=== PATIENT | female | born 1945 | race Caucasian/White ===

== ENCOUNTER → 2016-11-18 | Outpatient (CLI) | payer MEDICARE, MEDICAID ==
[~2016-11-18] MED LIST: AC500T PO; ACET-168 PO; ACET-2267 PO; ACET650S13 PO; ALBU0.632 IH; ALBU2.5V4 IH; AMAN100T PO; BACL10TA; BENZ100C18 PO; BETH25TA PO; BPR75T PO; BUDE6HFA IH; CARB1TAB2; CARB1TAB22 PO; CARB1TAB45 PO; CARB1TAB6; CARB1TAB6 PO; CARB1TAB7 PO; CEFP250T2 PO; CHOL100011 PO; CHOL2000 PO; CIPR-226 PO; CITA10TA PO; CLD600T PO; CLIN-62 PO; CPR500T PO; CYCL10TA9 PO; CYCL5TAB PO; DARI7.5T8 PO; DCS100C PO; DOCU-143 PO; DOCU100C37 PO; DULO30CA3 PO; DULO60CA6 PO; ENXP30I.3 SC; ERGO400C; EST30C VG; FEXO-104 PO; FLT05NA16 NSEACH; FNT25TD TD; FNT50TD TD; GABA300C; GBPN100C PO; GBPN300C PO; HYDR-34 PO; HYDR-3720 PO; HYDR-3816 PO; HYDR-707 PO; HYPR10GE4 OU; IBP600T1 PO; IBP800T PO; IBUP-1780 PO; LACT10SO PO; LACT1CAP66 PO; LEVBID; LISI10TA2 PO; LOPE-134 PO; LOPE1TAB13 PO; LORA0.5T PO; LORA0.5T34 PO; LORA1TAB PO; LRT10T PO; MAGN-47 PO; METH4TAB PO; MIRA50TA PO; MIRAPEX; MULT-608 PO; NITR-65 PO; OXYB5TAB9 PO; OXYBUTYNIN; OXYC-281 PO; OXYC-32 PO; OXYC1TAB87 PO; OXYCODONE 5 MG PO; PENI250T2 PO; PHEN-640 PO; PHEN100T26 PO; PRAM1.5T4 PO; PRAM1TAB3 PO; PRD10T PO; PROP10DR3 OU; QTP25T PO; RPN.25T; SIME125C75 PO; SLM50DS PO; SMT80CT PO; SULF1TAB35 PO; SULF1TAB38 PO; TIZA4CAP PO; TR5C15 TOP; TRIM100T7 PO; TRM50T PO
--- NOTE | 2016-11-18 16:11 | Diagnostic Imaging Report ---
EXAMINATION: Left upper extremity venous Doppler ultrasound. INDICATION: Edema and swelling. FINDINGS: The left internal jugular vein, left subclavian vein, axillary, brachial, radial, ulnar and cephalic and basilic veins are all patent with compressibility when applicable and venous waveforms and color flow demonstrated. IMPRESSION: No evidence of DVT in the left upper extremity. Dictated by: Dictated on workstation # [id number]
--- NOTE | 2016-11-18 16:12 | Diagnostic Imaging Report ---
EXAMINATION: AP and lateral views of the chest. INDICATION: Left upper extremity lymphedema. FINDINGS: The heart is markedly enlarged. There is minimal vascular congestion. No focal airspace opacity. No effusion or pneumothorax. The mediastinum and gerri appear unremarkable. Minimal degenerative changes of the thoracic spine are seen. IMPRESSION: Moderate to severe cardiomegaly. Minimal vascular congestion. Dictated by: Dictated on workstation # [id number]
== END ==
LOC: RAD 14:31
PROVIDERS: ATTEND Internal Medicine
DX: I89.0 Lymphedema, not elsewhere classified (principal); I51.7 Cardiomegaly; M79.89 Other specified soft tissue disorders
CPT/HCPCS: 71020

== ENCOUNTER → 2017-03-03 | Outpatient (CLI) | payer MEDICARE, MEDICAID | LOC: CARD 13:29 | PROVIDERS: ATTEND Internal Medicine | DX: Z51.81 Encounter for therapeutic drug level monitoring (principal); Z79.899 Other long term (current) drug therapy | CPT/HCPCS: 93005 ==

== ENCOUNTER → 2017-04-18 | Outpatient (CLI) | payer MEDICARE, MEDICAID ==
--- NOTE | 2017-04-20 11:00 | Diagnostic Imaging Report ---
Hepatic ultrasound. INDICATION: Hepatitis C. FINDINGS: Small portions of the pancreas are visible on this exam with no definite abnormality. The liver is fairly homogeneous with no focal lesion. Hepatopetal flow in the portal vein is seen. No focal hepatic mass. Gallbladder demonstrates no stones or wall thickening. No pericholecystic fluid. The right kidney is 11.5 cm in length with no hydronephrosis or focal lesion. No fluid collection in the upper right abdomen seen. Sonographic Hawkins sign reportedly negative. IMPRESSION: Unremarkable exam. Dictated by: Dictated on workstation # [id number]
== END ==
LOC: RAD 07:48
PROVIDERS: ATTEND Internal Medicine
DX: B19.20 Unspecified viral hepatitis C without hepatic coma (principal)
CPT/HCPCS: 76705

== ENCOUNTER 2018-10-24 14:58 | Emergency (ER) | payer MEDICARE, MEDICAID ==
[~2018-10-24] VITALS: Ht 157.5 cm; Wt 99.8 kg
[~2018-10-24 14:58] MED LIST changes: -HYDR-3816 PO
[2018-10-24] MEDS ORDERED: HYDROcodone/APAP 5 MG/325 MG (LORTAB) TAB PO ONE (15:15)
--- NOTE | 2018-10-24 15:16 | ED Back Pain ---
General Chief Complaint: Back Problems Stated Complaint: BACK PAIN Source of Information: Patient Exam Limitations: No Limitations History of Present Illness Date Seen by Provider: Oct 24, 2018 Time Seen by Provider: 15:15 Initial Comments To ER with reports of bilateral low back pain that radiates down both legs ongoing for some time but she got anxious about it today. From local [facility] Location: Lumbar Spine Timing/Duration: Getting Worse Severity: Moderate Method of Injury: Unknown Modifying Factors: Improves With Movement Allergies and Home Medications Allergies Coded Allergies: No Known Drug Allergies (Verified , 09/04/11) Home Medications Acetaminophen 500 Mg Tablet, 1,000 MG PO Q6H PRN for PAIN, (Reported) TAKES 2 (500MG) TABLETS Albuterol Sulfate 2.5 Mg/3 Ml Vial.neb, 2.5 MG IH Q6H PRN for SHORTNESS OF BREATH, (Reported) Amantadine Hcl 100 Mg Tablet, 100 MG PO DAILY, (Reported) Calcium Carbonate/Vitamin D3 1 Tab Tablet, 1 TAB PO DAILY, (Reported) Carbidopa/Levodopa 1 Each Tablet, 1 TAB PO SIX TIMES DAILY, (Reported) TAKE AT 0600,0830,1100,1330,1600,AND 1800 Cefuroxime Axetil 250 Mg Tablet, 250 MG PO BID Prescribed by: LATASHA GOFF on 10/24/18 1710 Citalopram Hydrobromide 10 Mg Tablet, 10 MG PO HS, (Reported) Cyclobenzaprine Hcl 10 Mg Tablet, 10 MG PO BID, (Reported) Docusate Sodium 100 Mg Capsule, 100 MG PO DAILY PRN for CONSTIPATION, (Reported) Duloxetine Hcl 60 Mg Capsule.dr, 60 MG PO EVERY OTHER DAY, (Reported) TAKE OPPOSITE DAY OF 30MG DOSE Duloxetine Hcl 30 Mg Cap, 30 MG PO EVERY OTHER DAY, (Reported) TAKE OPPOSITE DAY OF 60MG DOSE Estrogens Conjugated 30 Gm Cr, 0.3 APPFUL VG 1-2 TIMES WEEKLY PRN for PAIN, ( Reported) Hydrocodone Bit/Acetaminophen 1 Each Tablet, 1 TAB PO Q4H PRN for PAIN Prescribed by: RONNY PEREA on 09/01/15 0858 Hypromellose 10 Gm Gel..gram., 1 DROP OU HS, (Reported) Lactobacillus Combination No.4 1 Each Capsule, 1 CAP PO AC, (Reported) Lactulose 10 Gm/15 Ml Solution, 10 GM PO Q12H PRN for CONSTIPATION, (Reported) Lisinopril 10 Mg Tablet, 10 MG PO DAILY Prescribed by: RONNY PEREA on 09/01/15857 Loperamide HCl 2 Mg Tablet, 2 MG PO Q6H PRN for DIARRHEA, (Reported) Lorazepam 0.5 Mg Tablet, 0.5 MG PO BID, (Reported) Lorazepam 0.5 Mg Tablet, 0.5 MG PO BID Prescribed by: RONNY PEREA on 09/01/15857 Mirabegron 50 Mg Tab.er.24h, 50 MG PO DAILY, (Reported) Multivitamins 1 Tab Tablet, 1 TAB PO DAILY, (Reported) Oxycodone HCl/Acetaminophen 1 Each Tablet, 1 EACH PO Q4H PRN for PAIN-MODERATE Prescribed by: LATASHA GOFF on 10/24/181709 Pramipexole Di-Hcl 1.5 Mg Tablet, 1.5 MG PO BID, (Reported) Prednisone 10 Mg Tab, 10 MG PO DAILY Take 6 tabs (60mg) daily, decrease by 1 tab (10mg) every other day. Prescribed by: RONNY PEREA on 09/01/15857 Prednisone 20 Mg Tab, 40 MG PO DAILY Prescribed by: LATASHA GOFF on 10/24/181709 Propylene Glycol 10 Ml Drops, 1 DROP OU TID, (Reported) Simethicone 125 Mg Capsule, 125 MG PO TID, (Reported) Trimethoprim 100 Mg Tablet, 100 MG PO HS, (Reported) Patient Home Medication List Home Medication List Reviewed: Yes Review of Systems Constitutional: see HPI; No chills, No fever EENTM: see HPI Respiratory: no symptoms reported Cardiovascular: no symptoms reported Genitourinary: no symptoms reported Musculoskeletal: see HPI, back pain Skin: no symptoms reported Psychiatric/Neurological: No Symptoms Reported Past Bgioqlx-Rdahvb-Flhrei Hx Immunizations Up To Date Tetanus Booster (TDap): Unknown PED Vaccines UTD: No Date of Pneumonia Vaccine: Apr 27, 2012 Date of Influenza Vaccine: Mar 27, 2015 Seasonal Allergies Seasonal Allergies: No Past Medical History Reproductive Disorders: No Female 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 Sexually Transmitted Disease: No HIV/AIDS: No UTI-Chronic Gastroesophageal Reflux, Liver Disease/Jaundice, Hepatitis, Cirrhosis Arthritis Cataract Loss of Vision: Denies Hearing Impairment: Denies Sleep Difficulties, Anxiety, Depression Adverse Reaction/Blood Tranf: No Family Medical History Alcoholism 19 FATHER Cancer G8 SISTER (BREAST) Dementia 19 MOTHER Family history: Arthritis 19 MOTHER Family history: Diabetes mellitus 19 MOTHER No Family History of: Abdominal aortic aneurysm Congenital heart disease Family history: Alzheimer's disease Family history: Asthma Family history: Cardiovascular disease Family history: Gastrointestinal disease Family history: Hypertension Family history: Thyroid disorder Hereditary disease History of - anemia Myocardial infarction Parkinson's disease Prostate cancer Psychotic disorder Seizure disorder Stroke No Pertinent Family Hx Physical Exam Vital Signs Vital Signs - First Documented 10/24/18 15:02 Temp 98.4 Pulse 84 Resp 20 B/P (MAP) 134/72 (92) Pulse Ox 96 O2 Delivery Room Air Capillary Refill : Height, Weight, BMI Height: 5'0.00" Weight: 261lbs. 16.0oz. 118.123430qu; 50.97 BMI Method:Estimated General Appearance: No Apparent Distress, WD/WN HEENT: PERRL/EOMI, TMs Normal Neck: Full Range of Motion, Normal Inspection Respiratory: No Accessory Muscle Use, No Respiratory Distress Gastrointestinal: Non Tender, Soft Back: Normal Inspection Extremity: Normal Capillary Refill, Normal Inspection, Other (prefers to sit in wheelchair as this is position of comfort. ) Neurologic/Psychiatric: Alert, Oriented x3 Skin: Normal Color, Warm/Dry Progress/Results/Core Measures Results/Orders Lab Results Laboratory Tests Test 10/24/18 16:22 10/24/18 16:33 Range/Units White Blood Count 5.9 4.3-11.0 10^3/uL Red Blood Count 4.28 L 4.35-5.85 10^6/uL Hemoglobin 13.3 11.5-16.0 G/DL Hematocrit 41 35-52 % Mean Corpuscular Volume 95 80-99 FL Mean Corpuscular Hemoglobin 31 25-34 PG Mean Corpuscular Hemoglobin Concent 33 32-36 G/DL Red Cell Distribution Width 13.5 10.0-14.5 % Platelet Count 118 L 130-400 10^3/uL Mean Platelet Volume 9.7 7.4-10.4 FL Neutrophils (%) (Auto) 56 42-75 % Lymphocytes (%) (Auto) 31 12-44 % Monocytes (%) (Auto) 8 0-12 % Eosinophils (%) (Auto) 5 0-10 % Basophils (%) (Auto) 0 0-10 % Neutrophils # (Auto) 3.3 1.8-7.8 X 10^3 Lymphocytes # (Auto) 1.8 1.0-4.0 X 10^3 Monocytes # (Auto) 0.5 0.0-1.0 X 10^3 Eosinophils # (Auto) 0.3 0.0-0.3 10^3/uL Basophils # (Auto) 0.0 0.0-0.1 10^3/uL Sodium Level 141 135-145 MMOL/L Potassium Level 4.2 3.6-5.0 MMOL/L Chloride Level 103 98-107 MMOL/L Carbon Dioxide Level 25 21-32 MMOL/L Anion Gap 13 5-14 MMOL/L Blood Urea Nitrogen 21 H 7-18 MG/DL Creatinine 0.83 0.60-1.30 MG/DL Estimat Glomerular Filtration Rate > 60 BUN/Creatinine Ratio 25 Glucose Level 96 70-105 MG/DL Calcium Level 9.6 8.5-10.1 MG/DL Corrected Calcium 9.7 8.5-10.1 MG/DL Total Bilirubin 0.2 0.1-1.0 MG/DL Aspartate Amino Transf (AST/SGOT) 12 5-34 U/L Alanine Aminotransferase (ALT/SGPT) 10 0-55 U/L Alkaline Phosphatase 81 40-136 U/L Total Protein 6.6 6.4-8.2 GM/DL Albumin 3.9 3.2-4.5 GM/DL Urine Color YELLOW Urine Clarity CLEAR Urine pH 6.5 5-9 Urine Specific [place] 1.015 L 1.016-1.022 Urine Protein NEGATIVE NEGATIVE Urine Glucose (UA) NEGATIVE NEGATIVE Urine Ketones 1+ H NEGATIVE Urine Nitrite NEGATIVE NEGATIVE Urine Bilirubin NEGATIVE NEGATIVE Urine Urobilinogen 1 NORMAL MG/DL Urine Leukocyte Esterase 3+ H NEGATIVE Urine RBC (Auto) 1+ H NEGATIVE Urine RBC RARE /HPF Urine WBC 25-50 H /HPF Urine Squamous Epithelial Cells 5-10 /HPF Urine Renal Epithelial Cells NONE /HPF Urine Crystals PRESENT H /LPF Urine Amorphous Sediment RARE SAMY URATES H /LPF Urine Bacteria MODERATE H /HPF Urine Casts NONE /LPF Urine Mucus NEGATIVE /LPF Urine Culture Indicated YES My Orders Orders - LATASHA GOFF APRN Cbc With Automated Diff (10/24/18 15:13) Comprehensive Metabolic Panel (10/24/18 15:13) Ua Culture If Indicated (10/24/18 15:13) Straight Cath (Urinary) (10/24/18 15:13) Ct Lumbar Spine Wo (10/24/18 15:13) Chest 1 View, Ap/Pa Only (10/24/18 15:13) Hydrocodone/Apap 5/325 Tablet (Lortab 5 (10/24/18 15:15) Urine Culture (10/24/18 16:33) Ketorolac Injection (Toradol Injection) (10/24/18 17:15) Fentanyl Injection (Sublimaze Injection (10/24/18 17:15) Medications Given in ED Current Medications Medications Dose Ordered Sig/Ernst Route Start Time Stop Time Status Last Admin Dose Admin Acetaminophen/ Hydrocodone Bitart 1 tab ONCE ONCE PO 10/24/18 15:15 10/24/18 15:16 DC 10/24/18 15:42 1 TAB Fentanyl Citrate 25 mcg ONCE PRN IVP 10/24/18 17:15 10/24/18 17:19 25 MCG Ketorolac Tromethamine 30 mg ONCE ONCE IVP 10/24/18 17:15 10/24/18 17:16 DC 10/24/18 17:18 30 MG Vital Signs/I&O 10/24/18 15:02 Temp 98.4 Pulse 84 Resp 20 B/P (MAP) 134/72 (92) Pulse Ox 96 O2 Delivery Room Air Diagnostic Imaging Diagonstic Imaging: CT Comments NAME: DERICK JANSEN [facility] REC#: [id number] PT STATUS: REG ER : 1945 PHYSICIAN: LATASHA GOFF COVER MAKER ADMIT DATE: 10/24/18/ER Signed Date of Exam:10/24/18 CT LUMBAR SPINE WO PROCEDURE: CT lumbar spine without contrast. TECHNIQUE: Multiple contiguous axial images were obtained through the lumbar spine without the use of intravenous contrast. Sagittal and coronal reformations were then performed. Auto Exposure Controls were utilized during the CT exam to meet ALARA standards for radiation dose reduction. INDICATION: Low back pain. COMPARISON: Lumbar spine CT without contrast 11/22/2012. FINDINGS: There are 5 lumbar type vertebral bodies. Vertebral body heights preserved. No fractures. There are advanced diffuse degenerative endplate changes which have progressed since prior exam. This has resulted in fusion of the L5 and S1 segments. Disc space height and osteophyte formation results in advanced bilateral neural foraminal narrowing at L3-S1 bilaterally. There is mild to moderate bilateral neural foraminal narrowing bilaterally at T12-L3. Posterior disc osteophyte complex, facet arthropathy, and ligamentous hypertrophy appear to result in at least mild, possibly moderate spinal canal narrowing at L4-L5. No other high-grade spinal canal narrowing is evident on this non intrathecal contrast exam. Mild atherosclerotic calcifications. The visualized paravertebral soft tissues are otherwise unremarkable. IMPRESSION: 1. There are advanced degenerative endplate changes multilevel high-grade neural foraminal narrowing as above. 2. There is likely high-grade spinal canal narrowing at L4-L5. This can be better evaluated with CT myelogram or MRI. 3. No acute CT findings in the lumbar spine. Dictated by: Dictated on workstation # [id number] Dict: 10/24/18 1654 Trans: 10/24/18 170 CV [id number] Interpreted by: KIRT RINCON MD Electronically signed by: KIRT RINCON MD 10/24/185 Departure Impression Primary Impression: Lumbar radiculopathy Additional Impression: Spinal stenosis Qualified Codes: M48.00 - Spinal stenosis, site unspecified Disposition: 01 HOME, SELF-CARE Condition: Stable Departure-Patient Inst. Decision time for Depature: 17:08 Referrals: NICO HARTMANN DO (PCP/Family) Primary Care Physician Patient Instructions: Spinal Stenosis Stretching Exercises, Radiculopathy (DC) Add. Discharge Instructions: 1. Antibiotics as directed for the bladder infection. Steroids as directed in addition to the pain medication for the back pain. Follow-up with Dr. Hartmann, he may refer you to a spine surgeon or clock and watch hands painter. All discharge instructions reviewed with patient and/or family. Voiced understanding. Scripts Cefuroxime Axetil (Cefuroxime) 250 Mg Tablet 250 MG PO BID, #10 TAB Prov: LATASHA GOFF APRN 10/24/18 Prednisone (Prednisone) 20 Mg Tab 40 MG PO DAILY, #8 TAB 0 Refills Prov: LATASHA GOFF APRN 10/24/18 Oxycodone HCl/Acetaminophen (Oxycodone-Acetaminophen 5-325) 1 Each Tablet 1 EACH PO Q4H PRN for PAIN-MODERATE MDD 6 for 3 Days, #14 TAB 0 Refills Prov: LATASHA GOFF APRN 10/24/18 Copy Copies To 1: NICO HARTMANN PETER J APRN Oct 24, 2018 15:16
--- NOTE | 2018-10-24 15:40 | Diagnostic Imaging Report ---
INDICATION: Pain. COMPARISON: November 18, 2016. TECHNIQUE: A single radiograph of the chest is dated 10/24/2018. FINDINGS: The cardiac silhouette is enlarged although stable from the prior examination. No significant pulmonary vascular congestion. The lungs are clear. No pleural effusion. No pneumothorax. Scattered osseous degenerative changes without acute osseous abnormality. IMPRESSION: Cardiomegaly without pulmonary vascular congestion or additional superimposed acute cardiopulmonary abnormality. Dictated by: Dictated on workstation # [id number]
--- OUTSIDE RECORDS SUMMARY | 2018-10-24 16:02 | XMS REPORT | Encounter Summary ---
Author Author [facility] Organization [facility] Address Unknown Phone Unavailable Care Team Providers Care Head Automatic Sawyer Name Role Phone Chandrakant Guerra MD Unavailable Eddie Lopes MD Unavailable Leroy Hartmann MD PCP Reason for Visit * Reason Comments Parkinson's Disease w/ caregiver Encounter Details Care Team Description Date Type Department Eddie Lopes MD [address] [place] [address] Parkinson disease (HCC) (Primary Dx); Other depression; Chronic fatigue; Hypersomnia; Psychosis, unspecified psychosis type (HCC); Memory change; Restless legs syndrome (RLS) 10/04/2018 Office Visit [facility] [id number] [place] [address] Social History Date Tobacco Use Types Packs/Day Years Used Quit: 06/27/1972 Former Smoker Cigarettes Smokeless Tobacco: Never Used Alcohol Use Drinks/Week oz/Week Comments Yes 0 Standard 0.0 occ drinks or equivalent Sex Assigned at Date Recorded Not on file Industry Job Start Date Occupation Not on file Not on file Not on file Travel End Travel History Travel Start No recent travel history available. documented as of this encounter Last Filed Vital Signs Time Taken Vital Sign Reading 10/04/2018 11:32 AM CDT Blood Pressure 81/78 10/04/2018 11:32 AM CDT Pulse 66 - Temperature - - Respiratory Rate - - Oxygen Saturation - - Inhaled Oxygen - Concentration - Weight - - Height - - Body Mass Index - documented in this encounter Patient Instructions * Patient Instructions* Eddie Lopes MD - 10/04/2018 11:30 AM CDT You have been prescribed Neurontin (gabapentin) for Restless Leg Syndrome, pain or numbness. It is safe to use with your current Parkinsons disease medications. Initial Treatment: Neurontin (gabapentin) 100 mg one hour at lunch and supper Neurontin (gabapentin) can be taken as whole or half tablets. Common Side Effects As with all medications, there are potential side effects that may occur. Common side effects include swelling of feet, nausea, dizziness, balance difficulty, fatigue, sleepiness. Call [phone] if you have any questions or side effects. documented in this encounter Progress Notes * Eddie Lopes MD - 10/04/2018 11:30 AM CDT Date of Service: 10/04/2018 Subjective: Ramona Harp is a 73 y.o. female. History of Present Illness Parkinson's Disease Follow-Up Visit Since my last visit I am: Much worse Symptoms Scale: Memory problems: Moderate, affects some things Hallucinations/delusions: Mild, illusions Depression: Moderate, bothersome Anxiety: Marked, interferes with many activities Apathy: Marked, forced to do daily activities Impulsive behavior: Moderate, family problems Nighttime sleep: Moderate, wake up multiple times Daytime sleepiness: Mild, after taking my medications Vivid dreams: Moderate, disturbing REM sleep behavior disorder: Moderate, frequently act dreams but no injuries Restless leg syndrome: Marked, frequently affects sleeping Pain or muscle cramps: Marked, limits my activities Urination: Moderate, occasional accidents Constipation: Severe, always constipated Dizziness or lightheadedness: Slight, occasional on standing Tiredness/Fatigue: Moderate, often tired Falling: Mild, no more than once a month Personal care assistance: Marked, I have a lot of difficulty and I need help with a majority of tasks daily Total Score: Total Score: 56 Assistive Devices: Assistive devices for getting around: Wheelchair pushed by another person OFF Time: OFF time: No Dyskinesia: Dyskinesia while awake: Yes Hours/day of dyskinesia: 2 Number of episodes/day: 2 Dyskinesia disability: They are annoying to me Employment Status: Employment: Retired - due to PD Review of Systems Constitutional: Positive for fatigue. HENT: Positive for drooling. Respiratory: Negative for shortness of breath. Gastrointestinal: Negative. Genitourinary: Negative. Musculoskeletal: Positive for arthralgias, back pain, gait problem and myalgias. Psychiatric/Behavioral: Positive for hallucinations. Objective: acetaminophen (TYLENOL) 500 mg tablet Take 1,000 mg by mouth every 6 hours as needed for Pain. Max of 4,000 mg of acetaminophen in 24 hours. albuterol 0.5% (PROVENTIL; VENTOLIN) 2.5 mg/0.5 mL nebu nebulizer solution Inhale 2.5 mg solution as directed every 6 hours as needed. alum/mag hydroxide/simeth (MYLANTA, MAALOX PLUS) 200/200/20 mg/5 mL susp oral suspension Take 30 mL by mouth every 8 hours as needed. amantadine (SYMMETREL) 100 mg capsule Take one capsule by mouth daily. CALCIUM CARBONATE/VITAMIN D3 (CALCIUM + D PO) Take 1 Tab by mouth daily. carbidopa/levodopa (SINEMET) 25/250 mg tablet Take 1 Tab by mouth seven times daily. 6am-8:30-11-1:30-4-6-HS cholecalciferol (VITAMIN D-3) 1,000 units tablet Take 2,000 Units by mouth daily. cyclobenzaprine (FLEXERIL) 10 mg tablet Take 10 mg by mouth twice daily. docusate (COLACE) 100 mg capsule Take 100 mg by mouth daily as needed. duloxetine DR (CYMBALTA) 30 mg capsule Alternate 30mg and 60mg every other day (Patient taking differently: Take 60 mg by mouth daily.) famotidine (PEPCID) 20 mg tablet Take 20 mg by mouth twice daily. gabapentin (NEURONTIN) 100 mg capsule Take one capsule by mouth twice daily. At lunch and supper Indications: Extreme Discomfort in [place] when Sitting or Lying Down Lactobacillus rhamnosus GG (LACTOBACILLUS RHAMNOSUS (GG)) 15 billion cell cpSP Take by mouth twice daily with meals. lactulose 10 gram/15 mL oral solution Take 10 g by mouth daily. linaclotide(+) (LINZESS) 145 mcg cap capsule Take 72 mcg by mouth daily 30 minutes before breakfast. loperamide (IMODIUM) 2 mg capsule Take 2 mg by mouth every 6 hours as needed for Diarrhea. LORazepam (ATIVAN) 0.5 mg tablet Take 0.5 mg by mouth twice daily. losartan (COZAAR) 50 mg tablet Take 50 mg by mouth daily. melatonin 3 mg tab Take 3 mg by mouth at bedtime daily. menthol/camphor (BIOFREEZE TP) Apply topically to affected area. mirabegron (MYRBETRIQ) 50 mg Tb24 Take 25 mg by mouth daily. MULTIVITAMIN PO Take 1 Tab by mouth daily. ondansetron (ZOFRAN) 4 mg tablet Take 4 mg by mouth every 8 hours as needed for Nausea or Vomiting. pramipexole (MIRAPEX) 0.5 mg tablet Take 1 mg by mouth twice daily. propylene glycol (SYSTANE BALANCE) 0.6 % drop Place into or around eye(s). QUEtiapine (SEROQUEL) 100 mg tablet 0.5 tab in afternoon and 1 tab at bedtime Simethicone 125 mg tab Take by mouth three times daily. traMADol (ULTRAM) 50 mg tablet Take 50 mg by mouth every 6 hours as needed for Pain. trimethoprim (TRIMPEX) 100 mg tablet Take 100 mg by mouth at bedtime daily. There is no height or weight on file to calculate BMI. Physical Exam EXAMINATION: ORIENTATION: Alert and Oriented. Cranial Nerves: II-XII Unremarkable except reduced facial expression and soft voice. Right Left Bradkinesia Mild Mild Tremor Hands Resting None None Postural None None Kinetic None None Tremor Other: None Dyskinesia: None Muscle Strength: Unremarkable Gait: Needs assistance to stand and walk PDQ8 - Quality of Life Had difficulty getting around in public places?: Sometimes Had difficulty dressing?: Often [place] depressed?: Always Had problems with your close personal relationships?: Sometimes Had problems with your concentration, for example, when reading or watching TV? : Always [place] unable to communicate effectively?: Often Had painful muscle cramps or spasms?: Often [place] embarrassed in public due to having Parkinson's disease?: Sometimes PDQ8 Total Score (32 Possible): 23 PDQ8 Total %: 72 Geriatric Depression Scale: 27 suggesting severe depression [place] Sleepiness Scale: 20 suggesting daytime sleepiness Assessment and Plan: Problem Parkinson Disease (Hcc) Symptoms began in 1996, initial symptoms was left hand tremor. Diagnosed with Parkinson's disease in 1996. Atypical PD Features: None 10/31/2012 Patient was evaluated by Occupational Therapist, Stephanie Rhodes. 02/11/2015 PDQ8 Total %: 66 06/16/2016 PDQ8 Total %: 88 02/20/2017 PDQ8 Total %: 69 03/01/2018 PDQ8 Total %: 69 10/04/2018 PDQ8 Total %: 72 PD Psychosis No benefit with Nuplazid (pimavanserin) 03/01/2018 On Seroquel (quetiapine) Depression 02/11/2015 On Cymbalta (duloxetine) and Celexa (citalopram) 06/16/2016 Celexa (citalopram) discontinued by ? Fatigue Memory Change 04/14/10 MMSE 29/30 06/16/2016 MOCA Score (out of 30): 22 Restless Legs Syndrome (Rls) 10/31/2012 On Mirapex (pramipexole) Hypersomnia 04/14/10 [place] Sleepiness Scale 18 10/04/2018 [place] Sleepiness Scale: 20 Parkinson disease (HCC) Her symptoms are stable. No medication changes were recommended during the current visit. Depression Her symptoms are stable. No medication changes were recommended during the current visit. Fatigue Her symptoms are stable. No medication changes were recommended during the current visit. Memory change Her symptoms are stable. No medication changes were recommended during the current visit. Hypersomnia Her symptoms are stable. No medication changes were recommended during the current visit. PD Psychosis Her symptoms are stable. No medication changes were recommended during the current visit. Restless legs syndrome (RLS) Patient was started on Neurontin (gabapentin) 100 mg at 1p and 5p. Side effects of Neurontin (gabapentin) were discussed with the patient and she was given a list of common side effects. The patient will call us in 1-2 weeks if dose adjustments are needed. Patient will follow up in approximately 6 months. documented in this encounter Plan of Treatment Not on filedocumented as of this encounter Visit Diagnoses Diagnosis Parkinson disease (HCC) - Primary Paralysis agitans Other depression Chronic fatigue Other malaise and fatigue Hypersomnia Hypersomnia, unspecified Psychosis, unspecified psychosis type (HCC) Memory change Memory loss Restless legs syndrome (RLS) * Assessment & Plan Note - Eddie Lopes MD - 10/04/2018 12:06 PM CDT Associated Problem(s): Restless legs syndrome (RLS) Patient was started on Neurontin (gabapentin) 100 mg at 1p and 5p. Side effects of Neurontin (gabapentin) were discussed with the patient and she was given a list of common side effects. The patient will call us in 1-2 weeks if dose adjustments are needed. * Assessment & Plan Note - Eddie Lopes MD - 10/04/2018 12:05 PM CDT Associated Problem(s): PD Psychosis Her symptoms are stable. No medication changes were recommended during the current visit. * Assessment & Plan Note - Eddie Lopes MD - 10/04/2018 12:04 PM CDT Associated Problem(s): Hypersomnia Her symptoms are stable. No medication changes were recommended during the current visit. * Assessment & Plan Note - Eddie Lopes MD - 10/04/2018 12:04 PM CDT Associated Problem(s): Memory change Her symptoms are stable. No medication changes were recommended during the current visit. * Assessment & Plan Note - Eddie Lopes MD - 10/04/2018 12:04 PM CDT Associated Problem(s): Fatigue Her symptoms are stable. No medication changes were recommended during the current visit. * Assessment & Plan Note - Eddie Lopes MD - 10/04/2018 12:04 PM CDT Associated Problem(s): Depression Her symptoms are stable. No medication changes were recommended during the current visit. * Assessment & Plan Note - Eddie Lopes MD - 10/04/2018 12:03 PM CDT Associated Problem(s): Parkinson disease (HCC) Her symptoms are stable. No medication changes were recommended during the current visit. documented in this encounter
--- OUTSIDE RECORDS SUMMARY | 2018-10-24 16:02 | XMS REPORT | Clinical Summary ---
Author Author [facility] Organization [facility] Address Unknown Phone Unavailable Care Team Providers Care Stucco Applicator Name Role Phone Chandrakant Guerra MD Unavailable Eddie Lopes MD Unavailable Leroy Hartmann MD PCP Source Comments Some departments are not documenting in the electronic medical record. If you do not see the information that you expected, contact Release of Information in the Health Information Management department at [phone] for further assistance in locating additional records.[facility] Allergies No Known Allergies Medications End Date Status Medication Sig Dispensed Refills Start Date Active MULTIVITAMIN PO Take 1 Tab by 0 mouth daily. Active CALCIUM CARBONATE/VITAMIN Take 1 Tab by 0 D3 (CALCIUM + D PO) mouth daily. Active LORazepam (ATIVAN) 0.5 mg Take 0.5 mg 0 tablet by mouth twice daily. Active cyclobenzaprine Take 10 mg by 0 (FLEXERIL) 10 mg tablet mouth twice daily. Active albuterol 0.5% Inhale 2.5 mg 0 (PROVENTIL; VENTOLIN) 2.5 solution as mg/0.5 mL nebu nebulizer directed solution every 6 hours as needed. Active mirabegron (MYRBETRIQ) 50 Take 25 mg by 0 mg Tb24 mouth daily. Active Lactobacillus rhamnosus Take by 0 GG (LACTOBACILLUS mouth twice RHAMNOSUS (GG)) 15 daily with billion cell cpSP meals. Active trimethoprim (TRIMPEX) Take 100 mg 0 100 mg tablet by mouth at bedtime daily. Active docusate (COLACE) 100 mg Take 100 mg 0 capsule by mouth daily as needed. Active acetaminophen (TYLENOL) Take 1,000 mg 0 500 mg tablet by mouth every 6 hours as needed for Pain. Max of 4,000 mg of acetaminophen in 24 hours. Active loperamide (IMODIUM) 2 mg Take 2 mg by 0 capsule mouth every 6 hours as needed for Diarrhea. Active lactulose 10 gram/15 mL Take 10 g by 0 oral solution mouth daily. Active alum/mag hydroxide/simeth Take 30 mL by 0 (MYLANTA, MAALOX PLUS) mouth every 8 200/200/20 mg/5 mL susp hours as oral suspension needed. Active duloxetine DR (CYMBALTA) Alternate 30 Cap 5 30 mg capsuleIndications: 30mg and 60mg 6 Other depression every other day Active carbidopa/levodopa Take 1 Tab by 180 Tab 5 (SINEMET) 25/250 mg mouth seven 6 tabletIndications: times daily. Parkinson disease ([facility]) 6am-8:30-1 :30-4-6-HS Active losartan (COZAAR) 50 mg Take 50 mg by 0 tablet mouth daily. Active linaclotide(+) (LINZESS) Take 72 mcg 0 145 mcg cap capsule by mouth daily 30 minutes before breakfast. Active cholecalciferol (VITAMIN Take 2,000 0 D-3) 1,000 units tablet Units by mouth daily. Active melatonin 3 mg tab Take 3 mg by 0 mouth at bedtime daily. Active famotidine (PEPCID) 20 mg Take 20 mg by 0 tablet mouth twice daily. Active ondansetron (ZOFRAN) 4 mg Take 4 mg by 0 tablet mouth every 8 hours as needed for Nausea or Vomiting. Active traMADol (ULTRAM) 50 mg Take 50 mg by 0 tablet mouth every 6 hours as needed for Pain. Active QUEtiapine (SEROQUEL) 100 0.5 tab in 135 tablet 3 03/01/201 mg tabletIndications: afternoon and 8 Psychosis, unspecified 1 tab at psychosis type ([facility]) bedtime Active amantadine (SYMMETREL) Take one 30 capsule 11 100 mg capsule capsule by 8 mouth daily. Active menthol/camphor Apply 0 (BIOFREEZE TP) topically to affected area. Active pramipexole (MIRAPEX) 0.5 Take 1 mg by 0 mg tablet mouth twice daily. Active propylene glycol (SYSTANE Place into 0 BALANCE) 0.6 % drop or around eye(s). Active Simethicone 125 mg tab Take by 0 mouth three times daily. Active gabapentin (NEURONTIN) Take one 60 capsule 5 100 mg capsule by 9 capsuleIndications: mouth twice Restless Legs Syndrome daily. At lunch and supper Indications: Extreme Discomfort in [place] when Sitting or Lying Down Active Problems Problem Noted Date PD Psychosis 06/11/2014 Overview: No benefit with Nuplazid (pimavanserin) 03/01/2018 On Seroquel (quetiapine) L ast Assessment & Plan: Her symptoms are stable. No medication changes were recommended during the current visit. Hepatitis C 11/07/2013 Overview: Genotype 3, infection occurred some time between October and April 2012 based on blood bank records Cirrhosis 11/07/2013 Overview: Based on CT scan and compatible lab tests. Never had a liver biopsy. Likely secondary to GOMEZ rather than HCV Parkinson disease 10/31/2012 Overview: Symptoms began in 1996, initial symptoms was left hand tremor. Diagnosed with Parkinson's disease in 1996. Atypical PD Features: None 10/31/2012 Patient was evaluated by Occupational Therapist, Stephanie Rhodes. 02/11/2015 PDQ8 Total %: 66 06/16/2016 PDQ8 Total %: 88 02/20/2017 PDQ8 Total %: 69 03/01/2018 PDQ8 Total %: 69 10/04/2018 PDQ8 Total %: 72 L ast Assessment & Plan: Her symptoms are stable. No medication changes were recommended during the current visit. Depression 10/31/2012 Overview: 02/11/2015 On Cymbalta (duloxetine) and Celexa (citalopram) 06/16/2016 Celexa (citalopram) discontinued by ? L ast Assessment & Plan: Her symptoms are stable. No medication changes were recommended during the current visit. Fatigue 10/31/2012 Last Assessment & Plan: Her symptoms are stable. No medication changes were recommended during the current visit. Memory change 10/31/2012 Overview: 04/14/10 MMSE 29/30 06/16/2016 MOCA Score (out of 30): 22 L ast Assessment & Plan: Her symptoms are stable. No medication changes were recommended during the current visit. Restless legs syndrome (RLS) 10/31/2012 Overview: 10/31/2012 On Mirapex (pramipexole) L ast Assessment & Plan: Patient was started on Neurontin (gabapentin) 100 mg at 1p and 5p. Side effects of Neurontin (gabapentin) were discussed with the patient and she was given a list of common side effects. The patient will call us in 1-2 weeks if dose adjustments are needed. Hypersomnia 10/31/2012 Overview: 04/14/10 [place] Sleepiness Scale 18 10/04/2018 [place] Sleepiness Scale: 20 L ast Assessment & Plan: Her symptoms are stable. No medication changes were recommended during the current visit. Encounters Care Team Description Date Type Specialty Eddie Lopes MD Parkinson disease (HCC) (Primary Dx); Other depression; Chronic fatigue; Hypersomnia; Psychosis, unspecified psychosis type (HCC); Memory change; Restless legs syndrome (RLS) 10/04/2018 Office Visit Neurology from Last 3 Months Family History Medical History Relation Name Comments Cancer-Colon Father Age 84 Parkinson's Maternal Aunt Dementia Mother Tremor Mother Relation Name Status Comments Father Age 84 Maternal Aunt Mother Social History Date Tobacco Use Types Packs/Day [...] Travel Start No recent travel history available. Last Filed Vital Signs Time Taken Vital Sign Reading 10/04/2018 11:32 AM CDT Blood Pressure 81/78 10/04/2018 11:32 AM CDT Pulse 66 02/15/2017 10:25 AM CDT Temperature 36.7 C (98 F) 03/01/2018 12:50 PM CDT Respiratory Rate 20 02/20/2014 2:22 PM CDT Oxygen Saturation 94% - Inhaled Oxygen - Concentration 11/29/2017 12:57 PM CDT Weight 104.6 kg (230 lb 9.6 oz) 11/29/2017 12:57 PM CDT Height 148.5 cm (4' 10.47") 11/29/2017 12:57 PM CDT Body Mass Index 47.43 Plan of Treatment Health Maintenance Due Date Last Done Comments PHYSICAL (COMPREHENSIVE) 08/27/1954 EXAM DTAP/TDAP VACCINES (1 - 08/27/1965 Tdap) BREAST CANCER SCREENING 1987 COLORECTAL CANCER 08/27/1997 SCREENING SHINGLES RECOMBINANT 08/27/1997 VACCINE (1 of 2) OSTEOPOROSIS 08/27/2012 SCREENING/MONITORING PNEUMONIA (PCV13/PPSV23) 08/27/2012 VACCINES (1 of 2 - PCV13) INFLUENZA VACCINE 03/27/2019 Results Not on filefrom Last 3 Months Insurance Type Payer Benefit Subscriber ID Effective Phone Address Plan / Dates Group Medicare MEDICARE MEDICARE xxxxxxxxxx 2011-P PART A AND resent B PPO [facility] AARP xxxxxxxxxxx 2012-P resent Medicaid [facility] MEDICAID [place] [facility] xxxxxxxxxxx 2012-P COMMUNITY resent PLAN [place] Advance Directives Patient has advance care planning documents on file. For more information, please contact: [facility] [address] [place] [address]
--- OUTSIDE RECORDS SUMMARY | 2018-10-24 16:02 | XMS REPORT ---
Author Author Migration, Doctor Organization [facility] Address Unknown Phone Unavailable Care Team Providers Care Otolaryngology Teacher Name Role Phone Migration, Doctor Unavailable Unavailable PROBLEMS Type Condition ICD9-CM Code [id number] Code Onset Dates Condition Status SNOMED Code Problem STATE HEP A (ADULT) DX V05.3 Active [id number] ALLERGIES No Information ENCOUNTERS Encounter Location Date Diagnosis [facility] [id number] [place] [phone] May, Encounter for dental examination and cleaning without abnormal findings Z01.20 [facility] [id number] [place] [phone] Nov, [facility] [id number] [place] [phone] Aug, [facility] [id number] [place] [phone] Jul, IMMUNIZATIONS No Known Immunizations SOCIAL HISTORY Never Assessed REASON FOR VISIT EMR-[facility] PLAN OF CARE VITAL SIGNS MEDICATIONS No Known Medications RESULTS No Results PROCEDURES No Known procedures INSTRUCTIONS MEDICATIONS ADMINISTERED No Known Medications MEDICAL (GENERAL) HISTORY Type Description Date Medical History parkinson's disease Medical History dysarthria and anarthria Medical History hepatitis c Medical History adjustment disorder with mixed anxiety and depressed mood Medical History gastro-esophageal reflux disease Surgical History left knee replacement 2012
--- OUTSIDE RECORDS SUMMARY | 2018-10-24 16:03 | XMS REPORT ---
Author Author DAVID YOO [facility] [employer] Address Unknown Phone Unavailable Care Team Providers Care Engineering Mechanic Name Role Phone DAVID YOO CP Unavailable Allergies, Adverse Reactions, Alerts Substance Reaction Event Type N.K.D.A. Info Not Available Non Drug Allergy Problems Problem Type Condition Code Onset Dates Condition Status Problem STATE HEP A (ADULT) DX V05.3 Active Assessment Encounter for dental examination and cleaning without abnormal findings Z01.20 Active Problem Encounter for dental examination and cleaning without abnormal findings Z01.20 Active Medications Medication Code System Code Instructions Start Date End Date Status Dosage Calcium NDC 0 Oral 1 tab Amantadine HCl [facility] [address]-31 100 MG Orally Twice a day 2 capsules Pramipexole Dihydrochloride [facility] [address]-81 1.5 MG Orally Three times a day 1 tablet Simethicone [facility] [address]-74 125 MG Orally Four times a day 1 tablet as needed Carbidopa-Levodopa [facility] [address]-63 25-250 MG Orally Three times a day 1 tablet Citalopram Hydrobromide [facility] [address]-84 10 MG Orally Once a day 2 tablets Hydrocodone-Acetaminophen [facility] [address]-34 7.5-325 MG Orally every 6 hrs 1 tablet as needed Docusate Sodium [facility] [address]-74 100 MG Orally Once a day 1 capsule as needed Cymbalta [facility] [address]-12 60 MG Orally Once a day 1 capsule Albuterol Sulfate [facility] [address]-92 (2.5 MG/3ML) 0.083% Inhalation Three times a day 3 ml Cyclobenzaprine HCl [facility] [address]-17 10 MG Orally Three times a day 1 tablet Procedures Procedure Coding System Code Date INTRAORL-PERIAPICAL 1 FILM 14740 CPT-4 D0220 Jun 18, 2015 INTRAORL-PERIAPICAL EA ADD FILM CPT-4 D0230 Jun 18, 2015 COMP ORAL EVALUATION - NEW/EST PT CPT-4 D0150 Jun 18, 2015 PROPHYLAXIS - ADULT CPT-4 D1110 Jun 18, 2015 INTRAORL-PERIAPICAL EA ADD FILM CPT-4 D0230 Jun 18, 2015 Results No Known Results Summary Purpose eClinicalWorks Submission
--- OUTSIDE RECORDS SUMMARY | 2018-10-24 16:07 | XMS REPORT | Continuity of Care Document ---
Demographics Preferred Language Unknown Marital Status Unknown Mosque Affiliation Unknown Race Unknown Ethnic Group Unknown Author Organization Unknown Address Unknown Allergies Active Description Code Type Severity Reaction Onset Reported/Identified Relationship to Patient Clinical Status Yes NO KNOWN DRUG ALLERGIES UNKNOWN NO KNOWN DRUG ALLERG Yes No Known Drug Allergies [id number] Drug Allergy Unknown N/A 09/04/2011 Medications Medication Packaging Start Date Stop Date Route Dosage Sig CARBI/L-DOPA 25/250 TAB (SINEMET 25/250) tab 06/30/2017 07/08/2017 Q4H&0600,0830,1100,1130,1330,1600,1800 LOPERAMIDE CAP 2 MG (IMMODIUM) MG 06/30/2017 07/07/2017 PRN Q6H ACETAMINOPHEN TAB 500 MG (TYLENOL) MG 06/30/2017 07/14/2017 PRN Q6H Peg 400-propylene glycol) eye drops (Systane) DROP 06/30/2017 07/30/2017 PRN Q4H ALBUTEROL SVN 2.5MG/3CC LIQ 2.5 MG (PROVENTIL MARLENE 2.5MG/3CC) MG 06/30/2017 07/30/2017 PRN Q6H ALBUTEROL INHALER MDI 8 GM (VENTOLIN HFA) PUFF (S) 06/30/2017 07/10/2017 PRN Q6H Amantadine HCl (Symmetrel) oral capsule 100mg MG 06/30/2017 07/30/2017 BID&0800,2000 QUETIAPINE TAB 25 MG (SEROQUEL) MG 06/30/2017 07/30/2017 BID&0800,2000 PRAMIPEXOLE TAB 0.25 MG (MIRAPEX) MG 06/30/2017 07/30/2017 BID&0800,2000 LORAZEPAM TAB 0.5 MG (ATIVAN) MG 07/30/2017 TID&0800,1400,2000 SIMETHICONE CHEWABLE TAB 80 MG (MYLICON) MG 06/30/2017 07/30/2017 TID&0800,1400,2000 Artificial TEARS opht drops (TEARS for Dry Eyes) DROP 06/30/2017 07/10/2017 PRN Q12H CYCLOBENZAPRINE TAB 10 MG (FLEXERIL) MG 06/30/2017 07/30/2017 BID&0800,2000 PANTOPRAZOLE TAB 20 MG (PROTONIX) MG 06/30/2017 07/29/2017 QHS&2100 CARBI/L-DOPA 25/250 TAB (SINEMET 25/250) tab 06/30/2017 07/29/2017 QHS&2100 MELATONIN TAB 3 MG (MELATONIN) MG 06/30/2017 07/06/2017 QHS&2100 TRIMETHOPRIM TAB 100 MG (PROLOPRIM) MG 06/30/2017 07/29/2017 QHS&2100 POLYETHYLENE GLYCOL POWDER UD PWD (MIRALAX 17GM UNIT DOSE PAKS) gm 06/30/2017 07/10/2017 PRN Q3H CALMOSEPTINE OINT TUBE (RISAMINE OINT) maryana 06/30/2017 07/07/2017 PRN QID LOPERAMIDE CAP 2 MG (IMMODIUM) MG 06/30/2017 07/07/2017 PRN QID ALUM/MAG/SIMETH 30CC LIQ (MYLANTA PLUS) cc 06/30/2017 07/10/2017 PRN Q4H LACTOBACILLUS BULGARIS TAB (LACTINEX BULGARIS) tab 07/01/2017 07/10/2017 AC&0630,1130,1630 ALUM/MAG/SIMETH 30CC LIQ (MYLANTA PLUS) cc 07/01/2017 07/11/2017 PRN Q8H LACTULOSE SYRUP LIQ 20 GM/30CC (CHRONULAC SYRUP) GM 07/01/2017 07/10/2017 BID&0800,2000 MILK OF MAGNESIA LIQ ml 07/01/2017 07/07/2017 PRN BID LOSARTAN TAB 25 MG (COZAAR) MG 10/201707/30/2017 Daily&0900 LUBIPROSTONE CAP 24 MCG (AMITIZA) MCG 07/01/2017 07/30/2017 Daily&0900 Docusate sodium 100mg oral capsule (COLACE) MG 07/01/2017 07/11/2017 PRN Q24H DULOXETINE CAP 30 MG (CYMBALTA) MG 07/01/2017 07/29/2017 Q48H&0900 LACTULOSE SYRUP LIQ 20 GM/30CC (CHRONULAC SYRUP) GM 07/01/2017 07/11/2017 PRN Q24H VITAMIN D-3 TAB 1000 UNITS (VITAMIN D-3) UNITS 07/01/2017 07/30/2017 Daily&0900 CALCIUM 600MG W VIT D TAB 600 MG (OSCAL/W VIT D) MG 07/01/2017 07/30/2017 Daily&0900 MULTIVITAMIN CHEWS TAB (POLY VITAMIN CHEWS) tab 07/01/2017 07/30/2017 Daily&0900 Tolterodine oral capsule 4mg,extended release 24hr(Detrol LA 4mg) MG 07/01/2017 07/30/2017 Daily&0900 ACETAMINOPHEN TAB 500 MG (TYLENOL) MG 07/01/2017 07/31/2017 PRN Q6H LUBIPROSTONE CAP 24 MCG (AMITIZA) MCG 07/01/2017 07/31/2017 BID&0800,2000 QUETIAPINE TAB 25 MG (SEROQUEL) MG 07/01/2017 07/30/2017 QHS&2100 LORAZEPAM TAB 0.5 MG (ATIVAN) MG 07/30/2017 QHS&2100 Miconazole nitrate vagl cream (Monistat) APPLICATORFUL 07/01/2017 07/07/2017 QHS&2100 QUETIAPINE TAB 25 MG (SEROQUEL) MG 07/02/2017 07/31/2017 Daily&0900 LUBIPROSTONE CAP 24 MCG (AMITIZA) MCG 07/02/2017 07/31/2017 Daily&0900 LORAZEPAM TAB 0.5 MG (ATIVAN) MG 07/31/2017 Daily&0900 DULOXETINE CAP 30 MG (CYMBALTA) MG 07/02/2017 07/31/2017 Daily&0900 ACETAMINOPHEN TAB 500 MG (TYLENOL) MG 07/06/2017 08/05/2017 PRN Q6H Problems Date Dx Coded Attending Type Code Diagnosis Diagnosed By 02/26/2010 Ot 038.0 02/26/2010 Ot 041.4 02/26/2010 Ot 278.00 02/26/2010 Ot 332.0 02/26/2010 Ot 459.81 02/26/2010 Ot 493.00 02/26/2010 Ot 596.51 02/26/2010 Ot 599.0 02/26/2010 Ot 682.6 02/26/2010 Ot 715.89 02/26/2010 Ot 995.91 02/26/2010 Ot V85.4 03/04/2010 Ot 038.0 03/04/2010 Ot 041.4 03/04/2010 Ot 278.00 03/04/2010 Ot 300.4 03/04/2010 Ot 332.0 03/04/2010 Ot 493.00 03/04/2010 Ot 596.51 03/04/2010 Ot 599.0 03/04/2010 Ot 682.6 03/04/2010 Ot 715.89 03/04/2010 Ot 995.91 03/04/2010 Ot V57.1 03/04/2010 Ot V57.21 03/04/2010 Ot V85.4 04/19/2010 Ot 719.45 06/30/2010 Ot 719.45 06/30/2010 Ot 724.3 06/30/2010 Ot 729.5 07/21/2010 Ot 332.0 07/21/2010 Ot 715.35 07/21/2010 Ot 726.0 07/21/2010 Ot V57.1 03/19/2011 Ot 784.0 03/19/2011 Ot V57.1 08/09/2011 Ot 038.9 SEPTICEMIA NOS 08/09/2011 Ot 041.49 OTHER AND UNSPECIFIED ESCHERICHIA COLI [ 08/09/2011 Ot 278.00 OBESITY, NOS 08/09/2011 Ot 332.0 PARALYSIS AGITANS 08/09/2011 Ot 459.81 VENOUS INSUFFICIENCY NOS 08/09/2011 Ot 493.00 EXTRINSIC ASTHMA, NOS 08/09/2011 Ot 596.51 HYPERTONICITY OF BLADDER 08/09/2011 Ot 599.0 URIN TRACT INFECTION NOS 08/09/2011 Ot 682.6 CELLULITIS OF LEG 08/09/2011 Ot 715.90 OSTEOARTHROS NOS-UNSPEC 08/09/2011 Ot 995.91 SEPSIS 08/09/2011 Ot V85.36 BODY MASS INDEX 36.0-36.9, ADULT 09/14/2011 Ot 038.9 SEPTICEMIA NOS 09/14/2011 Ot 041.12 METHICILLIN RESISTANT STAPHYLOCOCCUS AUR 09/14/2011 Ot 278.00 OBESITY, NOS 09/14/2011 Ot 332.0 PARALYSIS AGITANS 09/14/2011 Ot 493.00 EXTRINSIC ASTHMA, NOS 09/14/2011 Ot 596.54 NEUROGENIC BLADDER, NOT OTHERWISE SPECIF 09/14/2011 Ot 680.6 CARBUNCLE OF LEG 09/14/2011 Ot 682.6 CELLULITIS OF LEG 09/14/2011 Ot 715.90 OSTEOARTHROS NOS-UNSPEC 09/14/2011 Ot 995.91 SEPSIS 09/14/2011 Ot V85.38 BODY MASS INDEX 38.0-38.9, ADULT 12/31/2011 Ot 278.00 OBESITY, NOS 12/31/2011 Ot 332.0 PARALYSIS AGITANS 12/31/2011 Ot 493.00 EXTRINSIC ASTHMA, NOS 12/31/2011 Ot 596.51 HYPERTONICITY OF BLADDER 12/31/2011 Ot 682.6 CELLULITIS OF LEG 12/31/2011 Ot 715.90 OSTEOARTHROS NOS-UNSPEC 12/31/2011 Ot 787.60 FULL INCONTINENCE OF FECES 12/31/2011 Ot 788.30 UNSPECIFIED URINARY INCONTINENCE 12/31/2011 Ot V12.04 PERSONAL HIST OF METHICILLIN RESISTANT S 12/31/2011 Ot V85.37 BODY MASS INDEX 37.0-37.9, ADULT 06/08/2012 Ot 332.0 PARALYSIS AGITANS 06/08/2012 Ot 715.36 LOC OSTEOARTH NOS-L/LEG 06/08/2012 Ot V57.1 PHYSICAL THERAPY NEC 07/30/2012 Ot 718.86 JT DERANGEMENT NEC-L/LEG 07/30/2012 Ot 719.46 JOINT PAIN-L /LEG 07/30/2012 Ot V71.4 OBSERV- ACCIDENT NEC 08/03/2012 V05.3 TWINRIX DX 08/03/2012 V05.3 TWINRIX DX 10/29/2012 JERMAINE DAVIS DO Ot 599.0 URIN TRACT INFECTION NOS 10/29/2012 JERMAINE DAVIS DO Ot 724.2 LUMBAGO 10/29/2012 JERMAINE DAVIS DO Ot 847.2 SPRAIN LUMBAR REGION 10/29/2012 JERMAINE DAVIS DO Ot E000.8 OTHER EXTERNAL CAUSE STATUS 10/29/2012 JERMAINE DAVIS DO Ot E849.0 ACCIDENT IN HOME 10/29/2012 JERMAINE DAVIS DO Ot E888.9 FALL NOS 11/07/2012 BRUEGGEBRIAN REN MD Ot 332.0 PARALYSIS AGITANS 11/07/2012 BRIAN CACERES MD Ot 720.2 SACROILIITIS NEC 11/07/2012 BRIAN CACERES MD Ot 724.2 LUMBAGO 11/07/2012 BRIAN CACERES MD Ot V58.69 OTH MED,LT,CURRENT USE 11/11/2012 SUSAN DO, JERMAINE K Ot 724.3 SCIATICA 11/11/2012 SUSAN DOMONSEA K Ot 729.5 PAIN IN LIMB 11/11/2012 SUSAN JERMAINE PRYOR K Ot 724.3 SCIATICA 11/15/2012 NICO PATEL DO Ot 332.0 PARALYSIS AGITANS 11/15/2012 NICO PATEL DO Ot V57.1 PHYSICAL THERAPY NEC 11/17/2012 BRIAN CACERES MD Ot 724.4 LUMBOSACRAL NEURITIS NOS 11/17/2012 BRIAN CACERES MD Ot 724.5 BACKACHE NOS 11/17/2012 BRIAN CACERES MD Ot 724.6 DISORDERS OF SACRUM 11/17/2012 OLIVIA ARROYO MD Ot 724.2 LUMBAGO 11/17/2012 OLIVIA ARROYO MD Ot 724.3 SCIATICA 11/28/2012 ANA MENDIOLA DIGITAL RECRUITER Ot 332.0 PARALYSIS AGITANS 11/28/2012 ANA MENDIOLA DIGITAL RECRUITER Ot 355.0 SCIATIC NERVE LESION 11/28/2012 ANA MENDIOLA DIGITAL RECRUITER Ot 724.6 DISORDERS OF SACRUM 11/28/2012 ANA MENDIOLA DIGITAL RECRUITER Ot V57.1 PHYSICAL THERAPY NEC 11/29/2012 NING QUINTERO MD Ot 070.51 ACUTE HEPATITIS C WITHOUT MENTION OF HEP 11/29/2012 NING QUINTERO MD Ot 273.8 DIS PLAS PROTEIN MET NEC 11/29/2012 NING QUINTERO MD Ot 278.00 OBESITY, NOS 11/29/2012 NING QUINTERO MD Ot 332.0 PARALYSIS AGITANS 11/29/2012 NING QUINTERO MD Ot 493.00 EXTRINSIC ASTHMA, NOS 11/29/2012 NING QUINTERO MD Ot 596.51 HYPERTONICITY OF BLADDER 11/29/2012 NING QUINTERO MD Ot 722.52 LUMB/LUMBOSAC DISC DEGEN 11/29/2012 NING QUINTERO MD, Ot V15.51 PERSONAL HISTORY OF TRAUMATIC FRACTURE 11/29/2012 NING QUINTERO MD Ot V15.88 HISTORY OF FALL 11/29/2012 NING QUINTERO MD Ot V57.1 PHYSICAL THERAPY NEC 11/29/2012 NING QUINTERO MD Ot V57.21 ENCOUNTER FOR OCCUPATIONAL THERAPY 11/29/2012 NING QUINTERO MD Ot V85.41 BODY MASS INDEX 40.0-44.9, ADULT 03/23/2013 NICO PATEL DO Ot 070.54 CHRONIC HEPATITIS C W/O HEPATIC COMA 03/23/2013 NICO PATEL DO Ot 278.00 OBESITY, NOS 03/23/2013 NICO PATEL DO Ot 311 DEPRESSIVE DISORDER NEC 03/23/2013 NICO PATEL DO Ot 332.0 PARALYSIS AGITANS 03/23/2013 NICO PATEL DO Ot 338.29 OTHER CHRONIC PAIN 03/23/2013 NICO PATEL DO Ot 477.9 ALLERGIC RHINITIS NOS 03/23/2013 NICO PATEL DO Ot 596.51 HYPERTONICITY OF BLADDER 03/23/2013 NICO PATEL DO Ot 722.52 LUMB/LUMBOSAC DISC DEGEN 03/23/2013 NICO PATEL DO Ot 781.2 ABNORMALITY OF GAIT 03/23/2013 NICO PATEL DO Ot V02.54 CARRIER, SUSP KAUR METHICILLIN RESISTN S 03/23/2013 NICO PATEL DO Ot V04.81 ND FOR PROPHYLACTIC VACCIN AND INOCULATI 03/23/2013 NICO PATEL DO Ot V15.88 HISTORY OF FALL 03/23/2013 NICO PATEL DO Ot V61.8 FAMILY CIRCUMSTANCES NEC 03/23/2013 NICO PATEL DO, Ot V62.84 SUICIDAL IDEATION 03/23/2013 NICO PATEL DO Ot V85.39 BODY MASS INDEX 39.0-39.9, ADULT 06/10/2013 OLIVIA ARROYO MD Ot 719.45 JOINT PAIN-PELVIS 06/10/2013 OLIVIA ARROYO MD Ot 724.5 BACKACHE NOS 01/04/2014 SUSY VELA MD Ot 070.70 UNSPECIFIED VIRAL HEPATITIS C WITHOUT HE 01/04/2014 SUSY VELA MD Ot 332.0 PARALYSIS AGITANS 01/04/2014 SUSY VELA MD Ot 715.36 LOC OSTEOARTH NOS-L/LEG 01/04/2014 SUSY VELA MD Ot 780.4 DIZZINESS AND GIDDINESS 01/04/2014 SUSY VELA MD Ot 780.52 INSOMNIA, UNSPECIFIED 01/04/2014 SUSY VELA MD Ot 781.2 ABNORMALITY OF GAIT 01/04/2014 SUSY VELA MD Ot V12.09 PERSONAL HISTORY OTH SPEC INFECT DOREEN 01/04/2014 SUSY VELA MD Ot V13.02 PERSONAL HISTORY, URINARY (TRACT) INFECT 01/04/2014 SUSY VELA MD Ot V15.82 HISTORY OF TOBACCO USE 01/16/2014 LEON LEOS NING E Ot 070.54 CHRONIC HEPATITIS C W/O HEPATIC COMA 01/16/2014 LEON LEOS, NING E Ot 273.8 DIS PLAS PROTEIN MET NEC 01/16/2014 LEON LEOS, NING E Ot 278.00 OBESITY, NOS 01/16/2014 LEON LEOS, NING E Ot 285.9 ANEMIA NOS 01/16/2014 LEON LEOS, NING E Ot 300.00 ANXIETY STATE NOS 01/16/2014 LEON LEOS NING E Ot 332.0 PARALYSIS AGITANS 01/16/2014 LEON LEOS NING E Ot 477.9 ALLERGIC RHINITIS NOS 01/16/2014 LEON LEOS NING E Ot 596.54 NEUROGENIC BLADDER, NOT OTHERWISE SPECIF 01/16/2014 LEON LEOS NING E Ot 721.3 LUMBOSACRAL SPONDYLOSIS 01/16/2014 LEON LEOS NING E Ot 780.4 DIZZINESS AND GIDDINESS 01/16/2014 LEON LEOS NING E Ot 780.52 INSOMNIA, UNSPECIFIED 01/16/2014 LEON LEOS NING E Ot 786.59 CHEST PAIN NEC 01/16/2014 LEON LEOS NING E Ot 788.20 RETENTION OF URINE NOS 01/16/2014 NING QUINTERO MD E Ot V43.65 KNEE JOINT REPLACEMENT STATUS 01/16/2014 LEON LEOS NING E Ot V54.81 AFTERCARE FOLLOWING JOINT REPLACEMENT 01/16/2014 LEON LEOS NING E Ot V57.89 REHABILITATION PROC NEC 01/16/2014 LEON LEOS, NING Riley Ot V85.38 BODY MASS INDEX 38.0-38.9, ADULT 07/27/2014 NICO PATEL DO Ot 599.0 01/27/2015 Ot 332.0 01/27/2015 Ot V81.5 01/27/2015 Ot 332.0 01/27/2015 Ot 721.3 01/27/2015 Ot 599.0 01/27/2015 Ot 070.70 01/27/2015 Ot 070.54 01/27/2015 NICO PATEL DO Ot 788.1 01/27/2015 NICO PATEL DO Ot 724.5 01/27/2015 VELMA LEOS, REJI Dill Ot 599.70 01/27/2015 DANE LEOS, SUSY P Ot 715.36 01/27/2015 DANE LEOS, SUSY P Ot V72.63 01/27/2015 DANE LEOS, SUSY P Ot V72.81 01/27/2015 DANE LEOS, SUSY P Ot V72.83 01/27/2015 DANE LEOS, SUSY P Ot V72.84 01/27/2015 DANE LEOS, SUSY P Ot V74.8 01/27/2015 GOOD LEOS, AUGUSTA Dill Ot 070.70 01/27/2015 GOOD LEOS, AUGUSTA Dill Ot 571.5 01/27/2015 DANE LEOS, SUSY P Ot 599.0 01/27/2015 DANE LEOS, SUSY P Ot 715.36 01/27/2015 DANE LEOS, SUSY P Ot 780.79 01/27/2015 DANE LEOS, SUSY P Ot V72.63 01/27/2015 DANE LEOS, SUSY P Ot V74.8 01/27/2015 NICO PATEL DO Ot 599.0 01/29/2015 DANE LEOS, SUSY P Ot 311 DEPRESSIVE DISORDER NEC 01/29/2015 DANE LEOS, SUSY P Ot 332.0 PARALYSIS AGITANS 01/29/2015 DANE LEOS, SUSY P Ot 354.0 CARPAL TUNNEL SYNDROME 01/29/2015 DANE LEOS, SUSY P Ot 716.90 ARTHROPATHY NOS-UNSPEC 01/29/2015 DANE LEOS, SUSY P Ot 733.00 OSTEOPOROSIS NOS 05/09/2015 VELMA LEOS, REJI Dill Ot N32.81 OVERACTIVE BLADDER 05/09/2015 VELMA LEOS, REJI Dill Ot N36.42 INTRINSIC SPHINCTER DEFICIENCY (ISD) 05/09/2015 VELMA LEOS, REJI Dill Ot R32 UNSPECIFIED URINARY INCONTINENCE 07/14/2015 Ot 599.0 07/14/2015 Ot 070.70 07/14/2015 Ot 070.54 07/14/2015 NICO PATEL DO Ot 788.1 07/14/2015 NICO PATEL DO Ot 724.5 07/14/2015 VELMA LEOS, REJI Dill Ot 599.70 07/14/2015 DANE LEOS, SUSY P Ot 715.36 07/14/2015 DANE LEOS, SUSY P Ot V72.63 07/14/2015 DANE LEOS, SUSY P Ot V72.81 07/14/2015 DANE LEOS, SUSY P Ot V72.83 07/14/2015 DANE LEOS, SUSY P Ot V72.84 07/14/2015 DANE LEOS, USSY P Ot V74.8 07/14/2015 GOOD LEOS, AUGUSTA Dill Ot 070.70 07/14/2015 GOOD LEOS, AUGUSTA Dill Ot 571.5 07/14/2015 DANE LEOS, SUSY P Ot 599.0 07/14/2015 DANE LEOS, SUSY P Ot 715.36 07/14/2015 DANE LEOS, SUSY P Ot 780.79 07/14/2015 DANE LEOS, SUSY P Ot V72.63 07/14/2015 DANE LEOS, SUSY P Ot V74.8 07/14/2015 NICO PATEL DO Ot 599.0 07/14/2015 DANE LEOS, SUSY P Ot 354.0 07/14/2015 DANE LEOS, SUSY P Ot V72.84 07/14/2015 DANE LEOS, SUSY P Ot V74.8 07/14/2015 VELMA LEOS, REJI Dill Ot N32.81 07/14/2015 VELMA LEOS, REJI Dill Ot N36.42 07/14/2015 VELMA LEOS, REJI Dill Ot N39.46 07/14/2015 VELMA LEOS, REJI Dill Ot Z01.818 07/15/2015 Ot 599.0 07/15/2015 Ot 070.70 07/15/2015 Ot 070.54 07/15/2015 NICO PATEL DO Ot 788.1 07/15/2015 JORGE PRYOR, NICO Morrell Ot 724.5 07/15/2015 VELMA LEOS, REJI Dill Ot 599.70 07/15/2015 DANE LEOS, SUSY P Ot 715.36 07/15/2015 DANE LEOS, SUSY P Ot V72.63 07/15/2015 DANE LEOS, SUSY P Ot V72.81 07/15/2015 DANE LEOS, SUSY P Ot V72.83 07/15/2015 DANE LEOS, SUSY P Ot V72.84 07/15/2015 DANE LEOS, SUSY P Ot V74.8 07/15/2015 GOOD LEOS, AUGUSTA Dill Ot 070.70 07/15/2015 GOOD LEOS, AUGUSTA Dill Ot 571.5 07/15/2015 DANE ELOS, SUSY P Ot 599.0 07/15/2015 DANE LEOS, SUSY P Ot 715.36 07/15/2015 DANE LEOS, SUSY P Ot 780.79 07/15/2015 DANE LEOS, SUSY P Ot V72.63 07/15/2015 DANE LEOS, SUSY P Ot V74.8 07/15/2015 NICO PATEL DO Ot 599.0 07/15/2015 DANE LEOS, SUSY P Ot 354.0 07/15/2015 DANE LEOS, SUSY P Ot V72.84 07/15/2015 DANE LEOS, SUSY P Ot V74.8 07/15/2015 VELMA LEOS, REJI Dill Ot N32.81 07/15/2015 VELMA LEOS, REJI Dlil Ot N36.42 07/15/2015 VELMA LEOS, REJI Dill Ot N39.46 07/15/2015 VELMA LEOS, REJI Dill Ot Z01.818 08/12/2015 NICO PATEL DO Ot Z12.31 08/12/2015 JENNIFER LEOS, CHLOE Adhikari Ot N32.81 OVERACTIVE BLADDER 08/12/2015 JENNIFER LEOS, CHLOE Adhikari Ot N36.42 INTRINSIC SPHINCTER DEFICIENCY (ISD) 08/12/2015 JENNIFER LOES, CHLOE Adhikari Ot N39.3 STRESS INCONTINENCE (FEMALE) (MALE) 08/12/2015 JENNIFER LEOS, CHLOE Adhikari Ot N81.10 CYSTOCELE, UNSPECIFIED 08/12/2015 CHLOE RODRIGUEZ MD, Ot N81.6 RECTOCELE 08/13/2015 NICO PATEL DO Ot Z12.31 08/27/2015 Ot 599.0 08/27/2015 Ot 070.70 08/27/2015 Ot 070.54 08/27/2015 NICO PATEL DO Ot 788.1 08/27/2015 NICO PATEL DO Ot 724.5 08/27/2015 VELMA LEOS, REJI Dill Ot 599.70 08/27/2015 DANE LEOS, SUSY P Ot 715.36 08/27/2015 DANE LEOS, SUSY P Ot V72.63 08/27/2015 DANE LEOS, SUSY P Ot V72.81 08/27/2015 DANE LEOS, SUSY P Ot V72.83 08/27/2015 DANE LEOS, SUSY P Ot V72.84 08/27/2015 DANE LEOS, SUSY P Ot V74.8 08/27/2015 GOOD LEOS, AUGUSTA Dill Ot 070.70 08/27/2015 GOOD LEOS, AUGUSTA Dill Ot 571.5 08/27/2015 DANE LEOS, SUSY P Ot 599.0 08/27/2015 DANE LEOS, SUSY P Ot 715.36 08/27/2015 DANE LEOS, SUSY P Ot 780.79 08/27/2015 DANE LEOS, SUSY P Ot V72.63 08/27/2015 DANE LOES, SUSY P Ot V74.8 08/27/2015 NICO PATEL DO Ot 599.0 08/27/2015 DANE LEOS, SUSY P Ot 354.0 08/27/2015 DANE LEOS, SUSY P Ot V72.84 08/27/2015 DANE LEOS, SUSY P Ot V74.8 08/27/2015 VELMA LEOS, REJI Dill Ot N32.81 08/27/2015 VELMA LEOS, REJI A Ot N36.42 08/27/2015 VELMA LEOS, REJI Dill Ot N39.46 08/27/2015 VELMA LEOS, REJI Dill Ot Z01.818 08/27/2015 NICO PATEL DO Ot Z12.31 08/27/2015 JENNIFER LEOS, CHLOE Onofre Ot D64.9 08/27/2015 JENNIFER LEOS, CHLOE Onofre Ot N39.3 08/27/2015 JENNIFER LEOS, CHLOE Onofre Ot N81.6 08/27/2015 JENNIFER LEOS, CHLOE Onofre Ot Z01.818 08/27/2015 PEREA DO, RONNY Ot E66.9 08/27/2015 PEREA DO, RONNY Ot G20 08/27/2015 PEREA DO, RONNY Ot J04.10 08/27/2015 PEREA DO, RONNY Ot J18.9 08/27/2015 PEREA DO, RONNY Ot J98.01 08/27/2015 PEREA DO, RONNY Ot Z68.43 08/27/2015 PEREA DO, RONNY Ot E66.9 08/27/2015 PEREA DO, RONNY Ot G20 08/27/2015 PEREA DO, RONNY Ot J04.10 08/27/2015 PEREA DO, RONNY Ot J18.9 08/27/2015 PEREA DO, RONNY Ot J98.01 08/27/2015 PEREA DO, RONNY Ot Z68.43 2015 PEREA DO, RONNY Ot E66.9 2015 PEREA DO, RONNY Ot G20 2015 PEREA DO, RONNY Ot J04.10 2015 PEREA DO, RONNY Ot J18.9 2015 PEREA DO, RONNY Ot J98.01 2015 PEREA DO, RONNY Ot Z68.43 08/29/2015 PEREA DO, RONNY Ot B18.2 CHRONIC VIRAL HEPATITIS C 08/29/2015 PEREA DO, RONNY Ot E66.9 OBESITY, UNSPECIFIED 08/29/2015 BRIT DO RONNY Ot F32.9 MAJOR DEPRESSIVE DISORDER, SINGLE EPISOD 08/29/2015 BRIT PRYOR RONNY Ot F41.9 ANXIETY DISORDER, UNSPECIFIED 08/29/2015 BRIT PRYOR RONNY Ot G20 PARKINSON'S DISEASE 08/29/2015 BRIT PRYOR RONNY Ot G47.33 OBSTRUCTIVE SLEEP APNEA (ADULT) (PEDIATR 08/29/2015 PEREAJOHNNA PRYOR RONNY Ot J04.10 08/29/2015 ARJUN PEREA DOI Ot J18.9 PNEUMONIA, UNSPECIFIED ORGANISM 08/29/2015 ARJUN PEREA DOI Ot J20.9 ACUTE BRONCHITIS, UNSPECIFIED 08/29/2015 ARJUN PEREA DOI Ot J90 PLEURAL EFFUSION, NOT ELSEWHERE CLASSIFI 08/29/2015 ARJUN PEREA DOI Ot J96.00 ACUTE RESPIRATORY FAILURE, UNSP W HYPOXI 08/29/2015 BRIT PRYOR RONNY Ot J98.01 08/29/2015 ARJUN PEREA DOI Ot J98.11 ATELECTASIS 08/29/2015 ARJUN PEREA DOI Ot K21.9 GASTRO-ESOPHAGEAL REFLUX DISEASE WITHOUT 08/29/2015 ARJUN PEREA DOI Ot K59.00 CONSTIPATION, UNSPECIFIED 08/29/2015 BRIT PRYOR RONNY Ot K74.60 UNSPECIFIED CIRRHOSIS OF LIVER 08/29/2015 BRIT PRYOR RONNY Ot Z66 DO NOT RESUSCITATE 08/29/2015 ARJUN PEREA DOI Ot Z68.43 BODY MASS INDEX (BMI) 50-59.9 , ADULT 08/29/2015 BRIT PRYOR RONNY Ot Z87.891 PERSONAL HISTORY OF NICOTINE DEPENDENCE 09/01/2015 BRIT PRYOR RONNY Ot B18.2 CHRONIC VIRAL HEPATITIS C 09/01/2015 BRIT PRYOR RONNY Ot E66.9 OBESITY, UNSPECIFIED 09/01/2015 ARJUN PEREA DOI Ot F32.9 MAJOR DEPRESSIVE DISORDER, SINGLE EPISOD 09/01/2015 ARJUN PEREA DOI Ot F41.9 ANXIETY DISORDER, UNSPECIFIED 09/01/2015 BRIT PRYOR RONNY Ot G20 PARKINSON'S DISEASE 09/01/2015 BRIT PRYOR RONNY Ot G47.33 OBSTRUCTIVE SLEEP APNEA (ADULT) (PEDIATR 09/01/2015 ARJUN PEREA DOI Ot J18.9 PNEUMONIA, UNSPECIFIED ORGANISM 09/01/2015 ARJUN PEREA DOI Ot J20.9 ACUTE BRONCHITIS, UNSPECIFIED 09/01/2015 ARJUN PEREA DOI Ot K21.9 GASTRO-ESOPHAGEAL REFLUX DISEASE WITHOUT 09/01/2015 RONNY PEREA DO Ot K59.00 CONSTIPATION, UNSPECIFIED 09/01/2015 ARJUN PEREA DOI Ot K74.60 UNSPECIFIED CIRRHOSIS OF LIVER 09/01/2015 ARJUN PEREA DOI Ot Z66 DO NOT RESUSCITATE 09/01/2015 ARJUN PEREA DOI Ot Z68.43 BODY MASS INDEX (BMI) 50-59.9 , ADULT 09/01/2015 RONNY PEREA DO Ot Z87.891 PERSONAL HISTORY OF NICOTINE DEPENDENCE 12/26/2015 JERMAINE DAVIS DO Ot 724.3 SCIATICA 01/26/2016 NICKI LEOS, BRIAN Chakraborty Ot 724.4 LUMBOSACRAL NEURITIS NOS 01/26/2016 NICKI LEOS, BRIAN Chakraborty Ot 724.5 BACKACHE NOS 01/26/2016 NICKI LEOS, BRIAN Chakraborty Ot 724.6 DISORDERS OF SACRUM 07/28/2016 OLIVIA ARROYO MD Ot 724.2 LUMBAGO 07/28/2016 OLIVIA ARROYO MD Ot 724.3 SCIATICA 08/25/2016 OLIVIA ARROYO MD Ot 724.2 LUMBAGO 08/25/2016 OLIVIA ARROYO MD Ot 724.3 SCIATICA 09/25/2016 NICKI LEOS, BRIAN Chakraborty Ot 724.4 LUMBOSACRAL NEURITIS NOS 09/25/2016 BRIAN CACERES MD Ot 724.5 BACKACHE NOS 09/25/2016 NICKI LEOS, BRIAN Chakraborty Ot 724.6 DISORDERS OF SACRUM 10/25/2016 OLIVIA ARROYO MD Ot 724.2 LUMBAGO 10/25/2016 OLIVIA ARROYO MD Ot 724.3 SCIATICA 11/17/2016 NICO PATEL DO Ot I89.0 LYMPHEDEMA, NOT ELSEWHERE CLASSIFIED 11/17/2016 Ot 599.0 URIN TRACT INFECTION NOS 11/17/2016 Ot 070.70 UNSPECIFIED VIRAL HEPATITIS C WITHOUT HE 11/17/2016 Ot 070.54 CHRONIC HEPATITIS C W/O HEPATIC COMA 11/17/2016 NICO PATEL DO Ot 788.1 DYSURIA 11/17/2016 NICO PATEL DO Ot 724.5 BACKACHE NOS 11/17/2016 REJI CARREON MD Ot 599.70 HEMATURIA, UNSPECIFIED 11/17/2016 SUSY VELA MD Ot 715.36 LOC OSTEOARTH NOS-L/LEG 11/17/2016 SUSY VELA MD Ot V72.63 PRE-PROCEDURAL LABORATORY EXAMINATION 11/17/2016 SUSY VELA MD Ot V72.81 QTGR-UCO-TLYHYJEPM CARDIOVASCULAR 11/17/2016 SUSY VELA MD Ot V72.83 EXAM PRE-OPERATIVE NEC 11/17/2016 SUSY VELA MD Ot V72.84 EXAM PRE-OPERATIVE NOS 11/17/2016 SUSY VELA MD Ot V74.8 SCREEN-BACTERIAL DIS NEC 11/17/2016 AUGUSTA FUNK MD Ot 070.70 UNSPECIFIED VIRAL HEPATITIS C WITHOUT HE 11/17/2016 GOOD LEOS, AUGUSTA Dill Ot 571.5 CIRRHOSIS OF LIVER NOS 11/17/2016 SUSY VELA MD Ot 599.0 URIN TRACT INFECTION NOS 11/17/2016 SUSY VELA MD Ot 715.36 LOC OSTEOARTH NOS-L/LEG 11/17/2016 SUSY VELA MD Ot 780.79 OTH MALAISE FATIGUE 11/17/2016 SUSY VELA MD Ot V72.63 PRE-PROCEDURAL LABORATORY EXAMINATION 11/17/2016 SUSY VELA MD Ot V74.8 SCREEN-BACTERIAL DIS NEC 11/17/2016 NICO PATEL DO Ot 599.0 URIN TRACT INFECTION NOS 11/17/2016 SUSY VELA MD Ot 354.0 CARPAL TUNNEL SYNDROME 11/17/2016 SUSY VELA MD Ot V72.84 EXAM PRE-OPERATIVE NOS 11/17/2016 SUSY VELA MD Ot V74.8 SCREEN-BACTERIAL DIS NEC 11/17/2016 REJI CARREON MD Ot N32.81 OVERACTIVE BLADDER 11/17/2016 REJI CARREON MD Ot N36.42 INTRINSIC SPHINCTER DEFICIENCY (ISD) 11/17/2016 REJI CARREON MD Ot N39.46 MIXED INCONTINENCE 11/17/2016 REJI CARREON MD Ot Z01.818 ENCOUNTER FOR OTHER PREPROCEDURAL EXAMIN 11/17/2016 NICO PATEL DO Ot Z12.31 ENCNTR SCREEN MAMMOGRAM FOR MALIGNANT NE 11/17/2016 CHLOE RODRIGUEZ MD, Ot D64.9 ANEMIA, UNSPECIFIED 11/17/2016 CHLOE RODRIGUEZ MD, Ot N39.3 STRESS INCONTINENCE (FEMALE) (MALE) 11/17/2016 CHLOE RODRIGUEZ MD, Ot N81.6 RECTOCELE 11/17/2016 CHLOE RODRIGUEZ MD, Ot Z01.818 ENCOUNTER FOR OTHER PREPROCEDURAL EXAMIN 11/17/2016 NICO PATEL DO Ot I89.0 LYMPHEDEMA, NOT ELSEWHERE CLASSIFIED 11/18/2016 Ot 599.0 URIN TRACT INFECTION NOS 11/18/2016 Ot 070.70 UNSPECIFIED VIRAL HEPATITIS C WITHOUT HE 11/18/2016 Ot 070.54 CHRONIC HEPATITIS C W/O HEPATIC COMA 11/18/2016 NICO PATEL DO Ot 788.1 DYSURIA 11/18/2016 NICO PATEL DO Ot 724.5 BACKACHE NOS 11/18/2016 VELMA LEOS, REJI Dill Ot 599.70 HEMATURIA, UNSPECIFIED 11/18/2016 SUSY VELA MD Ot 715.36 LOC OSTEOARTH NOS-L/LEG 11/18/2016 SUSY VELA MD Ot V72.63 PRE-PROCEDURAL LABORATORY EXAMINATION 11/18/2016 SUSY VELA MD Ot V72.81 LYYP-ISK-WCDKWTRGL CARDIOVASCULAR 11/18/2016 SUSY VELA MD Ot V72.83 EXAM PRE-OPERATIVE NEC 11/18/2016 SUSY VELA MD Ot V72.84 EXAM PRE-OPERATIVE NOS 11/18/2016 SUSY VELA MD Ot V74.8 SCREEN-BACTERIAL DIS NEC 11/18/2016 AUGUSTA FUNK MD Ot 070.70 UNSPECIFIED VIRAL HEPATITIS C WITHOUT HE 11/18/2016 AUGUSTA FUNK MD Ot 571.5 CIRRHOSIS OF LIVER NOS 11/18/2016 SUSY VELA MD Ot 599.0 URIN TRACT INFECTION NOS 11/18/2016 SUSY VELA MD Ot 715.36 LOC OSTEOARTH NOS-L/LEG 11/18/2016 SUSY VELA MD Ot 780.79 OTH MALAISE FATIGUE 11/18/2016 SUSY VELA MD Ot V72.63 PRE-PROCEDURAL LABORATORY EXAMINATION 11/18/2016 SUSY VELA MD Ot V74.8 SCREEN-BACTERIAL DIS NEC 11/18/2016 NICO PATEL DO Ot 599.0 URIN TRACT INFECTION NOS 11/18/2016 SUSY VELA MD Ot 354.0 CARPAL TUNNEL SYNDROME 11/18/2016 SUSY VELA MD, Ot V72.84 EXAM PRE-OPERATIVE NOS 11/18/2016 SUSY VELA MD, Ot V74.8 SCREEN-BACTERIAL DIS NEC 11/18/2016 REJI CARREON MD, Ot N32.81 OVERACTIVE BLADDER 11/18/2016 REJI CARREON MD, Ot N36.42 INTRINSIC SPHINCTER DEFICIENCY (ISD) 11/18/2016 REJI CARREON MD, Ot N39.46 MIXED INCONTINENCE 11/18/2016 REJI CARREON MD, Ot Z01.818 ENCOUNTER FOR OTHER PREPROCEDURAL EXAMIN 11/18/2016 NICO PATEL DO, Ot Z12.31 ENCNTR SCREEN MAMMOGRAM FOR MALIGNANT NE 11/18/2016 CHLOE RODRIGUEZ MD, Ot D64.9 ANEMIA, UNSPECIFIED 11/18/2016 CHLOE RODRIGUEZ MD, Ot N39.3 STRESS INCONTINENCE (FEMALE) (MALE) 11/18/2016 CHLOE RODRIGUEZ MD, Ot N81.6 RECTOCELE 11/18/2016 CHLOE RODRIGUEZ MD, Ot Z01.818 ENCOUNTER FOR OTHER PREPROCEDURAL EXAMIN 11/18/2016 NICO PATEL DO, Ot I89.0 LYMPHEDEMA, NOT ELSEWHERE CLASSIFIED 11/18/2016 NICO PATEL DO, Ot I89.0 LYMPHEDEMA, NOT ELSEWHERE CLASSIFIED 11/23/2016 NICO PATEL DO, Ot I89.0 LYMPHEDEMA, NOT ELSEWHERE CLASSIFIED 11/23/2016 NICO PATEL DO, Ot I89.0 LYMPHEDEMA, NOT ELSEWHERE CLASSIFIED 11/24/2016 NICO PATEL DO J Ot I51.7 CARDIOMEGALY 11/24/2016 NICO PATEL DO Ot I89.0 LYMPHEDEMA, NOT ELSEWHERE CLASSIFIED 11/24/2016 NICO PATEL DO Ot M79.89 OTHER SPECIFIED SOFT TISSUE DISORDERS 11/26/2016 NICO PATEL DO Ot I51.7 CARDIOMEGALY 11/26/2016 NICO PATEL DO Ot I89.0 LYMPHEDEMA, NOT ELSEWHERE CLASSIFIED 11/26/2016 NICO PATEL DO Ot M79.89 OTHER SPECIFIED SOFT TISSUE DISORDERS 11/26/2016 NICO PATEL DO Ot I51.7 CARDIOMEGALY 11/26/2016 PATELNICO LEDESMA DO Ot I89.0 LYMPHEDEMA, NOT ELSEWHERE CLASSIFIED 11/26/2016 NICO PATEL DO Ot M79.89 OTHER SPECIFIED SOFT TISSUE DISORDERS 11/26/2016 NICO PATEL DO Ot I51.7 CARDIOMEGALY 11/26/2016 NICO PATEL DO Ot I89.0 LYMPHEDEMA, NOT ELSEWHERE CLASSIFIED 11/26/2016 NICO PATEL DO Ot M79.89 OTHER SPECIFIED SOFT TISSUE DISORDERS 11/26/2016 NICO PATEL DO Ot I51.7 CARDIOMEGALY 11/26/2016 NICO PATEL DO Ot I89.0 LYMPHEDEMA, NOT ELSEWHERE CLASSIFIED 11/26/2016 NICO PATEL DO Ot M79.89 OTHER SPECIFIED SOFT TISSUE DISORDERS 11/26/2016 NICO PATEL DO Ot I51.7 CARDIOMEGALY 11/26/2016 NICO PATEL DO Ot I89.0 LYMPHEDEMA, NOT ELSEWHERE CLASSIFIED 11/26/2016 NICO PATEL DO Ot M79.89 OTHER SPECIFIED SOFT TISSUE DISORDERS 12/14/2016 JORGE DONICO Ot I51.7 CARDIOMEGALY 12/14/2016 JORGE DONICO Ot I89.0 LYMPHEDEMA, NOT ELSEWHERE CLASSIFIED 12/14/2016 NICO PATEL DO Ot M79.89 OTHER SPECIFIED SOFT TISSUE DISORDERS 12/22/2016 JORGE DONICO Ot I51.7 CARDIOMEGALY 12/22/2016 PATELNICO VIVAR DO Ot I89.0 LYMPHEDEMA, NOT ELSEWHERE CLASSIFIED 12/22/2016 NICO PATEL DO, Ot M79.89 OTHER SPECIFIED SOFT TISSUE DISORDERS 12/25/2016 CRUZ LEOS, OLIVIA Saldana Ot 724.2 LUMBAGO 12/25/2016 OLIVIA ARROYO MD Ot 724.3 SCIATICA 03/04/2017 NICO PATEL DO, Ot Z51.81 ENCOUNTER FOR THERAPEUTIC DRUG LEVEL MON 03/04/2017 NICO PATEL DO, Ot Z79.899 OTHER PENITENTIARY (CURRENT) DRUG THERAPY 03/04/2017 NICO PATEL DO, Ot Z51.81 ENCOUNTER FOR THERAPEUTIC DRUG LEVEL MON 03/04/2017 NICO PATEL DO, Ot Z79.899 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 SOFTWARE TECHNICIAN (CURRENT) DRUG THERAPY 04/05/2017 NICO PATEL DO, Ot Z51.81 ENCOUNTER FOR THERAPEUTIC DRUG LEVEL MON 04/05/2017 NICO PATEL DO, Ot Z79.899 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 SOFTWARE TECHNICIAN (CURRENT) DRUG THERAPY 04/06/2017 NICO PATEL DO, Ot Z51.81 ENCOUNTER FOR THERAPEUTIC DRUG LEVEL MON 04/06/2017 NICO PATEL DO, Ot Z79.899 OTHER PENITENTIARY (CURRENT) DRUG THERAPY 04/19/2017 NICO PATEL DO, Ot B19.20 UNSPECIFIED VIRAL HEPATITIS C WITHOUT HE 05/10/2017 NICO PATEL DO, Ot B19.20 UNSPECIFIED VIRAL HEPATITIS C WITHOUT HE 05/23/2017 NICO PATEL DO, Ot B19.20 UNSPECIFIED VIRAL HEPATITIS C WITHOUT HE 06/30/2017 Shiraz, Bakari W 780.1 HALLUCINATIONS 06/30/2017 Shiraz, Bakari W R44.3 HALLUCINATIONS, UNSPECIFIED 06/30/2017 Shiraz, Bakari W 780.1 HALLUCINATIONS 06/30/2017 Shiraz, Bakari W R44.3 HALLUCINATIONS, UNSPECIFIED 07/06/2017 Shiraz, Bakari A 296.34 07/06/2017 Shiraz, Bakari W 332.0 07/06/2017 Shiraz, Bakari W 368.16 07/06/2017 Shiraz, Bakari W 428.20 UNSPECIFIED SYSTOLIC HEART FAILURE 07/06/2017 Shiraz Bakari W 530.81 07/06/2017 Shiraz, Bakari W 564.1 07/06/2017 Bakari Weldon W 780.1 HALLUCINATIONS 07/06/2017 Eduar Weldonb A F33.3 MAJOR DEPRESSV DISORDER, RECURRENT, SEVERE W PSYCH SYMPTOMS 07/06/2017 Eduar Weldonb W G20 PARKINSON'S DISEASE 07/06/2017 Bakari Weldon W I50.20 UNSPECIFIED SYSTOLIC (CONGESTIVE) HEART FAILURE 07/06/2017 Bakari Weldon W K21.9 GASTRO-ESOPHAGEAL REFLUX DISEASE WITHOUT ESOPHAGITIS 07/06/2017 Bakari Weldon W K58.1 IRRITABLE BOWEL SYNDROME WITH CONSTIPATION 07/06/2017 Bakari Weldon W R44.1 VISUAL HALLUCINATIONS 07/06/2017 Eduar Weldonb W R44.3 HALLUCINATIONS, UNSPECIFIED 07/06/2017 Bakari Weldon W V12.09 OTHER PERSONAL HISTORY OF INFECTIOUS AND PARASITIC DISEASE 07/06/2017 Bakari Weldon W Z86.19 PERSONAL HISTORY OF OTHER INFECTIOUS AND PARASITIC DISEASES 08/26/2017 Neel Leon 296.32 MAJOR DEPRESSIVE DISORDER, RECURRENT EPISODE, MODERATE DEGREE 08/26/2017 Neel Leon F33.1 MAJOR DEPRESSIVE DISORDER, RECURRENT, MODERATE Procedures Code Description Performed By Performed On 86.04 OTHER SKIN SUBQ I D 09/06/2011 81.54 TOTAL KNEE REPLACEMENT 01/02/2014 Results Test Result Range Hemoglobin A1C - 06/30/17 16:19 % A1C 5.40 % 5.40-6.60 AvGlu 113 mg/dL 70-110 MRSA Screen - 06/30/17 16:19 FINAL CULTURE RESULTS MRSA Negative Nasal Culture Lipid Panel - 07/01/17 05:00 C/HDL 4.0 3.7-6.7 Cholesterol 174 mg/dL 100-240 HDL 44 mg/dL 30-85 LDL-Calculated 117 mg/dL 0-100 Trig 67 mg/dL 35-160 VLDL 13 mg/dL 0-42 Encounters ACCT No. Visit Date/Time Discharge Status Pt. Type Provider Facility Loc./Unit Complaint [id number] 09/01/2012 08:48:00 09/01/2012 23:59:59 CLS Outpatient [id number] 08/03/2012 11:49:00 08/03/2012 23:59:59 CLS Outpatient [id number] 04/18/2017 07:48:00 04/18/2017 23:59:59 CLS Outpatient JORGE PRYOR NICO Porsche [facility] RAD HEPATITIS C [id number] 03/03/2017 13:29:00 03/03/2017 23:59:59 CLS Outpatient PATEL DONICO Porsche [facility] CARD MED MONITORING [id number] 11/18/2016 14:31:00 11/18/2016 23:59:59 CLS Outpatient PATEL DONICO Porsche [facility] RAD LT U/E LYMPHEDEMA [id number] 08/29/2015 10:37:00 09/01/2015 12:00:00 DIS Inpatient PEREAJOHNNA PRYOR RONNY [facility] 4TH SWB [id number] 08/25/2015 01:48:00 08/29/2015 10:20:00 DIS Inpatient PEREAJOHNNA PRYOR RONNY [facility] 4TH PNEUMONIA [id number] 08/11/2015 06:23:00 08/12/2015 15:15:00 DIS Outpatient CHLOE RODRIGUEZ MD [facility] RECTOCELE [id number] 08/05/2015 09:06:00 08/05/2015 23:59:59 CLS Outpatient CHLOE RODRIGUEZ MD [facility] PREOP RECTOCELE [id number] 07/15/2015 14:26:00 07/15/2015 23:59:59 CLS Outpatient NICO PATEL DO [facility] RAD SCREENING [id number] 05/09/2015 06:08:00 05/09/2015 09:52:00 DIS Outpatient REJI CARREON MD [facility] INCONTINENCE [id number] 04/30/2015 12:06:00 04/30/2015 23:59:59 CLS Outpatient REJI CARREON MD [facility] PREOP INCONTINENCE [id number] 01/29/2015 08:26:00 01/29/2015 11:50:00 DIS Outpatient SUSY VELA MD [facility] RIGHT CARPAL TUNNEL SYNDROME [id number] 01/27/2015 09:44:00 01/27/2015 23:59:59 CLS Outpatient SUSY VELA MD [facility] PREOP RIGHT CARPAL TUNNEL SYNDROME [id number] 06/24/2014 18:30:00 06/24/2014 23:59:59 CLS Outpatient NICO PATEL DO [facility] MSL UTI [id number] 01/04/2014 10:56:00 01/16/2014 11:42:00 DIS Inpatient NING QUINTERO MD [facility] IRF LEFT KNEE OSTEOARTHRITIS [id number] 01/02/2014 06:00:00 01/04/2014 10:56:00 DIS Inpatient SUSY VELA MD [facility] SURGICAL LEFT KNEE OSTEOARTHRITIS [id number] 12/24/2013 08:11:00 12/24/2013 23:59:59 CLS Outpatient SUSY VELA MD [facility] PREOP LEFT KNEE OSTEOARTHRITIS [id number] 12/13/2013 09:15:00 12/13/2013 23:59:59 CLS Outpatient AUGUSTA FUNK MD [facility] RAD HEP C [id number] 12/06/2013 09:59:00 12/06/2013 23:59:59 CLS Outpatient SUSY VELA MD [facility] LAB CHRONIC UTI [id number] 11/05/2013 09:49:00 11/05/2013 23:59:59 CLS Outpatient SUSY VELA MD [facility] PREOP LEFT KNEE SEVERE OSTEOARTHRITIS [id number] 09/18/2013 13:16:00 09/18/2013 23:59:59 CLS Outpatient REJI CARREON MD [facility] RAD HEMATURIA [id number] 06/10/2013 09:42:00 06/10/2013 12:15:00 DIS Emergency OLIVIA ARROYO MD [facility] ER R SIDE BACK PAIN FALL [id number] 03/20/2013 18:21:00 03/23/2013 17:15:00 DIS Inpatient NICO PATEL DO [facility] 4TH PARKINSONS/RECURRENT FALLING [id number] 01/05/2013 08:28:00 01/05/2013 23:59:59 CLS Outpatient NICO PATEL DO [facility] RAD EPIDURAL PAIN [id number] 12/08/2012 16:47:00 12/08/2012 23:59:59 CLS Outpatient NICO PATEL DO [facility] MLF DYSURIA [id number] 11/17/2012 15:46:00 11/29/2012 15:40:00 DIS Inpatient LEON LEOS, NING Riley [facility] IRF PARKINSONS [id number] 11/14/2012 08:47:00 11/28/2012 11:22:00 DIS Outpatient ANA MENDIOLA [facility] REHAB L SI DYSFUNCTION, PIRIFORMIS,PARKINSONS [id number] 11/17/2012 08:20:00 11/17/2012 10:16:00 DIS Outpatient OLIVIA ARROYO MD [facility] ER LOW BACK PAIN [id number] 11/16/2012 23:23:00 11/17/2012 01:40:00 DIS Emergency BRIAN CACERES MD [facility] ER OUT OF MEDS,BACK PAIN [id number] 11/10/2012 10:00:00 11/15/2012 08:50:00 DIS Outpatient NICO PATEL DO [facility] REHAB PARKINSONS DISEASE [id number] 11/11/2012 17:27:00 11/11/2012 17:46:00 DIS Emergency JERMAINE DAVIS DO [facility] ER BACK PAIN [id number] 11/11/2012 13:11:00 11/11/2012 14:01:00 DIS Emergency JERMAINE DAVIS DO [facility] ER LEG/BACK PAIN [id number] 11/07/2012 03:09:00 11/07/2012 06:19:00 DIS Emergency BRIAN CACERES MD [facility] ER BACK PAIN [id number] 10/29/2012 16:16:00 10/29/2012 18:32:00 DIS Emergency JERMAINE DAVIS DO [facility] ER BACK PAIN [id number] 01/27/2015 09:45:00 Document Registration [id number] 01/27/2015 09:44:00 Document Registration [id number] 01/27/2015 09:44:00 Document Registration [id number] 01/27/2015 09:44:00 Document Registration [id number] 09/18/2012 13:12:00 Document Registration [id number] 09/18/2012 13:07:00 Document Registration [id number] 07/30/2012 09:04:00 Document Registration [id number] 05/31/2012 09:55:00 Document Registration [id number] 01/08/2012 13:32:00 Document Registration [id number] 12/28/2011 10:32:00 Document Registration [id number] 09/03/2011 22:25:00 Document Registration [id number] 08/04/2011 18:11:00 Document Registration [id number] 03/19/2011 11:00:00 Document Registration [id number] 07/21/2010 14:24:00 Document Registration [id number] 06/30/2010 10:43:00 Document Registration [id number] 02/26/2010 12:50:00 Document Registration [id number] 10/31/2009 11:31:00 Document Registration [id number] 10/16/2009 08:18:00 Document Registration [id number] 09/01/2009 14:59:00 Document Registration [id number] 05/26/2018 09:37:00 05/26/2018 23:59:00 DIS Outpatient NICO PATEL [id number] 07/14/2017 09:39:00 08/26/2017 13:47:00 DIS Outpatient Neel Leon [id number] 06/30/2017 16:14:00 07/06/2017 13:15:00 DIS Inpatient Bkaari Weldon [facility] DARRELL [id number] 06/30/2017 17:26:17 Document Registration
[2018-10-24 16:31] LABS: BASOPHILS % (AUTO) 0 % (0-10); EOSINOPHILS # (AUTO) 0.3 10^3/uL (0.0-0.3); EOSINOPHILS % (AUTO) 5 % (0-10); HEMATOCRIT 41 % (35-52); HEMOGLOBIN 13.3 G/DL (11.5-16.0); LYMPHOCYTES # (AUTO) 1.8 X 10^3 (1.0-4.0); LYMPHOCYTES % (AUTO) 31 % (12-44); MEAN CORPUSCULAR HEMOGLOBIN 31 PG (25-34); MEAN CORPUSCULAR HGB CONC 33 G/DL (32-36); MEAN CORPUSCULAR VOLUME 95 FL (80-99); MEAN PLATELET VOLUME 9.7 FL (7.4-10.4); MONOCYTES # (AUTO) 0.5 X 10^3 (0.0-1.0); MONOCYTES % (AUTO) 8 % (0-12); NEUTROPHILS # (AUTO) 3.3 X 10^3 (1.8-7.8); NEUTROPHILS % (AUTO) 56 % (42-75); PLATELET COUNT 118 10^3/uL (130-400); RED CELL DISTRIBUTION WIDTH 13.5 % (10.0-14.5); WHITE BLOOD COUNT 5.9 10^3/uL (4.3-11.0)
[2018-10-24 16:38] LABS: BILIRUBIN,URINE NEGATIVE (NEGATIVE); CLARITY,URINE CLEAR; COLOR,URINE YELLOW; GLUCOSE, URINE (UA) NEGATIVE (NEGATIVE); KETONES,URINE 1+ (NEGATIVE); LEUKOCYTE ESTERASE ,URINE 3+ (NEGATIVE); NITRITE,URINE NEGATIVE (NEGATIVE); PH,URINE 6.5 (5-9); PROTEIN,URINE NEGATIVE (NEGATIVE); UROBILINOGEN,URINE 1 MG/DL (NORMAL)
[2018-10-24 16:51] LABS: ALANINE AMINOTRANSFERASE 10 U/L (0-55); ALBUMIN 3.9 GM/DL (3.2-4.5); ALKALINE PHOSPHATASE 81 U/L (40-136); BILIRUBIN,TOTAL 0.2 MG/DL (0.1-1.0); BUN/CREATININE RATIO 25; CALCIUM 9.6 MG/DL (8.5-10.1); CARBON DIOXIDE 25 MMOL/L (21-32); CHLORIDE 103 MMOL/L (98-107); CREATININE SERUM 0.83 MG/DL (0.60-1.30); GFR ESTIMATED > 60; GLUCOSE 96 MG/DL (70-105); POTASSIUM 4.2 MMOL/L (3.6-5.0); SODIUM 141 MMOL/L (135-145); TOTAL PROTEIN 6.6 GM/DL (6.4-8.2)
[2018-10-24 16:54] LABS: BACTERIA,URINE MODERATE /HPF; RBC,URINE RARE /HPF; WBC,URINE 25-50 /HPF
[2018-10-24 16:55] LABS: AMORPHOUS SEDIMENT,UR RARE AMOR URATES /LPF
--- NOTE | 2018-10-24 17:04 | Diagnostic Imaging Report ---
PROCEDURE: CT lumbar spine without contrast. TECHNIQUE: Multiple contiguous axial images were obtained through the lumbar spine without the use of intravenous contrast. Sagittal and coronal reformations were then performed. Auto Exposure Controls were utilized during the CT exam to meet ALARA standards for radiation dose reduction. INDICATION: Low back pain. COMPARISON: Lumbar spine CT without contrast 11/22/2012. FINDINGS: There are 5 lumbar type vertebral bodies. Vertebral body heights preserved. No fractures. There are advanced diffuse degenerative endplate changes which have progressed since prior exam. This has resulted in fusion of the L5 and S1 segments. Disc space height and osteophyte formation results in advanced bilateral neural foraminal narrowing at L3-S1 bilaterally. There is mild to moderate bilateral neural foraminal narrowing bilaterally at T12-L3. Posterior disc osteophyte complex, facet arthropathy, and ligamentous hypertrophy appear to result in at least mild, possibly moderate spinal canal narrowing at L4-L5. No other high-grade spinal canal narrowing is evident on this non intrathecal contrast exam. Mild atherosclerotic calcifications. The visualized paravertebral soft tissues are otherwise unremarkable. IMPRESSION: 1. There are advanced degenerative endplate changes multilevel high-grade neural foraminal narrowing as above. 2. There is likely high-grade spinal canal narrowing at L4-L5. This can be better evaluated with CT myelogram or MRI. 3. No acute CT findings in the lumbar spine. Dictated by: Dictated on workstation # [id number]
[2018-10-24] MEDS ORDERED: CEFU250T80 PO (17:10)
[2018-10-24] MEDS ORDERED: OXYC-471 PO (17:10)
[2018-10-24] MEDS ORDERED: PRD20T PO (17:10)
[2018-10-24] MEDS ORDERED: fentaNYL INJECTION 100 MCG/2 ML AMP IVP PRN (17:15)
[2018-10-24] MEDS ORDERED: KETOROLAC 30 MG/ML VIAL IVP ONE (17:15)
[2018-10-24 17:33] VITALS: BP 126/74
== END 2018-10-24 17:33 | disposition home or self-care (01) ==
LOC: EDUNIT# 14:58 → ER 14:59
DX: M48.061 Spinal stenosis, lumbar region without neurogenic claudication (principal); M54.16 Radiculopathy, lumbar region; K21.9 Gastro-esophageal reflux disease without esophagitis; F41.9 Anxiety disorder, unspecified; F32.9 Major depressive disorder, single episode, unspecified; Z79.52 Long term (current) use of systemic steroids; Z87.440 Personal history of urinary (tract) infections; Z87.19 Personal history of other diseases of the digestive system; Z80.3 Family history of malignant neoplasm of breast
CPT/HCPCS: 36415; 71045; 72131; 80053; 81000; 85025; 87077; 87088; 96374; 96375

== ENCOUNTER → 2018-11-22 | Outpatient (CLI) | payer MEDICARE, MEDICAID ==
[~2018-11-22] MED LIST changes: +CEFU250T80 PO; +OXYC-471 PO; +PRD20T PO
--- NOTE | 2018-11-22 12:17 | Diagnostic Imaging Report ---
PROCEDURE: CT head without contrast. TECHNIQUE: Multiple contiguous axial images were obtained through the brain without the use of intravenous contrast. Auto Exposure Controls were utilized during the CT exam to meet ALARA standards for radiation dose reduction. INDICATION: Headache Ventricles and sulci are within normal limits for size. There is questionable low-density in the right basal ganglia with mild low-density seen within the insula bilaterally. No hemorrhage is identified. There is no evidence of territorial infarct. Calvarium is intact and visualized paranasal sinuses are clear. IMPRESSION: No acute abnormalities detected. There is questionable low-density within the basal ganglia and insula of each hemisphere. This may be related to chronic microvascular ischemia.. If symptoms persist, consideration could be given to MRI. Dictated by: Dictated on workstation # [id number]
== END ==
LOC: RAD 11:40
PROVIDERS: ATTEND Internal Medicine
DX: R51 Headache (principal)
CPT/HCPCS: 70450

== ENCOUNTER 2021-08-03 10:11 | Emergency (ER) | payer MEDICARE, MEDICAID ==
[~2021-08-03] VITALS: Ht 162.5 cm; Wt 111.8 kg
[~2021-08-03 10:11] MED LIST changes: -LACT10SO PO; +LACT10SO3 PO; -LISI10TA2 PO; +LISI10TA25 PO; -OXYC-471 PO; +OXYC1TAB11 PO
[2021-08-03 10:24] VITALS: BP 104/70
--- NOTE | 2021-08-03 11:11 | ED Abdominal Pain ---
General Chief Complaint: Abdominal/GI Problems Stated Complaint: VOMITING Nursing Triage Note: TO ED PER W/C FROM [facility] STAFF REPORT PATIENT HAD COFFEE GROUND EMESIS TODAY. PATIENT ALERT ON ADMIT. Source of Information: Caregiver Exam Limitations: Physical Impairments History of Present Illness Date Seen by Provider: Aug 03, 2021 Time Seen by Provider: 11:00 Initial Comments This is a 75-year-old intellectually disabled ad ult who presented to the ER via correction van. Was brought over for episode of coffee-ground emesis that occurred this morning. Caregiver states that she has been her norm up until this morning when she vomited. No fever, chills, cough, shortness of breath. Does not take any anticoagulants or antiplatelets per MAR. She is denying abdominal pain at this time. Allergies and Home Medications Allergies Coded Allergies: No Known Drug Allergies (Verified , 09/04/11) Patient Home Medication List Home Medication List Reviewed: Yes Acetaminophen (Tylenol Extra Strength) 500 Mg Tablet, 1,000 MG PO Q6H PRN for PAIN, (Reported) Entered as Reported by: RAFAEL JORDAN on 08/25/15 0911 Albuterol Sulfate (Albuterol Sulfate) 2.5 Mg/3 Ml Vial.neb, 2.5 MG IH Q6H PRN for SHORTNESS OF BREATH, (Reported) Entered as Reported by: SUMIT VINCENT on 08/05/15 0940 Amantadine Hcl (Amantadine) 100 Mg Tablet, 100 MG PO DAILY, (Reported) Entered as Reported by: SUMIT VINCENT on 01/27/15 1057 Calcium Carbonate/Vitamin D3 (Omkar-600 W/Vit D Tablet) 1 Tab Tablet, 1 TAB PO DAILY, (Reported) Entered as Reported by: BRIE CAMACHO on 02/18/10 1729 Carbidopa/Levodopa (Carbidopa-Levo 25-250 Tab) 1 Each Tablet, 1 TAB PO SIX TIMES DAILY, (Reported) Entered as Reported by: SUMIT VINCENT on 01/27/15 1057 Cefuroxime Axetil (Cefuroxime) 250 Mg Tablet, 250 MG PO BID Prescribed by: LATASHA GOFF on 10/24/18 1710 Citalopram Hydrobromide (Citalopram Hbr) 10 Mg Tablet, 10 MG PO HS, (Reported) Entered as Reported by: SUMIT VINCENT on 01/27/15 1057 Cyclobenzaprine Hcl (Cyclobenzaprine Hcl) 10 Mg Tablet, 10 MG PO BID, (Reported) Entered as Reported by: BELLO OWENS on 11/17/12 1844 Docusate Sodium (Colace) 100 Mg Capsule, 100 MG PO DAILY PRN for CONSTIPATION, (Reported) Entered as Reported by: RAFAEL JORDAN on 08/25/15 09 Duloxetine Hcl (Cymbalta) 60 Mg Capsule.dr, 60 MG PO EVERY OTHER DAY, (Reported) Entered as Reported by: SUMIT VINCENT on 01/27/15 105 Duloxetine Hcl (Cymbalta Capsule) 30 Mg Cap, 30 MG PO EVERY OTHER DAY, (Reported) Entered as Reported by: SUMIT VINCENT on 01/27/15 105 Estrogens Conjugated (Premarin) 30 Gm Cr, 0.3 APPFUL VG 1-2 TIMES WEEKLY PRN for PAIN, (Reported) Entered as Reported by: RAFAEL JORDAN on 08/25/15 09 Hydrocodone Bit/Acetaminophen (Lortab 7.5 Mg Tablet) 1 Each Tablet, 1 TAB PO Q4H PRN for PAIN Prescribed by: RONNY PEREA on 09/01/15 0858 Hypromellose (Systane Gel) 10 Gm Gel..gram., 1 DROP OU HS, (Reported) Entered as Reported by: SUMIT VICNENT on 08/05/15 0944 Lactobacillus Combination No.4 (Probiotic) 1 Each Capsule, 1 CAP PO AC, (Reported) Entered as Reported by: SUMIT VINCENT on 01/27/15 1100 Lactulose (Lactulose) 10 Gm/15 Ml Solution, 10 GM PO Q12H PRN for CONSTIPATION, (Reported) Entered as Reported by: JONH MINAYA on 04/30/15 1347 Lisinopril (Lisinopril) 10 Mg Tablet, 10 MG PO DAILY Prescribed by: RONNY PEREA on 09/01/15 0858 Loperamide HCl (Imodium A-D) 2 Mg Tablet, 2 MG PO Q6H PRN for DIARRHEA, (Reported) Entered as Reported by: RAFAEL JORDAN on 08/25/15 09 Lorazepam (Ativan) 0.5 Mg Tablet, 0.5 MG PO BID, (Reported) Entered as Reported by: SUMIT VINCENT on 01/27/15 1057 Lorazepam (Lorazepam) 0.5 Mg Tablet, 0.5 MG PO BID Prescribed by: RONNY PEREA on 09/01/15 0858 Mirabegron (Myrbetriq) 50 Mg Tab.er.24h, 50 MG PO DAILY, (Reported) Entered as Reported by: SUMIT VINCENT on 01/27/15 1100 Multivitamins (Multiple Vitamin) 1 Tab Tablet, 1 TAB PO DAILY, (Reported) Entered as Reported by: CONRADO ROSALES on 06/26/09 0241 Ondansetron (Ondansetron Odt) 4 Mg Tab.rapdis, 4 MG PO Q6H PRN for NAUSEA/VOMITING-1ST LINE Prescribed by: TAYLOR MADDOX on 08/03/21 1153 Oxycodone HCl/Acetaminophen (Oxycodone-Acetaminophen 5-325) 1 Each Tablet, 1 EACH PO Q4H PRN for PAIN-MODERATE Prescribed by: LATASHA GOFF on 10/24/18 1710 Pantoprazole Sodium (Pantoprazole Sodium) 40 Mg Tablet.dr, 40 MG PO DAILY Prescribed by: TAYLOR MADDOX on 08/03/21 1153 Pramipexole Di-Hcl (Mirapex) 1.5 Mg Tablet, 1.5 MG PO BID, (Reported) Entered as Reported by: POPEYE BARRIOS on 11/29/12 1012 Prednisone (Prednisone) 10 Mg Tab, 10 MG PO DAILY Prescribed by: RONNY PEREA on 09/01/15 0858 Prednisone (Prednisone) 20 Mg Tab, 40 MG PO DAILY Prescribed by: LATASHA GOFF on 10/24/18 1710 Propylene Glycol (Systane Balance) 10 Ml Drops, 1 DROP OU TID, (Reported) Entered as Reported by: SUMIT VINCENT on 08/05/15 0944 Simethicone (Simethicone) 125 Mg Capsule, 125 MG PO TID, (Reported) Entered as Reported by: SUMIT VINCENT on 01/27/15 1057 Trimethoprim (Trimethoprim) 100 Mg Tablet, 100 MG PO HS, (Reported) Entered as Reported by: SUMIT VINCENT on 01/27/15 1100 Review of Systems Review of Systems Constitutional: see HPI EENTM: No Symptoms Reported Respiratory: No Symptoms Reported Cardiovascular: No Symptoms Reported Gastrointestinal: See HPI Genitourinary: No Symptoms Reported Musculoskeletal: no symptoms reported Skin: no symptoms reported Psychiatric/Neurological: No Symptoms Reported Endocrine: No Symptoms Reported Hematologic/Lymphatic: No Symptoms Reported Past Sztvbaq-Wnybxi-Ugxogq Hx Patient Social History Tobacco Use?: No Substance use?: No Immunizations Up To Date Tetanus Booster (TDap): Unknown PED Vaccines UTD: No First/Initial COVID19 Vaccinat: JUL 04 Second COVID19 Vaccination Greg: JUL 22 Seasonal Allergies Seasonal Allergies: No Past Medical History Surgeries: Yes (MMK (Bladder lift), CATARACTS, left tkr, CARPAL TUNNEL) Respiratory: No (FREQUENT COLDS-LINKED TO PARKINSONS) Cardiac: Yes (SYSTOLIC/DIASTOLIC CONGESTIVE HF) Neurological: Yes Parkinson's Disease Reproductive Disorders: No Female 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 History: Menopausal Sexually Transmitted Disease: No HIV/AIDS: No Genitourinary: Yes Neurogenic Bladder, UTI-Chronic Gastrointestinal: Yes (HEP C) Gastroesophageal Reflux, Liver Disease/Jaundice, Hepatitis, Cirrhosis Musculoskeletal: Yes (BONE SPURS, DETERIORATED BONES IN SPINE, INJECTIONS, OSTEOARTHRITIS' LYMPHE) Arthritis Endocrine: No Cataract Loss of Vision: Denies Hearing Impairment: Denies Cancer: No Psychosocial: Yes (PSYCHOTIC DISORDER) Sleep Difficulties, Anxiety, Depression Integumentary: Yes (HX OF CELLULITITS IN LEGS ) Blood Disorders: Yes (HEP C) Adverse Reaction/Blood Tranf: No Family Medical History Alcoholism 19 FATHER Cancer G8 SISTER (BREAST) Dementia 19 MOTHER Family history: Arthritis 19 MOTHER Family history: Diabetes mellitus 19 MOTHER No Family History of: Abdominal aortic aneurysm Congenital heart disease Family history: Alzheimer's disease Family history: Asthma Family history: Cardiovascular disease Family history: Gastrointestinal disease Family history: Hypertension Family history: Thyroid disorder Hereditary disease History of - anemia Myocardial infarction Parkinson's disease Prostate cancer Psychotic disorder Seizure disorder Stroke No Pertinent Family Hx Physical Exam Vital Signs Vital Signs - First Documented 08/03/21 10:24 Temp 37.2 Pulse 100 Resp 18 B/P (MAP) 104/70 (81) Pulse Ox 91 O2 Delivery Room Air Capillary Refill : Height/Weight/BMI Height: 5'2.00" Weight: 220lbs. 16.0oz. 99.060298xg; 42.00 BMI Method:Estimated General Appearance: WD/WN, no apparent distress HEENT: normal ENT inspection, pharynx normal Neck: non-tender, supple Respiratory: no respiratory distress, no accessory muscle use, decreased breath sounds Cardiovascular: regular rate, rhythm, no murmur Gastrointestinal: normal bowel sounds, non tender, soft Extremities: normal range of motion, normal inspection Neurologic/Psychiatric: alert, normal mood/affect (at baseline per caregiver ) Skin: normal color, warm/dry Progress/Results/Core Measures Results/Orders Lab Results Laboratory Tests Test 08/03/21 10:23 Range/Units White Blood Count 7.3 4.3-11.0 10^3/uL Red Blood Count 4.55 3.80-5.11 10^6/uL Hemoglobin 13.5 11.5-16.0 g/dL Hematocrit 43 35-52 % Mean Corpuscular Volume 94 80-99 fL Mean Corpuscular Hemoglobin 30 25-34 pg Mean Corpuscular Hemoglobin Concent 32 32-36 g/dL Red Cell Distribution Width 14.5 10.0-14.5 % Platelet Count 160 130-400 10^3/uL Mean Platelet Volume 10.3 9.0-12.2 fL Immature Granulocyte % (Auto) 0 % Neutrophils (%) (Auto) 87 H 42-75 % Lymphocytes (%) (Auto) 9 L 12-44 % Monocytes (%) (Auto) 4 0-12 % Eosinophils (%) (Auto) 0 0-10 % Basophils (%) (Auto) 0 0-10 % Neutrophils # (Auto) 6.3 1.8-7.8 10^3/uL Lymphocytes # (Auto) 0.7 L 1.0-4.0 10^3/uL Monocytes # (Auto) 0.3 0.0-1.0 10^3/uL Eosinophils # (Auto) 0.0 0.0-0.3 10^3/uL Basophils # (Auto) 0.0 0.0-0.1 10^3/uL Immature Granulocyte # (Auto) 0.0 0.0-0.1 10^3/uL Neutrophils % (Manual) 82 % Lymphocytes % (Manual) 11 % Monocytes % (Manual) 6 % Eosinophils % (Manual) 0 % Basophils % (Manual) 0 % Band Neutrophils 1 % Blood Morphology Comment NORMAL Sodium Level 141 135-145 MMOL/L Potassium Level 4.0 3.6-5.0 MMOL/L Chloride Level 101 98-107 MMOL/L Carbon Dioxide Level 29 21-32 MMOL/L Anion Gap 11 5-14 MMOL/L Blood Urea Nitrogen 26 H 7-18 MG/DL Creatinine 0.70 0.60-1.30 MG/DL Estimat Glomerular Filtration Rate 91 BUN/Creatinine Ratio 37 Glucose Level 158 H 70-105 MG/DL Calcium Level 9.6 8.5-10.1 MG/DL Corrected Calcium 9.9 8.5-10.1 MG/DL Total Bilirubin 0.3 0.1-1.0 MG/DL Aspartate Amino Transf (AST/SGOT) 11 5-34 U/L Alanine Aminotransferase (ALT/SGPT) 7 0-55 U/L Alkaline Phosphatase 74 40-136 U/L C-Reactive Protein High Sensitivity 1.96 H 0.00-0.50 MG/DL Total Protein 6.6 6.4-8.2 GM/DL Albumin 3.6 3.2-4.5 GM/DL My Orders Orders - TAYLOR MADDOX SENIOR WEB ARCHITECT Cbc With Automated Diff (08/03/21 11:06) Comprehensive Metabolic Panel (08/03/21 11:06) Chest 1 View, Ap/Pa Only (08/03/21 11:06) Hs C Reactive Protein (08/03/21 11:06) Manual Differential (08/03/21 10:23) Pantoprazole Injection (Protonix Injecti (08/03/21 12:00) Ns Iv 500 Ml (Sodium Chloride 0.9%) (08/03/21 12:00) Medications Given in ED Current Medications Medications Dose Ordered Sig/Ernst Route Start Time Stop Time Status Last Admin Dose Admin Pantoprazole 40 mg ONCE ONCE IV 08/03/21 12:00 08/03/21 12:01 DC 08/03/21 11:56 40 MG Sodium Chloride 500 ml @ 30 mls/hr [id number] ONCE IV 08/03/21 12:00 08/04/21 04:39 08/03/21 11:57 30 MLS/HR Vital Signs/I&O 08/03/21 10:24 Temp 37.2 Pulse 100 Resp 18 B/P (MAP) 104/70 (81) Pulse Ox 91 O2 Delivery Room Air Blood Pressure Mean: 81 Progress Progress Note : Progress Note Patient examined and in no acute distress. On exam she has no abdominal tenderness. Her abdomen is soft. No vomiting or emesis noted in the emergency department. Will obtain basic labs to evaluate for signs of infection and her hemoglobin hematocrit. Labs reviewed and are unremarkable. No evidence of acute blood loss or infection noted at this time. Chest x-ray negative for pneumonia. She is noted to have cardiomegaly. We will go ahead and add Protonix at this time and have close follow-up with her primary care provider. May be beneficial to have patient scheduled outpatient for EGD if no recent.Reviewed discharge plan with caregiver and she is agreeable with plan. Diagnostic Imaging Diagonstic Imaging: Xray Plain Films/CT/US/NM/MRI: chest Comments [facility] [place], [place] NAME: DERICK JANSEN [facility] REC#: [id number] PT STATUS: REG ER : 1945 PHYSICIAN: TAYLOR MADDOX SENIOR WEB ARCHITECT ADMIT DATE: 08/03/21/ER Draft Date of Exam:08/03/21 CHEST 1 VIEW, AP/PA ONLY INDICATION: Coffee-ground emesis. TIME OF EXAM: 11:30 AM. COMPARISON: Correlation is made with the prior chest from 10/24/2018. FINDINGS: The heart is enlarged but stable. There is central congestion but no overt failure. No parenchymal consolidation is seen. There is no effusion or pneumothorax. IMPRESSION: Cardiomegaly and central congestion. Dictated on workstation # [id number] Dict: 08/03/21 1133 Trans: 08/03/21 1136 [id number] Interpreted by: JAZMINE BREWER MD Electronically signed by: Reviewed: Reviewed by Me Departure Impression Primary Impression: Nausea and vomiting Disposition: XF SNF Condition: Stable Departure-Patient Inst. Decision time for Depature: 11:50 Referrals: NICO HARTMANN DO (PCP/Family) Primary Care Physician Patient Instructions: Nausea and Vomiting, Adult Add. Discharge Instructions: Plan: 1. Follow up with Dr. Hartmann this week. 2. May take Zofran 4mg by mouth every 6 hours as needed for nausea/vomiting. 3. Take Pantoprazole 40mg daily. 4. Encourage plenty of fluids to stay hydrated. 5. Return for fever, persistent nausea/vomiting, or any other new or worsening symptoms. All discharge instructions reviewed with patient and/or family. Voiced understanding. Scripts Ondansetron (Ondansetron Odt) 4 Mg Tab.rapdis 4 MG PO Q6H PRN for NAUSEA/VOMITING-1ST LINE, #14 TAB 0 Refills Prov: TAYLOR MADDOX SENIOR WEB ARCHITECT 08/03/21 Pantoprazole Sodium (Pantoprazole Sodium) 40 Mg Tablet.dr 40 MG PO DAILY for 14 Days, #14 TAB 0 Refills Prov: TAYLOR MADDOX SENIOR WEB ARCHITECT 08/03/21 Copy Copies To 1: NICO HARTMANN STORMY D SENIOR WEB ARCHITECT Aug 03, 2021 11:11
[2021-08-03 11:12] LABS: BASOPHILS % (AUTO) 0 % (0-10); EOSINOPHILS % (AUTO) 0 % (0-10); HEMATOCRIT 43 % (35-52); HEMOGLOBIN 13.5 g/dL (11.5-16.0); LYMPHOCYTES # (AUTO) 0.7 10^3/uL (1.0-4.0); LYMPHOCYTES % (AUTO) 9 % (12-44); MEAN CORPUSCULAR HEMOGLOBIN 30 pg (25-34); MEAN CORPUSCULAR HGB CONC 32 g/dL (32-36); MEAN CORPUSCULAR VOLUME 94 fL (80-99); MEAN PLATELET VOLUME 10.3 fL (9.0-12.2); MONOCYTES # (AUTO) 0.3 10^3/uL (0.0-1.0); MONOCYTES % (AUTO) 4 % (0-12); NEUTROPHILS # (AUTO) 6.3 10^3/uL (1.8-7.8); NEUTROPHILS % (AUTO) 87 % (42-75); PLATELET COUNT 160 10^3/uL (130-400); WHITE BLOOD COUNT 7.3 10^3/uL (4.3-11.0)
[2021-08-03 11:16] LABS: ALBUMIN 3.6 GM/DL (3.2-4.5)
[2021-08-03 11:17] LABS: CALCIUM 9.6 MG/DL (8.5-10.1)
[2021-08-03 11:19] LABS: TOTAL PROTEIN 6.6 GM/DL (6.4-8.2)
[2021-08-03 11:20] LABS: BILIRUBIN,TOTAL 0.3 MG/DL (0.1-1.0)
[2021-08-03 11:22] LABS: CREATININE SERUM 0.7 MG/DL (0.60-1.30)
[2021-08-03 11:31] LABS: BAND NEUTROPHILS 1 %; BASOPHILS % (MANUAL) 0 %; EOSINOPHILS % (MANUAL) 0 %; LYMPHOCYTES % (MANUAL) 11 %; MONOCYTES % (MANUAL) 6 %; NEUTROPHILS % (MANUAL) 82 %; RBC MORPH NORMAL
--- NOTE | 2021-08-03 11:36 | Diagnostic Imaging Report ---
INDICATION: Coffee-ground emesis. TIME OF EXAM: 11:30 AM. COMPARISON: Correlation is made with the prior chest from 10/24/2018. FINDINGS: The heart is enlarged but stable. There is central congestion but no overt failure. No parenchymal consolidation is seen. There is no effusion or pneumothorax. IMPRESSION: Cardiomegaly and central congestion. Dictated by: Dictated on workstation # [id number]
[2021-08-03] MEDS ORDERED: ONDA4TAB11 PO (11:53)
[2021-08-03] MEDS ORDERED: PANT40TA52 PO (11:53)
[2021-08-03] MEDS ORDERED: NS IV 500 ML 500 ML IV ONE (12:00)
[2021-08-03] MEDS ORDERED: PANTOPRAZOLE 40 MG (PROTONIX) VIAL IV ONE (12:00)
== END 2021-08-03 12:30 ==
LOC: EDUNIT# 10:11 → ER 10:13
DX: R11.2 Nausea with vomiting, unspecified (principal); I50.9 Heart failure, unspecified; G20 Parkinson's disease; K21.9 Gastro-esophageal reflux disease without esophagitis; F41.9 Anxiety disorder, unspecified; F32.A Depression, unspecified; Z79.899 Other long term (current) drug therapy
CPT/HCPCS: 36415; 71045; 80053; 85007; 85027; 86141

== ENCOUNTER 2021-08-31 15:20 | Emergency (ER) | payer MEDICARE, MEDICAID ==
[~2021-08-31] VITALS: Ht 160 cm; Wt 113.4 kg
[~2021-08-31 15:20] MED LIST changes: +ONDA4TAB11 PO; +PANT40TA52 PO
[2021-08-31 15:45] LABS: ABG BASE EXCESS 4.6 MMOL/L (-2.5-2.5); ABG OXYGEN SATURATION 96 % (94-100); ABG PCO2 52 MMHG (35-45); ABG PH 7.37 (7.37-7.43); ABG PO2 80 MMHG (79-93); ABG TCO2 31.4 MMOL/L (21.0-31.0)
[2021-08-31] MEDS ORDERED: RT-ALBUTEROL/IPRATROPIUM 3 ML (DUONEB) VIAL INH ONE (15:45)
[2021-08-31 15:46] LABS: ALLENS TEST YES-POS; INSPIRED O2 RA; PATIENT TEMP 36.1; VENTILATOR NO
[2021-08-31 15:57] LABS: BILIRUBIN,URINE NEGATIVE (NEGATIVE); CLARITY,URINE CLEAR; COLOR,URINE YELLOW; GLUCOSE, URINE (UA) NEGATIVE (NEGATIVE); KETONES,URINE NEGATIVE (NEGATIVE); LEUKOCYTE ESTERASE ,URINE TRACE (NEGATIVE); NITRITE,URINE NEGATIVE (NEGATIVE); PH,URINE 6.5 (5-9); PROTEIN,URINE NEGATIVE (NEGATIVE)
[2021-08-31 16:00] LABS: BASOPHILS % (AUTO) 0 % (0-10)
--- NOTE | 2021-08-31 16:01 | ED Cough/URI ---
General Chief Complaint: Respiratory Problems Stated Complaint: SOA - LETHARGIC - COUGH Source: patient Exam Limitations: no limitations (LATASHA GOFF APRN) History of Present Illness Date Seen by Provider: Aug 31, 2021 Time Seen by Provider: 15:59 Initial Comments To ER by private halfway van from [facility] with reports of hypoxia. retirement staff found her to be hypoxic with oxygen saturation of 81% on room air. She is wheelchair-bound and moves with Aris lift. She was found to have oxygen saturation of 81% on room air at the halfway. Typically she does not require oxygen. She does report shortness of breath. No fevers chills or cough. She had pneumonia back in March. Timing/Duration: constant Severity/Quality: moderate Associated Symptoms: cough (LATASHA GOFF APRN) Allergies and Home Medications Allergies Coded Allergies: No Known Drug Allergies (Verified , 09/04/11) Patient Home Medication List Home Medication List Reviewed: Yes (LATASHA GOFF APRN) Acetaminophen (Tylenol Extra Strength) 500 Mg Tablet, 1,000 MG PO Q6H PRN for PAIN, (Reported) Entered as Reported by: RAFAEL JORDAN on 08/25/15 0911 Albuterol Sulfate (Albuterol Sulfate) 2.5 Mg/3 Ml Vial.neb, 2.5 MG IH Q6H PRN for SHORTNESS OF BREATH, (Reported) Entered as Reported by: SUMIT VINCENT on 08/05/15 0940 Amantadine Hcl (Amantadine) 100 Mg Tablet, 100 MG PO DAILY, (Reported) Entered as Reported by: SUMIT VINCENT on 01/27/15 1057 Calcium Carbonate/Vitamin D3 (Omkar-600 W/Vit D Tablet) 1 Tab Tablet, 1 TAB PO DAILY, (Reported) Entered as Reported by: BRIE CAMACHO on 02/18/10 1729 Carbidopa/Levodopa (Carbidopa-Levo 25-250 Tab) 1 Each Tablet, 1 TAB PO SIX TIMES DAILY, (Reported) Entered as Reported by: SUMIT VINCENT on 01/27/15 1057 Cefuroxime Axetil (Cefuroxime) 250 Mg Tablet, 250 MG PO BID Prescribed by: LATASHA GOFF on 10/24/18 1710 Citalopram Hydrobromide (Citalopram Hbr) 10 Mg Tablet, 10 MG PO HS, (Reported) Entered as Reported by: SUMIT VINCENT on 01/27/15 1057 Cyclobenzaprine Hcl (Cyclobenzaprine Hcl) 10 Mg Tablet, 10 MG PO BID, (Reported) Entered as Reported by: BELLO OWENS on 11/17/12 1844 Docusate Sodium (Colace) 100 Mg Capsule, 100 MG PO DAILY PRN for CONSTIPATION, (Reported) Entered as Reported by: RAFAEL JORDAN on 08/25/15 0911 Duloxetine Hcl (Cymbalta) 60 Mg Capsule.dr, 60 MG PO EVERY OTHER DAY, (Reported) Entered as Reported by: SUMIT VINCENT on 01/27/15 105 Duloxetine Hcl (Cymbalta Capsule) 30 Mg Cap, 30 MG PO EVERY OTHER DAY, (Reported) Entered as Reported by: SUMIT VINCENT on 01/27/15 105 Estrogens Conjugated (Premarin) 30 Gm Cr, 0.3 APPFUL VG 1-2 TIMES WEEKLY PRN for PAIN, (Reported) Entered as Reported by: RAFAEL JORDAN on 08/25/15 0911 Hydrocodone Bit/Acetaminophen (Lortab 7.5 Mg Tablet) 1 Each Tablet, 1 TAB PO Q4H PRN for PAIN Prescribed by: RONNY PEREA on 09/01/15 0858 Hypromellose (Systane Gel) 10 Gm Gel..gram., 1 DROP OU HS, (Reported) Entered as Reported by: SUMIT VINCENT on 08/05/15 0944 Lactobacillus Combination No.4 (Probiotic) 1 Each Capsule, 1 CAP PO AC, (Reported) Entered as Reported by: SUMIT VINCENT on 01/27/15 1100 Lactulose (Lactulose) 10 Gm/15 Ml Solution, 10 GM PO Q12H PRN for CONSTIPATION, (Reported) Entered as Reported by: JOHN MINAYA on 04/30/15 1347 Lisinopril (Lisinopril) 10 Mg Tablet, 10 MG PO DAILY Prescribed by: RONNY PEREA on 09/01/15 0858 Loperamide HCl (Imodium A-D) 2 Mg Tablet, 2 MG PO Q6H PRN for DIARRHEA, (Reported) Entered as Reported by: RAFAEL JORDAN on 08/25/15 0911 Lorazepam (Ativan) 0.5 Mg Tablet, 0.5 MG PO BID, (Reported) Entered as Reported by: SUMIT VINCENT on 01/27/15 1057 Lorazepam (Lorazepam) 0.5 Mg Tablet, 0.5 MG PO BID Prescribed by: RONNY PEREA on 09/01/15 0858 Mirabegron (Myrbetriq) 50 Mg Tab.er.24h, 50 MG PO DAILY, (Reported) Entered as Reported by: SUMIT VINCENT on 01/27/15 1100 Multivitamins (Multiple Vitamin) 1 Tab Tablet, 1 TAB PO DAILY, (Reported) Entered as Reported by: CONRADO ROSALES on 06/26/09 0241 Ondansetron (Ondansetron Odt) 4 Mg Tab.rapdis, 4 MG PO Q6H PRN for NAUSEA/VOMITING-1ST LINE Prescribed by: TAYLOR MADDOX on 08/03/21 1153 Ondansetron (Ondansetron Odt) 8 Mg Tab.rapdis, 8 MG PO Q6H PRN for NAUSEA/VOMITING Prescribed by: LATASHA GOFF on 08/31/21 1732 Oseltamivir Phosphate (Tamiflu) 75 Mg Cap, 75 MG PO BID Prescribed by: LATASHA GOFF on 08/31/21 1732 Oxycodone HCl/Acetaminophen (Oxycodone-Acetaminophen 5-325) 1 Each Tablet, 1 EACH PO Q4H PRN for PAIN-MODERATE Prescribed by: LATASHA GOFF on 10/24/18 1710 Pantoprazole Sodium (Pantoprazole Sodium) 40 Mg Tablet.dr, 40 MG PO DAILY Prescribed by: TAYLOR MADDOX on 08/03/21 1153 Pramipexole Di-Hcl (Mirapex) 1.5 Mg Tablet, 1.5 MG PO BID, (Reported) Entered as Reported by: POPEYE BARRIOS on 11/29/12 1012 Prednisone (Prednisone) 10 Mg Tab, 10 MG PO DAILY Prescribed by: RONNY PEREA on 09/01/15 0858 Prednisone (Prednisone) 20 Mg Tab, 40 MG PO DAILY Prescribed by: LATASHA GOFF on 10/24/18 1710 Propylene Glycol (Systane Balance) 10 Ml Drops, 1 DROP OU TID, (Reported) Entered as Reported by: SUMIT VINCENT on 08/05/15 0944 Simethicone (Simethicone) 125 Mg Capsule, 125 MG PO TID, (Reported) Entered as Reported by: SUMIT VINCENT on 01/27/15 1057 Trimethoprim (Trimethoprim) 100 Mg Tablet, 100 MG PO HS, (Reported) Entered as Reported by: SUMIT VINCENT on 01/27/15 1100 Review of Systems Review of Systems Constitutional: see HPI EENTM: see HPI Respiratory: see HPI, cough, short of breath Cardiovascular: no symptoms reported Genitourinary: no symptoms reported Musculoskeletal: no symptoms reported Skin: no symptoms reported Psychiatric/Neurological: No Symptoms Reported Hematologic/Lymphatic: No Symptoms Reported (LATASHA GOFF APRN) Past Uypscdz-Ustlqy-Natmwi Hx Immunizations Up To Date Tetanus Booster (TDap): Unknown PED Vaccines UTD: No First/Initial COVID19 Vaccinat: JUL 04 Second COVID19 Vaccination Greg: JUL 22 (LATASHA GOFF APRN) Seasonal Allergies Seasonal Allergies: No (LATASHA GOFF APRN) Past Medical History Surgeries: Yes ([facility] (Bladder lift), CATARACTS, left tkr, CARPAL TUNNEL) Respiratory: No (FREQUENT COLDS-LINKED TO PARKINSONS) Cardiac: Yes (SYSTOLIC/DIASTOLIC CONGESTIVE HF) Neurological: Yes Parkinson's Disease Reproductive Disorders: No Female 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 [employer] RO[employer]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 History: Menopausal Sexually Transmitted Disease: No HIV/AIDS: No Genitourinary: Yes Neurogenic Bladder, UTI-Chronic Gastrointestinal: Yes (HEP C) Gastroesophageal Reflux, Liver Disease/Jaundice, Hepatitis, Cirrhosis Musculoskeletal: Yes (BONE SPURS, DETERIORATED BONES IN SPINE, INJECTIONS, OSTEOARTHRITIS' LYMPHE) Arthritis Endocrine: No Cataract Loss of Vision: Denies Hearing Impairment: Denies Cancer: No Psychosocial: Yes (PSYCHOTIC DISORDER) Sleep Difficulties, Anxiety, Depression Integumentary: Yes (HX OF CELLULITITS IN LEGS ) Blood Disorders: Yes (HEP C) Adverse Reaction/Blood Tranf: No (LATASHA GOFF APRN) Family Medical History Alcoholism 19 FATHER Cancer G8 SISTER (BREAST) Dementia 19 MOTHER Family history: Arthritis 19 MOTHER Family history: Diabetes mellitus 19 MOTHER No Family History of: Abdominal aortic aneurysm Congenital heart disease Family history: Alzheimer's disease Family history: Asthma Family history: Cardiovascular disease Family history: Gastrointestinal disease Family history: Hypertension Family history: Thyroid disorder Hereditary disease History of - anemia Myocardial infarction Parkinson's disease Prostate cancer Psychotic disorder Seizure disorder Stroke No Pertinent Family Hx (LATASHA GOFF APRN) Physical Exam Vital Signs - First Documented 08/31/21 15:31 Temp 36.1 Pulse 82 Resp 26 B/P (MAP) 102/79 (87) Pulse Ox 98 O2 Delivery Nasal Cannula O2 Flow Rate 2.00 (BRIAN CACERES MD) Capillary Refill : (LATASHA GOFF APRN) Height: 5'2.00" Weight: 220lbs. 16.0oz. [id number]; 42.00 BMI Method:Estimated General Appearance: WD/WN, no apparent distress, other (Oxygen saturation 87 to 89% on room air up to 96% on supplemental oxygen at 2 L.) Eyes: Bilateral Eye Normal Inspection, Bilateral Eye PERRL, Bilateral Eye EOMI HEENT: PERRL/EOMI, normal ENT inspection Neck: non-tender, full range of motion Respiratory: no respiratory distress, no accessory muscle use, wheezing, expiration Cardiovascular: regular rate, rhythm, no murmur Gastrointestinal: normal bowel sounds, non tender, soft Extremities: normal range of motion, non-tender Neurologic/Psychiatric: alert, normal mood/affect, oriented x 3 Skin: normal color, warm/dry (LATASHA GOFF APRN) Focused Exam Lactate Level 08/31/21 15:30: Lactic Acid Level 1.20 (BRIAN CACERES MD) Lactic Acid Level Laboratory Tests Test 08/31/21 15:30 Lactic Acid Level 1.20 MMOL/L (0.50-2.00) (BRIAN CACERES MD) Progress/Results/Core Measures Suspected Sepsis SIRS Temperature: Pulse: Respiratory Rate: Laboratory Tests 08/31/21 15:30: White Blood Count 4.5 Blood Pressure / Mean: 08/31/21 15:30: Lactic Acid Level 1.20 Laboratory Tests 08/31/21 15:30: Creatinine 0.82, INR Comment 1.0, Platelet Count 133, Total Bilirubin 0.4 (LATASHA GOFF APRN) Results/Orders Lab Results Laboratory Tests Test 08/31/21 15:30 08/31/21 15:36 08/31/21 15:40 08/31/21 15:47 Range/Units White Blood Count 4.5 4.3-11.0 10^3/uL Red Blood Count 4.16 3.80-5.11 10^6/uL Hemoglobin 12.5 11.5-16.0 g/dL Hematocrit 40 35-52 % Mean Corpuscular Volume 95 80-99 fL Mean Corpuscular Hemoglobin 30 25-34 pg Mean Corpuscular Hemoglobin Concent 32 32-36 g/dL Red Cell Distribution Width 14.7 H 10.0-14.5 % Platelet Count 133 130-400 10^3/uL Mean Platelet Volume 9.7 9.0-12.2 fL Immature Granulocyte % (Auto) 0 % Neutrophils (%) (Auto) 58 42-75 % Lymphocytes (%) (Auto) 26 12-44 % Monocytes (%) (Auto) 16 H 0-12 % Eosinophils (%) (Auto) 0 0-10 % Basophils (%) (Auto) 0 0-10 % Neutrophils # (Auto) 2.6 1.8-7.8 10^3/uL Lymphocytes # (Auto) 1.2 1.0-4.0 10^3/uL Monocytes # (Auto) 0.7 0.0-1.0 10^3/uL Eosinophils # (Auto) 0.0 0.0-0.3 10^3/uL Basophils # (Auto) 0.0 0.0-0.1 10^3/uL Immature Granulocyte # (Auto) 0.0 0.0-0.1 10^3/uL Percent Immature Platelet Fraction 1.8 0.0-7.6 % Prothrombin Time 13.8 12.2-14.7 SEC INR Comment 1.0 0.8-1.4 Activated Partial Thromboplast Time 30 24-35 SEC Sodium Level 134 L 135-145 MMOL/L Potassium Level 4.0 3.6-5.0 MMOL/L Chloride Level 98 98-107 MMOL/L Carbon Dioxide Level 28 21-32 MMOL/L Anion Gap 8 5-14 MMOL/L Blood Urea Nitrogen 19 H 7-18 MG/DL Creatinine 0.82 0.60-1.30 MG/DL Estimat Glomerular Filtration Rate 75 BUN/Creatinine Ratio 23 Glucose Level 116 H 70-105 MG/DL Lactic Acid Level 1.20 0.50-2.00 MMOL/L Calcium Level 9.1 8.5-10.1 MG/DL Corrected Calcium 9.5 8.5-10.1 MG/DL Total Bilirubin 0.4 0.1-1.0 MG/DL Aspartate Amino Transf (AST/SGOT) 22 5-34 U/L Alanine Aminotransferase (ALT/SGPT) 11 0-55 U/L Alkaline Phosphatase 68 40-136 U/L B-Type Natriuretic Peptide 56.5 <100.0 PG/ML Total Protein 6.0 L 6.4-8.2 GM/DL Albumin 3.5 3.2-4.5 GM/DL Procalcitonin 0.07 <0.10 NG/ML Blood Gas Puncture Site LR Blood Gas Patient Temperature 36.1 Arterial Blood pH 7.37 7.37-7.43 Arterial Blood Partial Pressure CO2 52 H 35-45 MMHG Arterial Blood Partial Pressure O2 80 79-93 MMHG Arterial Blood HCO3 30 H 23-27 MMOL/L Arterial Blood Total CO2 31.4 H 21.0-31.0 MMOL/L Arterial Blood Oxygen Saturation 96 94-100 % Arterial Blood Base Excess 4.6 H -2.5-2.5 MMOL/L Gordon Test YES-POS Blood Gas Ventilator Setting NO Blood Gas Inspired Oxygen RA Urine Color YELLOW Urine Clarity CLEAR Urine pH 6.5 5-9 Urine Specific [place] 1.020 1.016-1.022 Urine Protein NEGATIVE NEGATIVE Urine Glucose (UA) NEGATIVE NEGATIVE Urine Ketones NEGATIVE NEGATIVE Urine Nitrite NEGATIVE NEGATIVE Urine Bilirubin NEGATIVE NEGATIVE Urine Urobilinogen 1.0 < = 1.0 MG/DL Urine Leukocyte Esterase TRACE H NEGATIVE Urine RBC (Auto) NEGATIVE NEGATIVE Urine RBC NONE /HPF Urine WBC 2-5 /HPF Urine Squamous Epithelial Cells NONE /HPF Urine Renal Epithelial Cells NONE /HPF Urine Crystals NONE /LPF Urine Bacteria LARGE H /HPF Urine Casts NONE /LPF Urine Mucus NEGATIVE /LPF Urine Culture Indicated CULTURE PENDING Influenza Type A (RT-PCR) Detected H Not Detecte Influenza Type B (RT-PCR) Not Detected Not Detecte SARS-CoV-2 RNA (RT-PCR) Not Detected Not Detecte (BRIAN CACERES MD) Medications Given in ED Current Medications Medications Dose Ordered Sig/Ernst Route Start Time Stop Time Status Last Admin Dose Admin Albuterol/ Ipratropium 3 ml ONCE ONCE INH 08/31/21 15:45 3/7/22 15:46 DC 08/31/21 15:55 3 ML (BRIAN CACERES MD) Vital Signs/I&O 08/31/21 08/31/21 08/31/21 15:31 15:52 18:56 Temp 36.1 Pulse 82 66 Resp 26 22 B/P (MAP) 102/79 (87) 107/74 Pulse Ox 98 98 95 O2 Delivery Nasal Cannula Nasal Cannula Room Air O2 Flow Rate 2.00 2.00 (BRIAN CACERES MD) Vital Signs/I&O Capillary Refill : (LATASHA GOFF APRN) Departure Communication (Admissions) I have arranged for home oxygen for her back at the nursing facility. We will put her on Tamiflu. Since the SPO2 monitor was moved from her finger to her earlobe she has read anywhere from 92 to 96% on room air. She does drop below 89% with exertion and movement so I will write for some of this to be available at the halfway. NAME: DERICK JANSEN [facility] REC#: [id number] PT STATUS: REG ER : 1945 PHYSICIAN: LATASHA GOFF APRN ADMIT DATE: 08/31/21/ER Signed Date of Exam:08/31/21 CHEST 1 VIEW, AP/PA ONLY Indication: Lower respiratory infection Portable chest 4:34 PM Heart size and pulmonary vascularity are normal. Lungs are clear. There are no effusions or pneumothoraces. IMPRESSION: No acute abnormalities in the chest Dictated by: Dictated on workstation # [id number] Dict: 08/31/21 170 Trans: 08/31/21 170 TCB [id number] Interpreted by: WOODROW PINTO MD Electronically signed by: WOODROW PINTO MD 08/31/211700 (LATASHA GOFF APRN) Impression Primary Impression: Influenza A Disposition: 01 HOME, SELF-CARE Condition: Stable Departure-Patient Inst. Decision time for Depature: 16:33 (LATASHA GOFF APRN) Referrals: NICO PATEL DO (PCP/Family) Primary Care Physician Patient Instructions: Flu Scripts Ondansetron (Ondansetron Odt) 8 Mg Tab.rapdis 8 MG PO Q6H PRN for NAUSEA/VOMITING, #10 TAB Prov: LATASHA GOFF APRN 08/31/21 Oseltamivir Phosphate (Tamiflu) 75 Mg Cap 75 MG PO BID, #10 CAP Prov: LATASHA GOFF APRN 08/31/21 ATTENDING PHYSICIAN NOTE: I was physically present as attending physician in the emergency department du ring the care of this patient, but I was not directly involved in the decision making or delivery of care for this patient. (BRIAN CACERES MD) Copy Copies To 1: NICO PATEL PETER J APRN Aug 31, 2021 16:01 BRIAN CACERES MD Aug 31, 2021 20:43
[2021-08-31 16:02] LABS: EOSINOPHILS % (AUTO) 0 % (0-10); HEMATOCRIT 40 % (35-52); HEMOGLOBIN 12.5 g/dL (11.5-16.0); LYMPHOCYTES # (AUTO) 1.2 10^3/uL (1.0-4.0); LYMPHOCYTES % (AUTO) 26 % (12-44); MEAN CORPUSCULAR HEMOGLOBIN 30 pg (25-34); MEAN CORPUSCULAR HGB CONC 32 g/dL (32-36); MEAN CORPUSCULAR VOLUME 95 fL (80-99); MEAN PLATELET VOLUME 9.7 fL (9.0-12.2); MONOCYTES # (AUTO) 0.7 10^3/uL (0.0-1.0); MONOCYTES % (AUTO) 16 % (0-12); NEUTROPHILS # (AUTO) 2.6 10^3/uL (1.8-7.8); NEUTROPHILS % (AUTO) 58 % (42-75); PLATELET COUNT 133 10^3/uL (130-400); WHITE BLOOD COUNT 4.5 10^3/uL (4.3-11.0)
[2021-08-31 16:11] LABS: BACTERIA,URINE LARGE /HPF
[2021-08-31 16:17] LABS: ALBUMIN 3.5 GM/DL (3.2-4.5); PROTHROMBIN TIME PATIENT 13.8 SEC (12.2-14.7)
[2021-08-31 16:18] LABS: CALCIUM 9.1 MG/DL (8.5-10.1)
[2021-08-31 16:21] LABS: BILIRUBIN,TOTAL 0.4 MG/DL (0.1-1.0)
[2021-08-31 16:23] LABS: CREATININE SERUM 0.82 MG/DL (0.60-1.30)
--- NOTE | 2021-08-31 17:03 | Diagnostic Imaging Report ---
Indication: Lower respiratory infection Portable chest 4:34 PM Heart size and pulmonary vascularity are normal. Lungs are clear. There are no effusions or pneumothoraces. IMPRESSION: No acute abnormalities in the chest Dictated by: Dictated on workstation # [id number]
[2021-08-31] MEDS ORDERED: ONDA8TAB13 PO (17:32)
[2021-08-31] MEDS ORDERED: OSLT75C PO (17:32)
[2021-08-31 18:56] VITALS: BP 107/74
== END 2021-08-31 18:56 | disposition home or self-care (01) ==
LOC: EDUNIT# 15:20 → ER 15:21
DX: J10.1 Influenza due to other identified influenza virus with other respiratory manifestations (principal); Z20.822 Contact with and (suspected) exposure to COVID-19
CPT/HCPCS: 36415; 71045; 80053; 81000; 82805; 83605; 83880; 84145; 85025; 85610; 85730; 87040; 87077; 87088; 87636; 94640

== ENCOUNTER 2021-12-04 13:42 | Emergency (ER) | payer MEDICARE, MEDICAID ==
[~2021-12-04] VITALS: Ht 160 cm; Wt 102.0 kg
[2021-12-04 13:42] VITALS: BP 130/103
[~2021-12-04 13:42] MED LIST changes: +ONDA8TAB13 PO; +OSLT75C PO
--- NOTE | 2021-12-04 13:56 | ED Respiratory ---
General Chief Complaint: Respiratory Problems Nursing Triage Note: ARRIVED VIA EMS FROM [facility] AFTER PT BECAME CHOKED WHILE EATING. HALFWAY HAS CONCENS WITH ASPIRATION. Source: patient, EMS Exam Limitations: clinical condition History of Present Illness Date Seen by Provider: Dec 04, 2021 Time Seen by Provider: 13:40 Initial Comments Patient is a 76-year-old female who presents to the emergency department today with a chief complaint of a choking episode while eating just prior to arrival. She has a history of Parkinson's disease and has problems with choking and aspiration. She did not require the Heimlich maneuver. She did not lose vital signs during the episode. On arrival to the emergency department she feels much better and has no complaints. She is able to speak at her normal baseline. She is swallowing normally, she does not feel short of breath. Pulse ox on room air is 96%. She is in no respiratory distress. She did apparently vomit as evidenced by vomit on her clothes. No complaints of recent illness. All other review of systems reviewed and negative except as stated. Timing/Duration: just prior to arrival Severity: severe Prior Episodes/Possible Cause: occasional episodes Associated Symptoms: denies symptoms Allergies and Home Medications Allergies Coded Allergies: No Known Drug Allergies (Verified , 09/04/11) Patient Home Medication List Home Medication List Reviewed: Yes Acetaminophen (Tylenol Extra Strength) 500 Mg Tablet, 1,000 MG PO Q6H PRN for PAIN, (Reported) Entered as Reported by: RAFAEL JORDAN on 08/25/15 0911 Albuterol Sulfate (Albuterol Sulfate) 2.5 Mg/3 Ml Vial.neb, 2.5 MG IH Q6H PRN for SHORTNESS OF BREATH, (Reported) Entered as Reported by: SUMIT VINCENT on 08/05/15 0940 Amantadine Hcl (Amantadine) 100 Mg Tablet, 100 MG PO DAILY, (Reported) Entered as Reported by: SUMIT VINCENT on 01/27/15 1057 Calcium Carbonate/Vitamin D3 (Omkar-600 W/Vit D Tablet) 1 Tab Tablet, 1 TAB PO DAILY, (Reported) Entered as Reported by: BRIE CAMACHO on 02/18/10 1729 Carbidopa/Levodopa (Carbidopa-Levo 25-250 Tab) 1 Each Tablet, 1 TAB PO SIX TIMES DAILY, (Reported) Entered as Reported by: SUMIT VINCENT on 01/27/15 1057 Cefuroxime Axetil (Cefuroxime) 250 Mg Tablet, 250 MG PO BID Prescribed by: LATASHA GOFF on 10/24/18 1710 Citalopram Hydrobromide (Citalopram Hbr) 10 Mg Tablet, 10 MG PO HS, (Reported) Entered as Reported by: SUMIT VINCENT on 01/27/15 1057 Cyclobenzaprine Hcl (Cyclobenzaprine Hcl) 10 Mg Tablet, 10 MG PO BID, (Reported) Entered as Reported by: BELLO OWENS on 11/17/12 1844 Docusate Sodium (Colace) 100 Mg Capsule, 100 MG PO DAILY PRN for CONSTIPATION, (Reported) Entered as Reported by: RAFAEL JORDAN on 08/25/15 0911 Duloxetine Hcl (Cymbalta) 60 Mg Capsule.dr, 60 MG PO EVERY OTHER DAY, (Reported) Entered as Reported by: SUMIT VINCENT on 01/27/15 1057 Duloxetine Hcl (Cymbalta Capsule) 30 Mg Cap, 30 MG PO EVERY OTHER DAY, (Reported) Entered as Reported by: SUMIT VINCENT on 01/27/15 1057 Estrogens Conjugated (Premarin) 30 Gm Cr, 0.3 APPFUL VG 1-2 TIMES WEEKLY PRN for PAIN, (Reported) Entered as Reported by: RAFAEL JORDAN on 08/25/15 0911 Hydrocodone Bit/Acetaminophen (Lortab 7.5 Mg Tablet) 1 Each Tablet, 1 TAB PO Q4H PRN for PAIN Prescribed by: RONNY PEREA on 09/01/15 0858 Hypromellose (Systane Gel) 10 Gm Gel..gram., 1 DROP OU HS, (Reported) Entered as Reported by: SUMIT VINCENT on 08/05/15 0944 Lactobacillus Combination No.4 (Probiotic) 1 Each Capsule, 1 CAP PO AC, (Reported) Entered as Reported by: SUMIT VINCENT on 01/27/15 1100 Lactulose (Lactulose) 10 Gm/15 Ml Solution, 10 GM PO Q12H PRN for CONSTIPATION, (Reported) Entered as Reported by: JOHN MINAYA on 04/30/15 1347 Lisinopril (Lisinopril) 10 Mg Tablet, 10 MG PO DAILY Prescribed by: RONNY PEREA on 09/01/15 0858 Loperamide HCl (Imodium A-D) 2 Mg Tablet, 2 MG PO Q6H PRN for DIARRHEA, (Reported) Entered as Reported by: RAFAEL JORDAN on 08/25/15 0911 Lorazepam (Ativan) 0.5 Mg Tablet, 0.5 MG PO BID, (Reported) Entered as Reported by: SUMIT VINCENT on 01/27/15 1057 Lorazepam (Lorazepam) 0.5 Mg Tablet, 0.5 MG PO BID Prescribed by: RONNY PEREA on 09/01/15 0858 Mirabegron (Myrbetriq) 50 Mg Tab.er.24h, 50 MG PO DAILY, (Reported) Entered as Reported by: SUMIT VINCENT on 01/27/15 1100 Multivitamins (Multiple Vitamin) 1 Tab Tablet, 1 TAB PO DAILY, (Reported) Entered as Reported by: CONRADO ROSALES on 06/26/09 0241 Ondansetron (Ondansetron Odt) 4 Mg Tab.rapdis, 4 MG PO Q6H PRN for NAUSEA/ VOMITING-1ST LINE Prescribed by: TAYLOR MADDOX on 08/03/21 1153 Ondansetron (Ondansetron Odt) 8 Mg Tab.rapdis, 8 MG PO Q6H PRN for NAUSEA/VOMITING Prescribed by: LATASHA GOFF on 08/31/21 1732 Oseltamivir Phosphate (Tamiflu) 75 Mg Cap, 75 MG PO BID Prescribed by: LATASHA GOFF on 08/31/21 1732 Oxycodone HCl/Acetaminophen (Oxycodone-Acetaminophen 5-325) 1 Each Tablet, 1 EACH PO Q4H PRN for PAIN-MODERATE Prescribed by: LATASHA GOFF on 10/24/18 1710 Pantoprazole Sodium (Pantoprazole Sodium) 40 Mg Tablet.dr, 40 MG PO DAILY Prescribed by: TAYLOR MADDOX on 08/03/21 1153 Pramipexole Di-Hcl (Mirapex) 1.5 Mg Tablet, 1.5 MG PO BID, (Reported) Entered as Reported by: POPEYE BARRIOS on 11/29/12 1012 Prednisone (Prednisone) 10 Mg Tab, 10 MG PO DAILY Prescribed by: RONNY PEREA on 09/01/15 0858 Prednisone (Prednisone) 20 Mg Tab, 40 MG PO DAILY Prescribed by: LATASHA GOFF on 10/24/18 1710 Propylene Glycol (Systane Balance) 10 Ml Drops, 1 DROP OU TID, (Reported) Entered as Reported by: SUMIT VINCENT on 08/05/15 0944 Simethicone (Simethicone) 125 Mg Capsule, 125 MG PO TID, (Reported) Entered as Reported by: SUMIT VINCENT on 01/27/15 1057 Trimethoprim (Trimethoprim) 100 Mg Tablet, 100 MG PO HS, (Reported) Entered as Reported by: SUMIT VINCENT on 01/27/15 1100 Review of Systems Review of Systems Constitutional: see HPI EENTM: no symptoms reported Respiratory: no symptoms reported Cardiovascular: no symptoms reported Gastrointestinal: vomiting Genitourinary: no symptoms reported (After choking) : No Musculoskeletal: no symptoms reported Skin: no symptoms reported All Other Systems Reviewed Negative Unless Noted: Yes Past Hkiwhrf-Uevole-Opkjgp Hx Patient Social History Smoking Status: Former Smoker Substance use?: No Alcohol Use?: No Immunizations Up To Date Tetanus Booster (TDap): Unknown PED Vaccines UTD: No First/Initial COVID19 Vaccinat: UNKNOWN Second COVID19 Vaccination Greg: JUL 22 Seasonal Allergies Seasonal Allergies: No Past Medical History Surgeries: Yes ([facility] (Bladder lift), CATARACTS, left tkr, CARPAL TUNNEL) Respiratory: No (FREQUENT COLDS-LINKED TO PARKINSONS) Cardiac: Yes (SYSTOLIC/DIASTOLIC CONGESTIVE HF) Neurological: Yes Parkinson's Disease Reproductive Disorders: No Female 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 [employer] History: Menopausal Sexually Transmitted Disease: No HIV/AIDS: No Genitourinary: Yes Neurogenic Bladder, UTI-Chronic Gastrointestinal: Yes (HEP C) Gastroesophageal Reflux, Liver Disease/Jaundice, Hepatitis, Cirrhosis Musculoskeletal: Yes (BONE SPURS, DETERIORATED BONES IN SPINE, INJECTIONS, OSTEOARTHRITIS' LYMPHE) Arthritis Endocrine: No Cataract Loss of Vision: Denies Hearing Impairment: Denies Cancer: No Psychosocial: Yes (PSYCHOTIC DISORDER) Sleep Difficulties, Anxiety, Depression Integumentary: Yes (HX OF CELLULITITS IN LEGS ) Blood Disorders: Yes (HEP C) Adverse Reaction/Blood Tranf: No Family Medical History Alcoholism 19 FATHER Cancer G8 SISTER (BREAST) Dementia 19 MOTHER Family history: Arthritis 19 MOTHER Family history: Diabetes mellitus 19 MOTHER No Family History of: Abdominal aortic aneurysm Congenital heart disease Family history: Alzheimer's disease Family history: Asthma Family history: Cardiovascular disease Family history: Gastrointestinal disease Family history: Hypertension Family history: Thyroid disorder Hereditary disease History of - anemia Myocardial infarction Parkinson's disease Prostate cancer Psychotic disorder Seizure disorder Stroke No Pertinent Family Hx Physical Exam Vital Signs - First Documented 12/04/21 13:42 Temp 36.1 Pulse 72 Resp 16 B/P (MAP) 130/103 (112) Pulse Ox 95 O2 Delivery Room Air Capillary Refill : Less Than 3 Seconds Height: 5'2.00" Weight: 220lbs. 16.0oz. 99.282316it; 39.00 BMI Method:Estimated General Appearance: WD/WN, no apparent distress Eyes: Bilateral Eye Normal Inspection, Bilateral Eye PERRL, Bilateral Eye EOMI, Bilateral Eye Other (Patient has roving gaze consistent with her Parkinson's disease) HEENT: PERRL/EOMI, pharynx normal, other (No abrasions or trauma noted to the posterior) Respiratory: lungs clear, normal breath sounds, no respiratory distress, no accessory muscle use Cardiovascular: regular rate, rhythm Gastrointestinal: non tender, soft Extremities: normal inspection Neurologic/Psychiatric: alert, normal mood/affect Skin: normal color, warm/dry Progress/Results/Core Measures Suspected Sepsis SIRS Temperature: Pulse: 72 Respiratory Rate: 16 Blood Pressure 130 /103 Mean: 112 Results/Orders Vital Signs/I&O 12/04/21 13:42 Temp 36.1 Pulse 72 Resp 16 B/P (MAP) 130/103 (112) Pulse Ox 95 O2 Delivery Room Air Capillary Refill : Less Than 3 Seconds Blood Pressure Mean: 112 Progress Note : Time: 13:54 Progress Note Patient seen and evaluated, concern for choking and possible aspiration. The patient is completely asymptomatic on arrival to the emergency department. Oxygen saturations are within normal limits. She is in no distress. Her lungs are clear, respirations are even and unlabored. She is in some distress secondary to her movement disorder/Parkinson's but no acute complaints requiring further intervention or evaluation from the emergency department. Departure Impression Primary Impression: Choking due to food (regurgitated) Qualified Codes: T17.320A - Food in larynx causing asphyxiation, initial encounter Disposition: 01 HOME, SELF-CARE Condition: Stable Departure-Patient Inst. Decision time for Depature: 13:55 Referrals: NICO PATEL DO (PCP/Family) Primary Care Physician Patient Instructions: Choking Add. Discharge Instructions: Resume home medications. Return to the emergency department for any new, concerning or emergent complaints. All discharge instructions reviewed with patient and/or family. Voiced understanding. Copy Copies To 1: NICO PATEL KATHRYN M MD Dec 04, 2021 13:56
== END 2021-12-04 14:31 | disposition home or self-care (01) ==
LOC: EDUNIT# 13:42 → ER 13:42
DX: T17.320A Food in larynx causing asphyxiation, initial encounter (principal); G20 Parkinson's disease; Z87.891 Personal history of nicotine dependence
CPT/HCPCS: 99283

== ENCOUNTER 2022-04-09 15:41 | Emergency (ER) | payer MEDICARE, MEDICAID ==
[~2022-04-09] VITALS: Ht 157 cm; Wt 113.0 kg
[~2022-04-09 15:41] MED LIST changes: +CARB1TAB35 PO
[2022-04-09] MEDS ORDERED: PANTOPRAZOLE 40 MG (PROTONIX) VIAL IV ONE (16:00)
[2022-04-09 16:07] LABS: BASOPHILS % (AUTO) 0 % (0-10); EOSINOPHILS % (AUTO) 0 % (0-10); HEMATOCRIT 41 % (35-52); HEMOGLOBIN 13.4 g/dL (11.5-16.0); LYMPHOCYTES # (AUTO) 1.1 10^3/uL (1.0-4.0); LYMPHOCYTES % (AUTO) 11 % (12-44); MEAN CORPUSCULAR HEMOGLOBIN 31 pg (25-34); MEAN CORPUSCULAR HGB CONC 33 g/dL (32-36); MEAN CORPUSCULAR VOLUME 94 fL (80-99); MEAN PLATELET VOLUME 9.6 fL (9.0-12.2); MONOCYTES # (AUTO) 0.3 10^3/uL (0.0-1.0); MONOCYTES % (AUTO) 3 % (0-12); NEUTROPHILS # (AUTO) 7.9 10^3/uL (1.8-7.8); NEUTROPHILS % (AUTO) 84 % (42-75); PLATELET COUNT 148 10^3/uL (130-400); WHITE BLOOD COUNT 9.4 10^3/uL (4.3-11.0)
--- NOTE | 2022-04-09 16:21 | ED Abdominal Pain ---
General Chief Complaint: Abdominal/GI Problems Stated Complaint: NAUSEA/VOMITING Nursing Triage Note: PT HERE PER EMS FROM [facility], ONLY REPORT WAS RECIEVED PER EMS, THEY STATE PT HAS HAD N/V SINCE EARLY THIS AM. WAS GIVEN ZOFRAN AT 1400 PER PR NOTES. Source of Information: Patient Exam Limitations: No Limitations History of Present Illness Date Seen by Provider: Apr 09, 2022 Time Seen by Provider: 16:03 Initial Comments This is a 76-year-old female who presented via [facility] from the [facility] for concerns of nausea and vomiting since this morning. She had been given Zofran twice today with persistent vomiting. MCC described as coffee ground emesis. Her last dose of Zofran was on 1400 this evening. She states that she feels sick at her stomach. [facility] does note that her last bowel movement was 3 days ago. does have history of constipation. No reports of fever, cough, chest pain, shortness of breath. Allergies and Home Medications Allergies Coded Allergies: No Known Drug Allergies (Verified , 09/04/11) Patient Home Medication List Home Medication List Reviewed: Yes Acetaminophen (Tylenol Extra Strength) 500 Mg Tablet, 1,000 MG PO Q6H PRN for PAIN, (Reported) Entered as Reported by: RAFAEL JORDAN on 08/25/15 0911 Albuterol Sulfate (Albuterol Sulfate) 2.5 Mg/3 Ml Vial.neb, 2.5 MG IH Q6H PRN for SHORTNESS OF BREATH, (Reported) Entered as Reported by: SUMIT VINCENT on 08/05/15 0940 Amantadine Hcl (Amantadine) 100 Mg Tablet, 100 MG PO DAILY, (Reported) Entered as Reported by: SUMIT VINCENT on 01/27/15 1057 Calcium Carbonate/Vitamin D3 (Omkar-600 W/Vit D Tablet) 1 Tab Tablet, 1 TAB PO DAILY, (Reported) Entered as Reported by: BRIE CAMACHO on 02/18/10 1729 Carbidopa/Levodopa (Carbidopa-Levo 25-250 Tab) 1 Each Tablet, 1 TAB PO SIX TIMES DAILY, (Reported) Entered as Reported by: SUMIT VINCENT on 01/27/15 1057 Cefuroxime Axetil (Cefuroxime) 250 Mg Tablet, 250 MG PO BID Prescribed by: LATASHA GOFF on 10/24/18 1710 Citalopram Hydrobromide (Citalopram Hbr) 10 Mg Tablet, 10 MG PO HS, (Reported) Entered as Reported by: SUMIT VINCENT on 01/27/15 105 Cyclobenzaprine Hcl (Cyclobenzaprine Hcl) 10 Mg Tablet, 10 MG PO BID, (Reported) Entered as Reported by: BELLO OWENS on 11/17/12 1844 Docusate Sodium (Colace) 100 Mg Capsule, 100 MG PO DAILY PRN for CONSTIPATION, (Reported) Entered as Reported by: RAFAEL JORDAN on 08/25/15 0911 Duloxetine Hcl (Cymbalta) 60 Mg Capsule.dr, 60 MG PO EVERY OTHER DAY, (Reported) Entered as Reported by: SUMIT VINCENT on 01/27/15 105 Duloxetine Hcl (Cymbalta Capsule) 30 Mg Cap, 30 MG PO EVERY OTHER DAY, (Reported) Entered as Reported by: SUMIT VINCENT on 01/27/15 105 Estrogens Conjugated (Premarin) 30 Gm Cr, 0.3 APPFUL VG 1-2 TIMES WEEKLY PRN for PAIN, (Reported) Entered as Reported by: RAFAEL JORDAN on 08/25/15 0911 Hydrocodone Bit/Acetaminophen (Lortab 7.5 Mg Tablet) 1 Each Tablet, 1 TAB PO Q4H PRN for PAIN Prescribed by: RONNY PEREA on 09/01/15 0858 Hypromellose (Systane Gel) 10 Gm Gel..gram., 1 DROP OU HS, (Reported) Entered as Reported by: SUMIT VINCENT on 08/05/15 0944 Lactobacillus Combination No.4 (Probiotic) 1 Each Capsule, 1 CAP PO AC, (Reported) Entered as Reported by: SUMIT VINCENT on 01/27/15 1100 Lactulose (Lactulose) 10 Gm/15 Ml Solution, 10 GM PO Q12H PRN for CONSTIPATION, (Reported) Entered as Reported by: JOHN MINAYA on 04/30/15 1347 Lisinopril (Lisinopril) 10 Mg Tablet, 10 MG PO DAILY Prescribed by: RONNY PEREA on 09/01/15 0858 Loperamide HCl (Imodium A-D) 2 Mg Tablet, 2 MG PO Q6H PRN for DIARRHEA, (Re ported) Entered as Reported by: RAFAEL JORDAN on 08/25/15 0911 Lorazepam (Ativan) 0.5 Mg Tablet, 0.5 MG PO BID, (Reported) Entered as Reported by: SUMIT VINCENT on 01/27/15 1057 Lorazepam (Lorazepam) 0.5 Mg Tablet, 0.5 MG PO BID Prescribed by: RONNY PEREA on 09/01/15 0858 Mirabegron (Myrbetriq) 50 Mg Tab.er.24h, 50 MG PO DAILY, (Reported) Entered as Reported by: SUMIT VINCENT on 01/27/15 1100 Multivitamins (Multiple Vitamin) 1 Tab Tablet, 1 TAB PO DAILY, (Reported) Entered as Reported by: CONRADO ROSALES on 06/26/09 0241 Ondansetron (Ondansetron Odt) 4 Mg Tab.rapdis, 4 MG PO Q6H PRN for NAUSEA/VOMITING-1ST LINE Prescribed by: TAYLOR MADDOX on 08/03/21 1153 Ondansetron (Ondansetron Odt) 8 Mg Tab.rapdis, 8 MG PO Q6H PRN for NAUSEA/VOMITING Prescribed by: LATASHA GOFF on 08/31/21 173 Oseltamivir Phosphate (Tamiflu) 75 Mg Cap, 75 MG PO BID Prescribed by: LATASHA GOFF on 08/31/21 173 Oxycodone HCl/Acetaminophen (Oxycodone-Acetaminophen 5-325) 1 Each Tablet, 1 EACH PO Q4H PRN for PAIN-MODERATE Prescribed by: LATASHA GOFF on 10/24/18 1710 Pantoprazole Sodium (Pantoprazole Sodium) 40 Mg Tablet.dr, 40 MG PO DAILY Prescribed by: TAYLOR MADDOX on 08/03/21 1153 Pramipexole Di-Hcl (Mirapex) 1.5 Mg Tablet, 1.5 MG PO BID, (Reported) Entered as Reported by: POPEYE BARRIOS on 11/29/12 1012 Prednisone (Prednisone) 10 Mg Tab, 10 MG PO DAILY Prescribed by: RONNY PEREA on 09/01/15 0858 Prednisone (Prednisone) 20 Mg Tab, 40 MG PO DAILY Prescribed by: LATASHA GOFF on 10/24/18 1710 Propylene Glycol (Systane Balance) 10 Ml Drops, 1 DROP OU TID, (Reported) Entered as Reported by: SUMIT VINCENT on 08/05/15 0944 Simethicone (Simethicone) 125 Mg Capsule, 125 MG PO TID, (Reported) Entered as Reported by: SUMIT VINCENT on 01/27/15 1057 Trimethoprim (Trimethoprim) 100 Mg Tablet, 100 MG PO HS, (Reported) Entered as Reported by: SUMIT VINCENT on 01/27/15 1100 Review of Systems Review of Systems Constitutional: see HPI EENTM: No Symptoms Reported Respiratory: No Symptoms Reported Cardiovascular: No Symptoms Reported Gastrointestinal: Nausea, Vomiting Genitourinary: No Symptoms Reported Musculoskeletal: no symptoms reported Skin: no symptoms reported Psychiatric/Neurological: No Symptoms Reported Endocrine: No Symptoms Reported Hematologic/Lymphatic: No Symptoms Reported Past Gymyocs-Bwcgun-Yiipcl Hx Patient Social History Tobacco Use?: No Substance use?: No Alcohol Use?: No Pt feels they are or have been: No Immunizations Up To Date Tetanus Booster (TDap): Unknown PED Vaccines UTD: No First/Initial COVID19 Vaccinat: UNKNOWN Second COVID19 Vaccination Greg: UNKNOWN Third COVID19 Vaccination Date: UNKNOWN Seasonal Allergies Seasonal Allergies: No Past Medical History Surgeries: Yes ([facility] (Bladder lift), CATARACTS, left tkr, CARPAL TUNNEL) Respiratory: No (FREQUENT COLDS-LINKED TO PARKINSONS) Cardiac: Yes (SYSTOLIC/DIASTOLIC CONGESTIVE HF) Neurological: Yes Parkinson's Disease Reproductive Disorders: No Female 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 Sexually Transmitted Disease: No HIV/AIDS: No Genitourinary: Yes Neurogenic Bladder, UTI-Chronic Gastrointestinal: Yes (HEP C) Gastroesophageal Reflux, Liver Disease/Jaundice, Hepatitis, Cirrhosis Musculoskeletal: Yes (BONE SPURS, DETERIORATED BONES IN SPINE, INJECTIONS, OSTEOARTHRITIS' LYMPHE) Arthritis Endocrine: No Cataract Loss of Vision: Denies Hearing Impairment: Denies Cancer: No Psychosocial: Yes (PSYCHOTIC DISORDER) Sleep Difficulties, Anxiety, Depression Integumentary: Yes (HX OF CELLULITITS IN LEGS ) Blood Disorders: Yes (HEP C) Adverse Reaction/Blood Tranf: No Family Medical History Alcoholism 19 FATHER Cancer G8 SISTER (BREAST) Dementia 19 MOTHER Family history: Arthritis 19 MOTHER Family history: Diabetes mellitus 19 MOTHER No Family History of: Abdominal aortic aneurysm Congenital heart disease Family history: Alzheimer's disease Family history: Asthma Family history: Cardiovascular disease Family history: Gastrointestinal disease Family history: Hypertension Family history: Thyroid disorder Hereditary disease History of - anemia Myocardial infarction Parkinson's disease Prostate cancer Psychotic disorder Seizure disorder Stroke No Pertinent Family Hx Physical Exam Vital Signs Vital Signs - First Documented 04/09/22 15:42 Temp 36.3 Pulse 82 Resp 18 B/P (MAP) 126/86 (99) Pulse Ox 95 O2 Delivery Nasal Cannula O2 Flow Rate 2.00 Capillary Refill : Less Than 3 Seconds Height/Weight/BMI Height: 5'2.00" Weight: 220lbs. 16.0oz. 99.967249gg; 45.00 BMI Method:Estimated General Appearance: WD/WN, no apparent distress HEENT: PERRL/EOMI, normal ENT inspection, pharynx normal Neck: full range of motion, normal inspection Respiratory: lungs clear, normal breath sounds, no respiratory distress, no accessory muscle use Cardiovascular: regular rate, rhythm, no murmur Gastrointestinal: normal bowel sounds, soft, tenderness Rectal: No black stool Extremities: normal range of motion, normal inspection Neurologic/Psychiatric: no motor/sensory deficits, alert, normal mood/affect, oriented x 3 Skin: normal color, warm/dry Progress/Results/Core Measures Results/Orders Lab Results Laboratory Tests Test 04/09/22 15:58 Range/Units White Blood Count 9.4 4.3-11.0 10^3/uL Red Blood Count 4.39 3.80-5.11 10^6/uL Hemoglobin 13.4 11.5-16.0 g/dL Hematocrit 41 35-52 % Mean Corpuscular Volume 94 80-99 fL Mean Corpuscular Hemoglobin 31 25-34 pg Mean Corpuscular Hemoglobin Concent 33 32-36 g/dL Red Cell Distribution Width 13.8 10.0-14.5 % Platelet Count 148 130-400 10^3/uL Mean Platelet Volume 9.6 9.0-12.2 fL Immature Granulocyte % (Auto) 1 % Neutrophils (%) (Auto) 84 H 42-75 % Lymphocytes (%) (Auto) 11 L 12-44 % Monocytes (%) (Auto) 3 0-12 % Eosinophils (%) (Auto) 0 0-10 % Basophils (%) (Auto) 0 0-10 % Neutrophils # (Auto) 7.9 H 1.8-7.8 10^3/uL Lymphocytes # (Auto) 1.1 1.0-4.0 10^3/uL Monocytes # (Auto) 0.3 0.0-1.0 10^3/uL Eosinophils # (Auto) 0.0 0.0-0.3 10^3/uL Basophils # (Auto) 0.0 0.0-0.1 10^3/uL Immature Granulocyte # (Auto) 0.1 0.0-0.1 10^3/uL Sodium Level 138 135-145 MMOL/L Potassium Level 4.6 3.6-5.0 MMOL/L Chloride Level 100 98-107 MMOL/L Carbon Dioxide Level 30 21-32 MMOL/L Anion Gap 8 5-14 MMOL/L Blood Urea Nitrogen 21 H 7-18 MG/DL Creatinine 0.69 0.60-1.30 MG/DL Estimat Glomerular Filtration Rate 91 BUN/Creatinine Ratio 30 Glucose Level 159 H 70-105 MG/DL Calcium Level 9.2 8.5-10.1 MG/DL Corrected Calcium 9.4 8.5-10.1 MG/DL Total Bilirubin 0.3 0.1-1.0 MG/DL Aspartate Amino Transf (AST/SGOT) 12 5-34 U/L Alanine Aminotransferase (ALT/SGPT) < 6 0-55 U/L Alkaline Phosphatase 78 40-136 U/L Total Protein 6.9 6.4-8.2 GM/DL Albumin 3.7 3.2-4.5 GM/DL My Orders Orders - TAYLOR MADDOX MARKING ROOM SUPERVISOR Cbc With Automated Diff (04/09/22 15:56) Comprehensive Metabolic Panel (04/09/22 15:56) Ekg Tracing (04/09/22 15:56) Chest 1 View, Ap/Pa Only (04/09/22 15:56) Ua Culture If Indicated (04/09/22 15:56) Pantoprazole Injection (Protonix Injecti (04/09/22 16:00) Iohexol Injection (Omnipaque 350 Mg/Ml 1 (04/09/22 16:45) Received Contrast (Hold Metformin- Contr (04/09/22 16:45) Sodium Chloride Flush (Catheter Flush Sy (04/09/22 16:45) Ns (Ivpb) (Sodium Chloride 0.9% Ivpb Bag (04/09/22 16:45) Ct Abdomen/Pelvis Wo (04/09/22 15:56) Promethazine Injection (Phenergan Injec (04/09/22 18:00) Rx-Promethazine Hcl (Rx-Phenergan Supp) (04/09/22 18:42) Medications Given in ED Vital Signs/I&O 04/09/22 04/09/22 15:42 19:15 Temp 36.3 Pulse 82 67 Resp 18 17 B/P (MAP) 126/86 (99) 153/85 Pulse Ox 95 95 O2 Delivery Nasal Cannula Nasal Cannula O2 Flow Rate 2.00 2.00 Blood Pressure Mean: 99 Progress Progress Note : Progress Note Labs reviewed, no elevation in WBC, Hgb-13.4, Hct-41 stable chemistry unremarkable. Given Zofran IV and Phenergan IM with improvement of her nausea. [place] Phenergan helped more with her symptoms. Gastric occult negative. Encouraged clear liquids until no longer vomiting. To return to ER if she develops any new or worsening symptoms. Initial ECG Impression Date: Apr 09, 2022 Initial ECG Impression Time: 16:23 Initial ECG Rate: 81 Initial ECG Rhythm: Normal Sinus Diagnostic Imaging Comments [facility] [place], [place] NAME: DERICK JANSEN [facility] REC#: [id number] PT STATUS: DEP ER : 1945 PHYSICIAN: TAYLOR MADDOX APRN ADMIT DATE: 04/09/22/ER Signed Date of Exam:04/09/22 CT ABDOMEN/PELVIS WO PROCEDURE: CT abdomen and pelvis without contrast. TECHNIQUE: Multiple contiguous axial images were obtained through the abdomen and pelvis without the use of intravenous contrast. Auto Exposure Controls were utilized during the CT exam to meet ALARA standards for radiation dose reduction. INDICATION: Coffee-ground emesis. Constipation. COMPARISON: CT abdomen and pelvis from 09/18/2013. FINDINGS: Lung bases are clear. The liver, gallbladder, pancreas, spleen, adrenals, left kidney, collecting systems and bladder are negative on this noncontrast exam. Nonobstructing calyceal tip renal stone in the right kidney measuring 0.3 cm. Reproductive structures are unremarkable. Normal appendix. No free intraperitoneal air or fluid. No lymphadenopathy. No evidence of bowel obstruction. Advanced spondylotic changes in the visualized spine. No acute osseous findings. Chronic right superior and inferior pubic rami fractures. IMPRESSION: 1. No acute CT findings in the abdomen or pelvis. 2. Nonobstructing calyceal tip renal stone in the right kidney measuring 0.3 cm. No ureteral stone or hydronephrosis. Dictated by: Dictated on workstation # [id number] Dict: 04/09/221720 Trans: 04/09/221943 AS6 [id number] Interpreted by: KIRT RINCON MD Electronically signed by: KIRT RINCON MD 04/09/221943 Comments [facility] [place] NAME: DERICK JANSEN [facility] REC#: [id number] PT STATUS: REG ER : 1945 PHYSICIAN: TAYLOR MADDOX MARKING ROOM SUPERVISOR ADMIT DATE: 04/09/22/ER Signed Date of Exam:04/09/22 CHEST 1 VIEW, AP/PA ONLY INDICATION: SOA COMPARISON: 08/31/2021. FINDINGS: Single frontal view of the chest demonstrates stable mild cardiomegaly. Pulmonary vasculature however is within normal limits. The lungs are well aerated and clear. No large pleural effusion or pneumothorax is seen. The visualized osseous structures show no acute abnormalities. IMPRESSION: 1. Cardiomegaly, but no evidence of failure or focal infiltrate. Dictated by: Dictated on workstation # [id number] Dict: 04/09/221633 Trans: 04/09/221700 AS6 [id number] Interpreted by: ELDER FERRER MD Electronically signed by: ELDER FERRER MD 04/09/221700 Departure Impression Primary Impression: Nausea and vomiting Disposition: 03 SNF Condition: Stable Departure-Patient Inst. Decision time for Depature: 17:51 Referrals: NICO PATEL DO (PCP/Family) Primary Care Physician Patient Instructions: Nausea and Vomiting, Adult (DC), Nausea and Vomiting, Adult ED Add. Discharge Instructions: Plan: 1. Follow up with your primary care provider for any worsening symptoms. 2. May use Zofran as previously directed. If Zofran does not help you can use Phenergan suppository every 6 hours as needed. 3. Clear liquids until vomiting has stopped, then advance diet slowly. 4. Return to ER for any new, concerning, or worsening symptoms. All discharge instructions reviewed with patient and/or family. Voiced understanding. TAYLOR MADDOX MARKING ROOM SUPERVISOR Apr 09, 2022 16:21
[2022-04-09 16:24] LABS: ALBUMIN 3.7 GM/DL (3.2-4.5)
[2022-04-09 16:25] LABS: CHLORIDE 100 MMOL/L (98-107); POTASSIUM 4.6 MMOL/L (3.6-5.0); SODIUM 138 MMOL/L (135-145)
[2022-04-09 16:26] LABS: CALCIUM 9.2 MG/DL (8.5-10.1)
[2022-04-09 16:27] LABS: GLUCOSE 159 MG/DL (70-105); TOTAL PROTEIN 6.9 GM/DL (6.4-8.2)
[2022-04-09 16:28] LABS: CARBON DIOXIDE 30 MMOL/L (21-32)
[2022-04-09 16:29] LABS: BILIRUBIN,TOTAL 0.3 MG/DL (0.1-1.0)
[2022-04-09 16:30] LABS: ALKALINE PHOSPHATASE 78 U/L (40-136)
[2022-04-09 16:31] LABS: CREATININE SERUM 0.69 MG/DL (0.60-1.30); GFR ESTIMATED 91
[2022-04-09 16:32] LABS: BUN/CREATININE RATIO 30
[2022-04-09 16:33] LABS: ALANINE AMINOTRANSFERASE < 6 U/L (0-55)
--- NOTE | 2022-04-09 16:37 | Diagnostic Imaging Report ---
INDICATION: SOA COMPARISON: 08/31/2021. FINDINGS: Single frontal view of the chest demonstrates stable mild cardiomegaly. Pulmonary vasculature however is within normal limits. The lungs are well aerated and clear. No large pleural effusion or pneumothorax is seen. The visualized osseous structures show no acute abnormalities. IMPRESSION: 1. Cardiomegaly, but no evidence of failure or focal infiltrate. Dictated by: Dictated on workstation # [id number]
[2022-04-09] MEDS ORDERED: HOLD METFORMIN - RECEIVED CONTRAST 20 ML VIAL IV SCH (16:45)
[2022-04-09] MEDS ORDERED: NS 100 ML (IVPB) BAG IV ONE (16:45)
[2022-04-09] MEDS ORDERED: IOHEXOL 350 MG/ML 100 ML (OMNIPAQUE 350) VIAL IV ONE (16:45)
[2022-04-09] MEDS ORDERED: CATHETER FLUSH 10 ML SYR IV PRN (16:45)
--- NOTE | 2022-04-09 17:29 | Diagnostic Imaging Report ---
PROCEDURE: CT abdomen and pelvis without contrast. TECHNIQUE: Multiple contiguous axial images were obtained through the abdomen and pelvis without the use of intravenous contrast. Auto Exposure Controls were utilized during the CT exam to meet ALARA standards for radiation dose reduction. INDICATION: Coffee-ground emesis. Constipation. COMPARISON: CT abdomen and pelvis from 09/18/2013. FINDINGS: Lung bases are clear. The liver, gallbladder, pancreas, spleen, adrenals, left kidney, collecting systems and bladder are negative on this noncontrast exam. Nonobstructing calyceal tip renal stone in the right kidney measuring 0.3 cm. Reproductive structures are unremarkable. Normal appendix. No free intraperitoneal air or fluid. No lymphadenopathy. No evidence of bowel obstruction. Advanced spondylotic changes in the visualized spine. No acute osseous findings. Chronic right superior and inferior pubic rami fractures. IMPRESSION: 1. No acute CT findings in the abdomen or pelvis. 2. Nonobstructing calyceal tip renal stone in the right kidney measuring 0.3 cm. No ureteral stone or hydronephrosis. Dictated by: Dictated on workstation # [id number]
[2022-04-09] MEDS ORDERED: PROMETHAZINE INJ 25 MG/ML (PHENERGAN) AMP IM ONE (18:00)
[2022-04-09] MEDS ORDERED: RX-PHENERGAN 25 MG SUPP PPK#3 PR STA (18:42)
[2022-04-09 19:15] VITALS: BP 153/85
== END 2022-04-09 19:32 ==
LOC: EDUNIT# 15:41 → ER 15:43
DX: R11.2 Nausea with vomiting, unspecified (principal)
CPT/HCPCS: 36415; 71045; 74176; 80053; 82274; 85025

== ENCOUNTER 2022-07-22 11:16 | Observation (INO) | payer MEDICARE, MEDICAID ==
[~2022-07-22] VITALS: Ht 147.3 cm; Wt 90.1 kg
--- NOTE | 2022-07-22 11:31 | ED General ---
General Chief Complaint: Altered Mental Status Stated Complaint: ALTERED MENTAL STATUS Nursing Triage Note: PT TO ROOM 03 [facility] FROM [facility] WITH C/O ALTERED MENTAL STATUS STARTING AT BREAKFAST THIS MORNING. [facility] REPORTS PT IS BEING TX FOR UTI AND PCP TOLD [facility] STAFF THAT THE ABX NEEDED TO BE CHANGED. PT HAS BEEN ON ABX X4-5 DAYS. Source of Information: Patient Exam Limitations: No Limitations (BOBO CUELLAR APRN) History of Present Illness Date Seen by Provider: Jul 22, 2022 Time Seen by Provider: 11:20 Initial Comments Patient is a 76-year-old female who presents to the emergency department via EMS from her skilled nursing with altered mental status that began at breakfast this morning. Patient was last seen normal at 745 this a.m. but when caregivers returned at 0810 they noted she was significantly less responsive. Few hours later they called EMS for patient to be transported here. They report patient has UTI that is being treated with oral antibiotics. EMS state patient was able to answer questions in route but did seem to struggle forming words. They also state patient seemed to be somnolent but did arouse with verbal stimuli. (BOBO CUELLAR APRN) Allergies and Home Medications Allergies Coded Allergies: No Known Drug Allergies (Verified , 09/04/11) Patient Home Medication List Home Medication List Reviewed: Yes (BOBO CUELLAR APRN) Acetaminophen (Tylenol Extra Strength) 500 Mg Tablet, 1,000 MG PO Q6H PRN for PAIN, (Reported) Entered as Reported by: RAFAEL JORDAN on 08/25/15 0911 Last Action: Reviewed Albuterol Sulfate (Albuterol Sulfate) 1.25 Mg/3 Ml Vial.neb, 1.25 MG INH Q6H PRN for SHORTNESS OF BREATH, (Reported) Entered as Reported by: MALLORY MACHADO on 07/23/221346 Last Action: Reviewed Baclofen (Baclofen) 5 Mg Tablet, 5 MG PO BID, (Reported) Entered as Reported by: MALLORY MACHADO on 07/23/221346 Last Action: Reviewed Calcium Carbonate/Vitamin D3 (Calcium 600 + Vit D 200 Tablet) 600 Mg Calcium-5 Mcg (200 Unit) Tablet, 1 EACH PO DAILY, (Reported) Entered as Reported by: MALLORY MACHADO on 07/23/221346 Last Action: Reviewed Carbidopa/Levodopa (Carbidopa-Levo 25-250 mg Odt) 25 Mg-250 Mg Tab.rapdis, 0.5 EACH PO 5XD, (Reported) Entered as Reported by: MALLORY MACHADO on 07/23/221353 Last Action: Reviewed Carbidopa/Levodopa (Carbidopa-Levodopa 25-250 Tab) 25 Mg-250 Mg Tablet, 1 EACH PO 0600, (Reported) Entered as Reported by: MALLORY MACHADO on 07/23/221353 Last Action: Reviewed Carboxymethylcellulose Sodium (Refresh Celluvisc) 1 % Droper.gel, 1 DROP OU HS, (Reported) Entered as Reported by: MALLORY MACHADO on 07/23/221346 Last Action: Reviewed Cholecalciferol (Vitamin D3) (Vitamin D3) 50 Mcg (2000 Unit) Capsule, 50 MCG PO DAILY, (Reported) Entered as Reported by: MALLORY MACHADO on 07/23/221346 Last Action: Reviewed Docusate Sodium (Colace) 100 Mg Capsule, 100 MG PO DAILY PRN for CONSTIPATION, (Reported) Entered as Reported by: RAFAEL JORDAN on 08/25/15 0911 Last Action: Reviewed Ertapenem Sodium (Ertapenem) 1 Gram Vial, 1 GM IV DAILY Prescribed by: ELVA GUTIERREZ on 07/23/221356 Famotidine (Famotidine) 20 Mg Tablet, 20 MG PO DAILY, (Reported) Entered as Reported by: MALLORY MACHADO on 07/23/221346 Last Action: Reviewed Gabapentin (Gabapentin) 100 Mg Capsule, 200 MG PO BID, (Reported) Entered as Reported by: MALLORY MACHADO on 07/23/221346 Last Action: Reviewed Guaifenesin/Dextromethorphan (Mucinex Dm ER 600-30 mg Tablet) 600 Mg-30 Mg Tab.er.12h, 1 EACH PO Q12H PRN for COUGH/MUCUS, (Reported) Entered as Reported by: MALLORY MACHADO on 07/23/221346 Last Action: Reviewed L.acidoph & Paracasei,B.lactis (Probiotic) 10 Billion Cell Capsule, 1 EACH PO TID, (Reported) Entered as Reported by: MALLORY MACHADO on 07/23/221346 Last Action: Reviewed Lactulose (Lactulose) 10 Gram/15 Ml Solution, 30 ML PO Q12H PRN for CONSTIPATION-3RD LINE, (Reported) Entered as Reported by: MALLORY MACHADO on 07/23/221346 Last Action: Reviewed Linaclotide (Linzess) 72 Mcg Capsule, 72 MCG PO Q72H, (Reported) Entered as Reported by: MALLORY MACHADO on 07/23/221346 Last Action: Last Taken Edited Loperamide HCl (Imodium A-D) 2 Mg Capsule, 4 MG PO Q6H PRN for DIARRHEA, (Reported) Entered as Reported by: MALLORY MACHADO on 07/23/221346 Last Action: Reviewed Lorazepam (Ativan) 0.5 Mg Tablet, 0.5 MG PO BID, (Reported) Entered as Reported by: MALLORY MACHADO on 07/23/221346 Last Action: Reviewed Losartan Potassium (Losartan Potassium) 50 Mg Tablet, 50 MG PO DAILY, (Reported) Entered as Reported by: MALLORY MACHADO on 07/23/221346 Last Action: Reviewed Mag Hydrox/Al Hydrox/Simeth (Mylanta Suspension) 30 Ml Oral.susp, 30 ML PO Q6H PRN for HEARTBURN, (Reported) Entered as Reported by: MALLORY MACHADO on 07/23/221346 Last Action: Reviewed Melatonin (Melatonin) 3 Mg Tablet, 3 MG PO HS, (Reported) Entered as Reported by: MALLORY MACHADO on 07/23/221346 Last Action: Reviewed Menthol (Biofreeze) 4 % Gel..ml., 1 APPLIC TP Q8H PRN for PAIN-BREAKTHROUGH, (Reported) Entered as Reported by: MALLORY MACHADO on 07/23/221346 Last Action: Reviewed Mirabegron (Myrbetriq) 25 Mg Tab.er.24h, 25 MG PO DAILY, (Reported) Entered as Reported by: MALLORY MACHADO on 07/23/221346 Last Action: Reviewed Multivitamin (Multivitamin) 1 Each Tablet, 1 EACH PO DAILY, (Reported) Entered as Reported by: MALLORY MACHADO on 07/23/221346 Last Action: Reviewed Nystatin (Nystop) 100,000 Unit/Gram Powder, 1 APPLIC TP BID, (Reported) Entered as Reported by: MALLORY AMCHADO on 07/23/221346 Last Action: Reviewed Ondansetron HCl (Ondansetron HCl) 8 Mg Tablet, 8 MG PO Q6H PRN for N AUSEA/VOMITING-1ST LINE, (Reported) Entered as Reported by: MALLORY MACHADO on 07/23/221346 Last Action: Reviewed Pramipexole Di-HCl (Mirapex) 0.5 Mg Tablet, 0.5 MG PO BID, (Reported) Entered as Reported by: MALLORY MACHADO on 07/23/221346 Last Action: Reviewed Propylene Glycol (Systane Balance) 0.6 % Drops, 1 DROP OU QID, (Reported) Entered as Reported by: MALLORY MACHADO on 07/23/221346 Last Action: Reviewed Quetiapine Fumarate (Quetiapine Fumarate) 100 Mg Tablet, 50 MG PO 1200, (Reported) Entered as Reported by: MALLORY MACHADO on 07/23/221346 Last Action: Reviewed Quetiapine Fumarate (Quetiapine Fumarate) 200 Mg Tablet, 200 MG PO HS, (Reported) Entered as Reported by: MALLORY MACHADO on 07/23/221346 Last Action: Reviewed Simethicone (Simethicone) 125 Mg Capsule, 125 MG PO TID, (Reported) Entered as Reported by: MALLORY MACHADO on 07/23/221346 Last Action: Reviewed Tramadol HCl (Tramadol HCl) 50 Mg Tablet, 50 MG PO Q6H PRN for PAIN-MODERATE (5- 7), (Reported) Entered as Reported by: MALLORY MACHADO on 07/23/221346 Last Action: Reviewed Tramadol HCl (Tramadol HCl) 50 Mg Tablet, 50 MG PO HS, (Reported) Entered as Reported by: MALLORY MACHADO on 07/23/221346 Last Action: Reviewed Discontinued Medications Albuterol Sulfate (Albuterol Sulfate) 2.5 Mg/3 Ml Vial.neb, 2.5 MG IH Q6H PRN for SHORTNESS OF BREATH, (Reported) Discontinued Reason: Prescription changed Entered as Reported by: SUMIT VINCENT on 08/05/15 0916 Amantadine Hcl (Amantadine) 100 Mg Tablet, 100 MG PO DAILY, (Reported) Discontinued Reason: No Longer Taking Entered as Reported by: SUMIT VINCENT on 01/27/151056 Last Action: Discontinued Calcium Carbonate/Vitamin D3 (Omkar-600 W/Vit D Tablet) 1 Tab Tablet, 1 TAB PO DAILY, (Reported) Discontinued Reason: No Longer Taking Entered as Reported by: BRIE CAMACHO on 02/18/10 1729 Last Action: Discontinued Carbidopa/Levodopa (Carbidopa-Levo 25-250 Tab) 1 Each Tablet, 1 TAB PO SIX TIMES DAILY, (Reported) Discontinued Reason: No Longer Taking Entered as Reported by: SUMIT VINCENT on 01/27/151056 Last Action: Discontinued Cefuroxime Axetil (Cefuroxime) 250 Mg Tablet, 250 MG PO BID Discontinued Reason: No Longer Taking Prescribed by: LATASHA GOFF on 10/24/18 171 Last Action: Discontinued Citalopram Hydrobromide (Citalopram Hbr) 10 Mg Tablet, 10 MG PO HS, (Reported) Discontinued Reason: No Longer Taking Entered as Reported by: SUMIT VINCENT on 01/27/151056 Last Action: Discontinued Cyclobenzaprine Hcl (Cyclobenzaprine Hcl) 10 Mg Tablet, 10 MG PO BID, (Reported) Discontinued Reason: No Longer Taking Entered as Reported by: BELLO OWENS on 11/17/12 1844 Last Action: Discontinued Duloxetine Hcl (Cymbalta) 60 Mg Capsule.dr, 60 MG PO EVERY OTHER DAY, (Reported) Discontinued Reason: No Longer Taking Entered as Reported by: SUMIT VINCENT on 01/27/151056 Last Action: Discontinued Duloxetine Hcl (Cymbalta Capsule) 30 Mg Cap, 30 MG PO EVERY OTHER DAY, (Reported) Discontinued Reason: No Longer Taking Entered as Reported by: SUMIT VINCENT on 01/27/151056 Last Action: Discontinued Estrogens Conjugated (Premarin) 30 Gm Cr, 0.3 APPFUL VG 1-2 TIMES WEEKLY PRN for PAIN, (Reported) Discontinued Reason: No Longer Taking Entered as Reported by: RAFAEL JORDAN on 08/25/15 0911 Last Action: Discontinued Hydrocodone Bit/Acetaminophen (Lortab 7.5 Mg Tablet) 1 Each Tablet, 1 TAB PO Q4H PRN for PAIN Discontinued Reason: No Longer Taking Prescribed by: RONNY PEREA on 09/01/15 0889 Last Action: Discontinued Hypromellose (Systane Gel) 10 Gm Gel..gram., 1 DROP OU HS, (Reported) Discontinued Reason: No Longer Taking Entered as Reported by: SUMIT VINCENT on 08/05/15 0944 Last Action: Discontinued Lactobacillus Combination No.4 (Probiotic) 1 Each Capsule, 1 CAP PO AC, (Reported) Discontinued Reason: No Longer Taking Entered as Reported by: SUMIT VINCENT on 01/27/15 1100 Last Action: Discontinued Lactulose (Lactulose) 10 Gm/15 Ml Solution, 10 GM PO Q12H PRN for CONSTIPATION, (Reported) Discontinued Reason: No Longer Taking Entered as Reported by: JOHN MINAYA on 04/30/15 1347 Last Action: Discontinued Lisinopril (Lisinopril) 10 Mg Tablet, 10 MG PO DAILY Discontinued Reason: No Longer Taking Prescribed by: RONNY PEREA on 09/01/15 0858 Last Action: Discontinued Loperamide HCl (Imodium A-D) 2 Mg Tablet, 2 MG PO Q6H PRN for DIARRHEA, (Reported) Discontinued Reason: No Longer Taking Entered as Reported by: RAFAEL JORDAN on 08/25/15 0911 Last Action: Discontinued Lorazepam (Ativan) 0.5 Mg Tablet, 0.5 MG PO BID, (Reported) Discontinued Reason: No Longer Taking Entered as Reported by: SUMIT VINCENT on 01/27/15 1057 Last Action: Discontinued Lorazepam (Lorazepam) 0.5 Mg Tablet, 0.5 MG PO BID Discontinued Reason: No Longer Taking Prescribed by: RONNY PEREA on 09/01/15 0858 Last Action: Discontinued Mirabegron (Myrbetriq) 50 Mg Tab.er.24h, 50 MG PO DAILY, (Reported) Discontinued Reason: No Longer Taking Entered as Reported by: SUMIT VINCENT on 01/27/15 1100 Last Action: Discontinued Multivitamins (Multiple Vitamin) 1 Tab Tablet, 1 TAB PO DAILY, (Reported) Discontinued Reason: No Longer Taking Entered as Reported by: CONRADO ROSALES on 06/26/09 0241 Last Action: Discontinued Ondansetron (Ondansetron Odt) 4 Mg Tab.rapdis, 4 MG PO Q6H PRN for NAUSEA/VOMITING-1ST LINE Discontinued Reason: No Longer Taking Prescribed by: TAYLOR MADDOX on 08/03/21 115 Last Action: Discontinued Ondansetron (Ondansetron Odt) 8 Mg Tab.rapdis, 8 MG PO Q6H PRN for NAUSEA/VOMITING Discontinued Reason: No Longer Taking Prescribed by: LATASHA GOFF on 08/31/211731 Last Action: Discontinued Oseltamivir Phosphate (Tamiflu) 75 Mg Cap, 75 MG PO BID Discontinued Reason: No Longer Taking Prescribed by: LATASHA GOFF on 08/31/211731 Last Action: Discontinued Oxycodone HCl/Acetaminophen (Oxycodone-Acetaminophen 5-325) 1 Each Tablet, 1 EACH PO Q4H PRN for PAIN-MODERATE Discontinued Reason: No Longer Taking Prescribed by: LATASHA GOFF on 10/24/181709 Last Action: Discontinued Pantoprazole Sodium (Pantoprazole Sodium) 40 Mg Tablet.dr, 40 MG PO DAILY Discontinued Reason: No Longer Taking Prescribed by: TAYLOR MADDOX on 08/03/211152 Last Action: Discontinued Pramipexole Di-Hcl (Mirapex) 1.5 Mg Tablet, 1.5 MG PO BID, (Reported) Discontinued Reason: No Longer Taking Entered as Reported by: POPEYE BARRIOS on 11/29/12 1012 Last Action: Discontinued Prednisone (Prednisone) 10 Mg Tab, 10 MG PO DAILY Discontinued Reason: No Longer Taking Prescribed by: RONNY PEREA on 09/01/15 0858 Last Action: Discontinued Prednisone (Prednisone) 20 Mg Tab, 40 MG PO DAILY Discontinued Reason: No Longer Taking Prescribed by: LATASHA GOFF on 10/24/181709 Last Action: Discontinued Propylene Glycol (Systane Balance) 10 Ml Drops, 1 DROP OU TID, (Reported) Discontinued Reason: No Longer Taking Entered as Reported by: SUMIT VINCENT on 08/05/15 0944 Last Action: Discontinued Simethicone (Simethicone) 125 Mg Capsule, 125 MG PO TID, (Reported) Discontinued Reason: No Longer Taking Entered as Reported by: SUMIT VINCENT on 01/27/15 1057 Last Action: Discontinued Trimethoprim (Trimethoprim) 100 Mg Tablet, 100 MG PO HS, (Reported) Discontinued Reason: No Longer Taking Entered as Reported by: SUMIT VINCENT on 01/27/15 1100 Last Action: Discontinued Review of Systems Review of Systems Constitutional: no symptoms reported EENTM: no symptoms reported Respiratory: no symptoms reported Cardiovascular: no symptoms reported Gastrointestinal: no symptoms reported Genitourinary: no symptoms reported Musculoskeletal: no symptoms reported Skin: no symptoms reported Psychiatric/Neurological: See HPI Hematologic/Lymphatic: No Symptoms Reported Immunological/Allergic: no symptoms reported (BOBO CUELLAR APRN) Past Ojjwvcy-Nkyzjz-Uqubyy Hx Patient Social History Tobacco Use?: No Smoking Status: Never a Smoker Smokeless Tobacco Frequency: Never a User Use of E-Cig and/or Vaping dev: No Use of E-Cig and/or Vaping Thony: Never a User Substance use?: No Alcohol Use?: No Pt feels they are or have been: No (BOBO CUELLAR APRN) Immunizations Up To Date Tetanus Booster (TDap): Unknown PED Vaccines UTD: No First/Initial COVID19 Vaccinat: UNKNOWN Second COVID19 Vaccination Greg: UNKNOWN Third COVID19 Vaccination Date: UNKNOWN (BOBO CUELLAR APRN) Seasonal Allergies Seasonal Allergies: No (BOBO CUELLAR APRN) Past Medical History Surgeries: Yes (MMK (Bladder lift), CATARACTS, left tkr, CARPAL TUNNEL) Respiratory: No (FREQUENT COLDS-LINKED TO PARKINSONS) Cardiac: Yes (SYSTOLIC/DIASTOLIC CONGESTIVE HF) Neurological: Yes Parkinson's Disease Reproductive Disorders: No 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 Sexually Transmitted Disease: No HIV/AIDS: No Genitourinary: Yes Neurogenic Bladder, UTI-Chronic Gastrointestinal: Yes (HEP C) Gastroesophageal Reflux, Liver Disease/Jaundice, Hepatitis, Cirrhosis Musculoskeletal: Yes (BONE SPURS, DETERIORATED BONES IN SPINE, INJECTIONS, OSTEOARTHRITIS' LYMPHE) Arthritis Endocrine: No Cataract Loss of Vision: Denies Hearing Impairment: Denies Cancer: No Psychosocial: Yes (PSYCHOTIC DISORDER) Sleep Difficulties, Anxiety, Depression Integumentary: Yes (HX OF CELLULITITS IN LEGS ) Blood Disorders: Yes (HEP C) Adverse Reaction/Blood Tranf: No (BOBO CUELLAR APRN) Family Medical History Alcoholism 19 FATHER Cancer G8 SISTER (BREAST) Dementia 19 MOTHER Family history: Arthritis 19 MOTHER Family history: Diabetes mellitus 19 MOTHER No Family History of: Abdominal aortic aneurysm Congenital heart disease Family history: Alzheimer's disease Family history: Asthma Family history: Cardiovascular disease Family history: Gastrointestinal disease Family history: Hypertension Family history: Thyroid disorder Hereditary disease History of - anemia Myocardial infarction Parkinson's disease Prostate cancer Psychotic disorder Seizure disorder Stroke No Pertinent Family Hx (BOBO CUELLAR APRN) Physical Exam Vital Signs Vital Signs - First Documented 07/22/22 11:20 Temp 36.4 Pulse 77 Resp 16 B/P (MAP) 106/87 (93) O2 Delivery Room Air (MANJINDER DANIEL MD) Vital Signs Capillary Refill : Less Than 3 Seconds (BOBO CUELLAR APRN) Height, Weight, BMI Height: 5'2.00" Weight: 220lbs. 16.0oz. [id number]; 41.00 BMI Method:Estimated General Appearance: No Apparent Distress, WD/WN HEENT: PERRL/EOMI, TMs Normal, Normal ENT Inspection, Pharynx Normal Neck: Full Range of Motion, Normal Inspection, Non Tender, Supple Respiratory: Chest Non Tender, Lungs Clear, Normal Breath Sounds, No Accessory Muscle Use, No Respiratory Distress Cardiovascular: Regular Rate, Rhythm Gastrointestinal: Non Tender, Soft Skin: Normal Color, Warm/Dry Comments Patient is somnolent on exam but does arouse to verbal stimuli; patient is alert to person but disoriented to place and time; no focal asymmetrical weakness is noted; no facial asymmetry noted (BOBO CUELLAR APRN) Progress/Results/Core Measures Suspected Sepsis SIRS Temperature: Pulse: 77 Respiratory Rate: 16 Laboratory Tests 07/22/22 12:04: White Blood Count 11.5H Blood Pressure 106 /87 Mean: 93 Laboratory Tests 07/22/22 12:04: Creatinine 0.75, INR Comment 0.9, Platelet Count 168, Total Bilirubin 0.4 (BOBO CUELLAR APRN) Results/Orders Lab Results Laboratory Tests Test 07/22/22 11:36 07/22/22 12:04 07/22/22 12:18 Range/Units Glucometer 110 70-110 MG/DL White Blood Count 11.5 H 4.3-11.0 10^3/uL Red Blood Count 4.35 3.80-5.11 10^6/uL Hemoglobin 13.1 11.5-16.0 g/dL Hematocrit 40 35-52 % Mean Corpuscular Volume 92 80-99 fL Mean Corpuscular Hemoglobin 30 25-34 pg Mean Corpuscular Hemoglobin Concent 33 32-36 g/dL Red Cell Distribution Width 13.9 10.0-14.5 % Platelet Count 168 130-400 10^3/uL Mean Platelet Volume 9.7 9.0-12.2 fL Immature Granulocyte % (Auto) 0 % Neutrophils (%) (Auto) 76 H 42-75 % Lymphocytes (%) (Auto) 14 12-44 % Monocytes (%) (Auto) 8 0-12 % Eosinophils (%) (Auto) 1 0-10 % Basophils (%) (Auto) 0 0-10 % Neutrophils # (Auto) 8.8 H 1.8-7.8 10^3/uL Lymphocytes # (Auto) 1.6 1.0-4.0 10^3/uL Monocytes # (Auto) 1.0 0.0-1.0 10^3/uL Eosinophils # (Auto) 0.1 0.0-0.3 10^3/uL Basophils # (Auto) 0.0 0.0-0.1 10^3/uL Immature Granulocyte # (Auto) 0.1 0.0-0.1 10^3/uL Prothrombin Time 12.8 12.2-14.7 SEC INR Comment 0.9 0.8-1.4 Activated Partial Thromboplast Time 24 24-35 SEC D-Dimer 0.84 H 0.00-0.49 UG/ML Sodium Level 136 135-145 MMOL/L Potassium Level 4.4 3.6-5.0 MMOL/L Chloride Level 99 98-107 MMOL/L Carbon Dioxide Level 28 21-32 MMOL/L Anion Gap 9 5-14 MMOL/L Blood Urea Nitrogen 15 7-18 MG/DL Creatinine 0.75 0.60-1.30 MG/DL Estimat Glomerular Filtration Rate 83 BUN/Creatinine Ratio 20 Glucose Level 125 H 70-105 MG/DL Calcium Level 9.6 8.5-10.1 MG/DL Corrected Calcium 10.0 8.5-10.1 MG/DL Total Bilirubin 0.4 0.1-1.0 MG/DL Aspartate Amino Transf (AST/SGOT) 11 5-34 U/L Alanine Aminotransferase (ALT/SGPT) 11 0-55 U/L Alkaline Phosphatase 77 40-136 U/L Troponin I < 0.028 <0.028 NG/ML Total Protein 6.6 6.4-8.2 GM/DL Albumin 3.5 3.2-4.5 GM/DL Urine Color YELLOW Urine Clarity SLIGHTLY CLOUDY Urine pH 6.5 5-9 Urine Specific [place] 1.015 L 1.016-1.022 Urine Protein NEGATIVE NEGATIVE Urine Glucose (UA) NEGATIVE NEGATIVE Urine Ketones NEGATIVE NEGATIVE Urine Nitrite NEGATIVE NEGATIVE Urine Bilirubin NEGATIVE NEGATIVE Urine Urobilinogen NORMAL < = 1.0 MG/DL Urine Leukocyte Esterase 2+ H NEGATIVE Urine RBC (Auto) 3+ H NEGATIVE Urine RBC 10-25 H /HPF Urine WBC >100 H /HPF Urine Squamous Epithelial Cells /HPF Urine Crystals NONE /LPF Urine Bacteria MODERATE H /HPF Urine Casts NONE /LPF Urine Mucus NEGATIVE /LPF Urine Culture Indicated YES (MANJINDER DANIEL MD) Micro Results Microbiology 07/22/22 Urine Culture - Preliminary, Resulted Escherichia coli (MANJINDER DANIEL MD) Vital Signs/I&O 07/22/22 11:20 Temp 36.4 Pulse 77 Resp 16 B/P (MAP) 106/87 (93) O2 Delivery Room Air (MANJINDER DANIEL MD) Vital Signs/I&O Capillary Refill : Less Than 3 Seconds (BOBO CUELLAR APRN) Blood Pressure Mean: 93 Progress Note : Progress Note Patient is nontoxic and well-hydrated on exam. Vital signs are reassuring. Patient does have some difficulty forming words and is somnolent upon initial exam. No asymmetrical weakness noted in extremities. Sensation appears intact. Stroke protocol was initiated due to patient's acute onset of altered mental status. Orders placed for CBC, CMP, coagulation studies, D-dimer, troponin, EKG, chest x-ray, and head CT. Getting IV access was difficult and I placed an ultrasound-guided IV. CBC and CMP largely reassuring without any significant abnormality other than a very mild leukocytosis. D-dimer is slightly elevated even after age adjustment. EKG without acute ischemic changes or arrhythmias. Coagulation studies unr emarkable. Chest x-ray acutely negative. CT of the head and CTA of the head/neck without acute concerning findings. Nursing attempted to place a Arambula on the patient and this led to her being much more awake. She did have some pinpoint pupils on initial presentation and thus a modest dose of Narcan was given with no significant change. She also seemed to have a preferential upward gaze initially but this seemed to spontaneously resolve. Shortly after the Arambula was attempted the patient was much more awake. Due to the acute onset of altered mental status, we will admit the patient to the hospitalist for further evaluation and treatment. I spoke with Dr. Gutierrez with hospital medicine who kindly agreed to admit the patient. Patient was updated on plan of care and understanding verbalized. (BOBO CUELLAR APRN) ECG EKG : EKG Time: 11:40 Rate: 77 Rhythm: PVC ECG Impression: Nonspecific Changes (BOBO CUELLAR APRN) Departure Impression Primary Impression: Altered mental status Qualified Codes: R41.82 - Altered mental status, unspecified Additional Impression: UTI (urinary tract infection) Qualified Codes: N39.0 - Urinary tract infection, site not specified; R31.9 - Hematuria, unspecified Disposition: 09 ADMITTED INPATIENT Condition: Stable Admissions Decision to Admit Reason: Admit from ER (General) Decision to Admit/Date: Jul 22, 2022 Time/Decision to Admit Time: 14:00 (BOBO CUELLAR APRN) Departure-Patient Inst. Referrals: NICO PATEL DO (PCP/Family) Primary Care Physician Scripts Ertapenem Sodium (Ertapenem) 1 Gram Vial 1 GM IV DAILY, #7 EA Prov: ELVA GUTIERREZ MD 07/23/22 PHYSICIAN ATTESTATION NOTE: I was present in the ER while SUPERVISOR ENGINE REPAIR / PA saw the patient, but I was not involved in the care, exam, or management of the patient. (MANJINDER DANIEL MD) Stroke Onset of Symptoms Date of Onset of Symptoms: Jul 22, 2022 Time of Symptom Onset: 08:10 Onset of Symptoms: Yes (BOBO CUELLAR APRN) NIH Stroke Scale Assessment Select: Initial Level of Consciousness: 1=Aroused by mild stimuli (1), Level of Consciousness-Questions: 1=Answers one question (1), LOC Commands: 0=Performs both tasks (0), Gaze: Normal (0), Visual Fontaine: 0=No visual loss (0), Facial Movement (Facial Paresis): 0=Normal symmetrical mnt (0), Motor Function-Arms Right: 0=No drift (0), Motor Function-Arms Left: 0=No drift (0), Motor Function-Legs Right: 1=Drift (1), Motor Function-Legs Left: 1=Drift (1), Limb Ataxia: 0=Absent (0), Sensory: 0=Normal:no loss (0), Best Language: 1=Mild to moderat aphasia (1), Dysarthria: 0=Normal (0), Extinction & Inattention: 0=No abnormality (0), Total: 5 Stroke Thrombolytic Exclusion Age 18 or Over: No Acute intenal hemorrhage: No History of CVA: No Uncontrolled Coagulation Defec: No Intracranial Hemorrhage: No Severe Hypertension: No GI or Bleed: No Subarachnoid Hemorrhage: No Intracranial Neoplasm/Aneurysm: No Oral Anticoagulants: No Surgery or Trauma: No Puncture of Non-Compressible V: No Recent CPR: No Diabetic Hemorrhagic Retinopat: No Organ Biopsy: No Recent Obstetric Delivery: No (BOBO CUELLAR APRN) BOBO CUELLAR APRN Jul 22, 2022 11:31 MANJINDER DANIEL MD Jul 24, 2022 14:18
--- NOTE | 2022-07-22 12:00 | Diagnostic Imaging Report ---
Indication: Stroke. Frontal chest obtained at 1144 a.m. There is cardiomegaly and mild central vascular prominence. There is no focal consolidation or pneumothorax or pleural fluid. IMPRESSION: Cardiomegaly and mild central vascular prominence. No overt consolidation or pleural fluid. Dictated by: Dictated on workstation # [id number]
[2022-07-22 12:12] LABS: BASOPHILS % (AUTO) 0 % (0-10); EOSINOPHILS # (AUTO) 0.1 10^3/uL (0.0-0.3); EOSINOPHILS % (AUTO) 1 % (0-10); HEMATOCRIT 40 % (35-52); HEMOGLOBIN 13.1 g/dL (11.5-16.0); LYMPHOCYTES # (AUTO) 1.6 10^3/uL (1.0-4.0); LYMPHOCYTES % (AUTO) 14 % (12-44); MEAN CORPUSCULAR HEMOGLOBIN 30 pg (25-34); MEAN CORPUSCULAR HGB CONC 33 g/dL (32-36); MEAN CORPUSCULAR VOLUME 92 fL (80-99); MEAN PLATELET VOLUME 9.7 fL (9.0-12.2); MONOCYTES % (AUTO) 8 % (0-12); NEUTROPHILS # (AUTO) 8.8 10^3/uL (1.8-7.8); NEUTROPHILS % (AUTO) 76 % (42-75); PLATELET COUNT 168 10^3/uL (130-400); WHITE BLOOD COUNT 11.5 10^3/uL (4.3-11.0)
[2022-07-22] MEDS ORDERED: NALOXONE 0.4 MG/ML 1 ML (NARCAN) VIAL IV ONE (12:15)
[2022-07-22 12:24] LABS: ALBUMIN 3.5 GM/DL (3.2-4.5)
[2022-07-22 12:25] LABS: CHLORIDE 99 MMOL/L (98-107); POTASSIUM 4.4 MMOL/L (3.6-5.0); SODIUM 136 MMOL/L (135-145)
[2022-07-22 12:26] LABS: CALCIUM 9.6 MG/DL (8.5-10.1); FIBRIN DEGRADATION PRODUCTS 0.84 UG/ML (0.00-0.49); INR 0.9 (0.8-1.4); PROTHROMBIN TIME PATIENT 12.8 SEC (12.2-14.7)
[2022-07-22 12:27] LABS: GLUCOSE 125 MG/DL (70-105); TOTAL PROTEIN 6.6 GM/DL (6.4-8.2)
[2022-07-22 12:28] LABS: CARBON DIOXIDE 28 MMOL/L (21-32)
[2022-07-22 12:29] LABS: BILIRUBIN,TOTAL 0.4 MG/DL (0.1-1.0)
[2022-07-22 12:30] LABS: ALKALINE PHOSPHATASE 77 U/L (40-136)
[2022-07-22 12:31] LABS: CREATININE SERUM 0.75 MG/DL (0.60-1.30); GFR ESTIMATED 83
[2022-07-22 12:32] LABS: BUN/CREATININE RATIO 20
[2022-07-22 12:34] LABS: ALANINE AMINOTRANSFERASE 11 U/L (0-55)
[2022-07-22] MEDS ORDERED: HOLD METFORMIN - RECEIVED CONTRAST 20 ML VIAL IV SCH (12:45)
[2022-07-22] MEDS ORDERED: IOHEXOL 350 MG/ML 100 ML (OMNIPAQUE 350) VIAL IV ONE (12:45)
[2022-07-22] MEDS ORDERED: NS 100 ML (IVPB) BAG IV ONE (12:45)
[2022-07-22 12:48] LABS: BILIRUBIN,URINE NEGATIVE (NEGATIVE); CLARITY,URINE SLIGHTLY CLOUDY; COLOR,URINE YELLOW; GLUCOSE, URINE (UA) NEGATIVE (NEGATIVE); KETONES,URINE NEGATIVE (NEGATIVE); LEUKOCYTE ESTERASE ,URINE 2+ (NEGATIVE); NITRITE,URINE NEGATIVE (NEGATIVE); PH,URINE 6.5 (5-9); PROTEIN,URINE NEGATIVE (NEGATIVE)
[2022-07-22 12:49] LABS: BACTERIA,URINE MODERATE /HPF; WBC,URINE >100 /HPF
--- NOTE | 2022-07-22 13:52 | Diagnostic Imaging Report ---
PROCEDURE: CT angiography of the head and CT angiography of the neck with and without contrast. TECHNIQUE: Contiguous noncontrast images were obtained from the skull base through the vertex. After intravenous contrast administration, helical CT angiography of the neck was performed. Source data was reformatted into 3D MIP projections. Delayed post contrast acquisition was also obtained. Auto Exposure Controls were utilized during the CT exam to meet ALARA standards for radiation dose reduction. INDICATION: Altered mental status. Precontrast and delayed postcontrast enhanced head CT showed no hemorrhage, hydrocephalus, edema, mass or abnormal enhancement. CT angiogram neck: Cervical vertebral arteries patent, codominant and unremarkable. The bilateral common, internal and major external carotid arterial branches widely patent. No significant stenosis. No arterial dissection. Extensive degenerative changes to the spine and visualized shoulder is noted. CT angiogram head: The intradural vertebral arteries and basilar are widely patent. The right RESEARCH CHEMICAL ENGINEER is in origin. Both mixing technician widely patent, non-stenosing calcified plaques at the cavernous segments of the intracranial carotids. The anterior and middle cerebral arterial segments and primary branches patent. No thrombus or filling defect. No aneurysm or vascular malformation. IMPRESSION: Unremarkable CT angiographic study of the neck and head. Dictated by: Dictated on workstation # [id number]
[2022-07-22] MEDS ORDERED: cefTRIAXone 1 GM PRE-MIX 50 ML IV ONE (14:15)
--- NOTE | 2022-07-22 16:03 | History & Physical-Hospitalist ---
NORY ALMARAZ 07/22/22 1603: History of Present Illness HPI/Chief Complaint 76 year old female with a PMH of systolic/diastolic HF, Parkinson Disease, Hep C, GERD, Anxiety, and depression who presented via EMS from long term for altered mental status. She has had a UTI for the past week and has been receiving abx for the past 4-5 days per ED report. She is a poor historian and wasn't able to answer the majority of my questioning. No family was present with her and notes sent from the [place] [facility] are difficult to read. She is oriented to self and place, but not to time. She reports fealing tired and mild lower abd pain. Denies CP, SOB, pain in arms or legs Source: patient, EMS notes reviewed Date Seen 07/22/22 Time Seen by a Provider: 15:20 Attending Physician Leroy Hartmann DO PCP Admitting Physician: Elva Gutierrez MD Attending Physician: Elva Gutierrez MD Referring Physician Date of Admission Jul 22, 2022 at 14:07 Home Medications & Allergies Home Medications Reviewed patient Home Medication Reconciliation performed by pharmacy medication reconciliations automotive engineering technician and/or nursing. Patients Allergies have been reviewed. Allergies Allergies Coded Allergies No Known Drug Allergies (Verified09/04/11) Past Quclzab-Ynfugt-Twnvao Hx Patient Social History Tobacco Use?: No Smoking Status: Never a Smoker Smokeless Tobacco Frequency: Never a User Use of E-Cig and/or Vaping dev: No Use of E-Cig and/or Vaping Thony: Never a User Substance use?: No Alcohol Use?: No Pt feels they are or have been: No Immunizations Up To Date Date of Influenza Vaccine: Mar 27, 2015 First/Initial COVID19 Vaccinat: UNKNOWN Second COVID19 Vaccination Greg: UNKNOWN Tetanus Booster (TDap): Unknown PED Vaccines UTD: No Date of Pneumonia Vaccine: Apr 27, 2012 Seasonal Allergies Seasonal Allergies: No Current Status Advance Directive Location: Copy placed in chart Communicates: Verbally Primary Language: Khmer Preferred Spoken Language: Khmer Is interpretation needed?: No Implanted or Applied Medical D: None Past Medical History Surgeries: Eye Surgery (cataract), Orthopedic (left total knee) 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 Sexually Transmitted Disease: No HIV/AIDS: No Neurogenic Bladder, UTI-Chronic Gastroesophageal Reflux, Liver Disease/Jaundice, Hepatitis, Cirrhosis Arthritis Cataract Loss of Vision: Denies Hearing Impairment: Denies Sleep Difficulties, Anxiety, Depression Blood Disorders: Yes (HEP C) Adverse Reaction/Blood Tranf: No Family Medical History Alcoholism 19 FATHER Cancer G8 SISTER (BREAST) Dementia 19 MOTHER Family history: Arthritis 19 MOTHER Family history: Diabetes mellitus 19 MOTHER No Family History of: Abdominal aortic aneurysm Congenital heart disease Family history: Alzheimer's disease Family history: Asthma Family history: Cardiovascular disease Family history: Gastrointestinal disease Family history: Hypertension Family history: Thyroid disorder Hereditary disease History of - anemia Myocardial infarction Parkinson's disease Prostate cancer Psychotic disorder Seizure disorder Stroke Review of Systems Respiratory: No cough, No dyspnea on exertion Cardiovascular: No chest pain Gastrointestinal: abdominal pain (mild lower abd pain); No nausea, No vomiting Genitourinary: No dysuria Musculoskeletal: No back pain Skin: no symptoms reported Psychiatric/Neurological: No Symptoms Reported Other Patient has AMS and thorough ROS was difficult to obtain Physical Exam Physical Exam Vital Signs Vital Signs - First Documented 07/22/22 11:20 Temp 36.4 Pulse 77 Resp 16 B/P (MAP) 106/87 (93) O2 Delivery Room Air Capillary Refill : Less Than 3 Seconds Height, Weight, BMI Height: 5'2.00" Weight: 220lbs. 16.0oz. [id number]; 41.00 BMI Method:Estimated General Appearance: No Apparent Distress, Obese, Other (Patient appears tired and is oriented to place, but has difficulty answering questions. frequently nods off during questioning) HEENT: PERRL/EOMI, Moist Mucous Membranes Neck: Non Tender, Supple Respiratory: Chest Non Tender, Lungs Clear, No Accessory Muscle Use, No Resp iratory Distress Cardiovascular: Regular Rate, Rhythm, No Murmur, Normal Peripheral Pulses Gastrointestinal: Normal Bowel Sounds, Soft, Tenderness (mild suprapubic tenderness) Extremity: Normal Capillary Refill, Non Tender, No Calf Tenderness, No Pedal Edema Neurologic/Psychiatric: Other (oriented to self and place only. Difficulties answering questions. poor historian.) Skin: Normal Color, Warm/Dry Lymphatic: No Adenopathy Results Results/Procedures Labs Laboratory Tests 07/22/22 12:04 Patient resulted labs reviewed. Assessment/Plan Admission Diagnosis Altered Mental Status secondary to UTI Assessment and Plan AMS - probable encephalopathy secondary to UTI -Urinalysis in ED revealed likely UTI and was sent for culture. Ceftriaxone 1g IV Q24 initiated in ED. Cr of .75 appears to be baseline from previous ED visits -Head CTA unremarkable for acute processes. -1 L normal saline bolus given in ED. Will initiate maintenance Fluids w/ Normal saline Leukocytosis -Thought to be secondary to UTI. CXR showed mild central vascular prominence but no signs of acute pulmonary infiltrates/process Elevated D dimer (marginal) -D dimer 0.84. Normal for her per age is .74. Will treat UTI and monitor for now. Parkinson Disease Hx HEP C Systolic/Diastolic HF -Records sent with patient are difficult to read. Unclear what her active home medications are. Will treat UTI and work to get legible records. Will restart home meds as appropriate and monitor labs in the meantime. Clinical Quality Measures Stroke: Date of last known well: Jul 22, 2022 Time of last known well: 08:10 ELVA GUTIERREZ MD 07/23/22 1433: Past Rqatzrl-Qqthgy-Rjyqjv Hx Family Medical History Alcoholism 19 FATHER Cancer G8 SISTER (BREAST) Dementia 19 MOTHER Family history: Arthritis 19 MOTHER Family history: Diabetes mellitus 19 MOTHER No Family History of: Abdominal aortic aneurysm Congenital heart disease Family history: Alzheimer's disease Family history: Asthma Family history: Cardiovascular disease Family history: Gastrointestinal disease Family history: Hypertension Family history: Thyroid disorder Hereditary disease History of - anemia Myocardial infarction Parkinson's disease Prostate cancer Psychotic disorder Seizure disorder Stroke Review of Systems Constitutional: see HPI Assessment/Plan Admission Diagnosis Admission Status: Observation Assessment and Plan Patient has been treated with oral antibiotics but despite this has continued to worsen at the [place] [facility]. I discussed with Dr Hartmann and outside cultures show ESBl e coli in urine with sensitivities to Merrem. Will switch to Merrem while admitted. Hopefully if she does well we can arrange for IV abx at her facility and DC home tomorrow. Supervisory-Addendum Brief Verification & Attestation Participated in pt care: history, MDM, physical Personally performed: exam, history, MDM, supervision of care Care discussed with: Medical Student Procedures: n/a Results interpretation: Verified all documentation Verification and Attestation of Medical Student E/M Service A medical student performed and documented this service in my presence. I reviewed and verified all information documented by the medical student and made modifications to such information, when appropriate. I personally performed the physical exam and medical decision making. Elva Gutierrez, Jul 23, 2022,14:31 NORY ALMARAZ Jul 22, 2022 16:03 ELVA GUTIERREZ MD Jul 23, 2022 14:33
[2022-07-22] MEDS ORDERED: MEROPENEM 1,000 MG in NS (IVPB) 100 ML IV SCH (16:30)
[2022-07-22] MEDS ORDERED: polyethylene glycoL POWDER 17 GM (MIRALAX) PACK PO PRN (16:30)
[2022-07-22] MEDS ORDERED: ANTACID SUSP 30 ML UDC (MYLANTA) PO PRN (16:30)
[2022-07-22] MEDS ORDERED: CALCIUM CARBONATE 500 MG (TUMS) TAB.CHEW PO PRN (16:30)
[2022-07-22] MEDS ORDERED: NS IV 1000 ML 1,000 ML IV SCH (16:30)
[2022-07-22] MEDS ORDERED: ONDANSETRON 4 MG/2 ML (SDV) Z0FRAN IV PRN (16:30)
[2022-07-22] MEDS ORDERED: MELATONIN 3 MG TABLET PO PRN (16:30)
[2022-07-22 16:37] VITALS: BP 106/87
[2022-07-22] MEDS ORDERED: RT-ALBUTEROL SULF 2.5 MG/3 ML PRE-MIX VIAL INH PRN (16:45)
[2022-07-22] MEDS ORDERED: MEROPENEM 500 MG/NS 100 ML IVPB IV SCH ×2 (17:00)
--- NOTE | 2022-07-22 19:20 | Anesthesia-Procedure Note ---
Procedures/Interventions Procedure Start/Stop/Diagnosis Date of Procedure: Jul 22, 2022 Start Time: 19:00 Stop Time: 19:15 Central Line/IV Access IV : Location: Right Site: Wrist IV Catheter Type: Peripheral IV IV Catheter Gauge: 24 ANA MCGUIRE CRNA Jul 22, 2022 19:20
[2022-07-22 20:18] VITALS: BP 112/51
[2022-07-22] MEDS: MEROPENEM 500 MG in NS (IVPB) 100 ML IV SCH (22:47)
[2022-07-22] MEDS: MICONAZOLE 2% POWDER (DESENEX AF) 90 GM TOP SCH (22:48)
[2022-07-22 23:28] VITALS: BP 106/56
[2022-07-23 03:09] VITALS: BP 110/50
[2022-07-23] MEDS: MEROPENEM 500 MG in NS (IVPB) 100 ML IV SCH ×3 (05:00→12:15)
[2022-07-23] MEDS: NS IV 1000 ML 1,000 ML IV SCH ×2 (05:32→05:36)
[2022-07-23 06:05] LABS: HEMATOCRIT 40 % (35-52); HEMOGLOBIN 13.1 g/dL (11.5-16.0); MEAN CORPUSCULAR HEMOGLOBIN 30 pg (25-34); MEAN CORPUSCULAR HGB CONC 33 g/dL (32-36); MEAN CORPUSCULAR VOLUME 91 fL (80-99); MEAN PLATELET VOLUME 9.5 fL (9.0-12.2); PLATELET COUNT 163 10^3/uL (130-400); WHITE BLOOD COUNT 9.8 10^3/uL (4.3-11.0)
[2022-07-23 06:20] LABS: POTASSIUM 4.3 MMOL/L (3.6-5.0)
[2022-07-23 06:21] LABS: CALCIUM 9.8 MG/DL (8.5-10.1)
[2022-07-23 06:25] LABS: CREATININE SERUM 0.63 MG/DL (0.60-1.30)
[2022-07-23 08:09] VITALS: BP 117/57
--- NOTE | 2022-07-23 09:09 | Occupational Therapy Eval ---
OT Evaluation-General/PLF Medical Diagnosis Admission Date Jul 22, 2022 at 14:07 Medical Diagnosis: AMS/UTI Onset Date: Jul 22, 2022 Therapy Diagnosis Therapy Diagnosis: weakness/debility Height/Weight Height (Feet): 5 Height (Inches): 2.00 Weight (Pounds): 220 Weight (Ounces): 16.0 Precautions Precautions/Isolations: Standard Precautions Comments Precautions for ECOLI, 3 bedrail up, confusion and pulled IV overnight Weight Bear Status Weight Bearing Restriction: Weight Bearing/Tolerated Referral Referral Reason: Evaluation/Treatment Medical History Pertinent Medical History: Arthritis, GERD, Parkinson's Additional Medical History per nursing pt has a psych disorder Current History FROM [facility] WITH C/O ALTERED MENTAL STATUS STARTING AT [facility] MORN[facility]. [facility] REPORTS PT IS BEING TX FOR UTI AND PCP TOLD [facility] STAFF THAT THE ABX NEEDED TO BE CHANGED. PT HAS BEEN ON ABX X4-5 DAYS Reviewed History: Yes Social History Home: Intermediate Current Living Status: Alone Entry Into Home: Level Entry ADL-Prior Level of Function SCALE: Activities may be completed with or without assistive devices. 5-Dygnexafoy-yqplfve completes the activity by him/herself with no assistance from a helper. 5-Set-up or Clean-up Assistance-helper sets up or cleans up; patient completes activity. [place] assists only prior to or following the activity. 4-Supervision or Touching Assistance-helper provides verbal cues and/or touching/steadying and/or contact guard assistance as patient completes activity. Assistance may be provided throughout the activity or intermittently. 3-Partial/Moderate Assistance-helper does LESS THAN HALF the effort. [place] lifts, holds or supports trunk or limbs, but provides less than half the effort. 2-Substantial/Maximal Assistance-helper does MORE THAN HALF the effort. [place] lifts or holds trunk or limbs and provides more than half the effort. 7-Wmzkdvqfi-gquibl does ALL the effort. Patient does none of the effort to complete the activity. Or, the assistance of 2 or more helpers is required for the patient to complete the activity. If activity was not attempted, code reason: 7-Patient Refused. 9-Not Applicable-not attempted and the patient did not perform the activity before the current illness, exacerbation or injury. 10-Not Attempted due to Environmental Limitations-(lack of equipment, weather restraints, etc.). 88-Not Attempted due to Medical Conditions or Safety Concerns. ADL PLOF Comments Unable to fully determine PLOF d/t patient cognition. Self Care: Unknown Functional Cognition: Needed Some Help Drive Self: No OT Current Status Subjective Patient laying supine in bed, calling out "Hello" Pain Comment: Patient grimaces\\moans reports pain, however when asked to locate does not Mental Status/Objective Patient Orientation: Person, Place Attachments: Arambula Catheter, IV (per nursing patint pulled out IV overninght, new IV in place. possible PICC placement pending) Current Upper Extremity ROM Excessive soft tissue restricts ROM approximation throughout Upper Extremity Strength +3/5 grossly, Requires assist for rolling an sidelying to sit max assist, able to hold self in side lying with use of bed rail for BM hygiene ADL-Treatment Eating (QC): 6 Lower Body Dressing (QC): 1 (2 person assit) On/Off Footwear (QC): 1 Toileting Hygiene (QC): 1 (2 person assit, rolling in bed) Turn schedule, paint remains on right side roll w/ pillow behind back following therapy Education OT Patient Education: Correct positioning, Exercise program, Modified ADL techniques, Progress toward Goal/Update tx plan, Purpose of tx/functional activities, Reviewed precautions, Rehab process, Safety issues, Transfer techniques, Use of adapted equipment Teaching Recipient: Patient Teaching Methods: Demonstration, Discussion Response to Teaching: Verbalize Understanding, Return Demonstration, Reinforcement Needed OT Salvage Determiner Goals Detention Goals Eating (QC): 6 Oral Hygiene (QC): 4 Toileting Hygiene (QC): 3 Shower/Bathe Self (QC): 3 Upper Body Dressing (QC): 3 Lower Body Dressing (QC): 3 On/Off Footwear (QC): 3 1=Demonstrate adherence to instructed precautions during ADL tasks. 2=Patient will verbalize/demonstrate understanding of assistive devices/modifications for ADL. 3=Patient will improve strength/tolerance for activity to enable patient to perform ADL's. OT Education/Plan Problem List/Assessment Assessment: Decreased Activ Tolerance, Decreased Safety Aware, Decreased UE Strength, Dependent Transfers, Impaired Bed Mobility, Impaired Cognition, Impaired Coordination, Impaired Funct Balance, Impaired Self-Care Skills, Restricted Funct UE ROM Unable to sit unsupported EOB Discharge Recommendations Plan/Recommendations: Continue POC Therapy Discharge Recommendati: Post Acute OT Treatment Plan/Plan of Care Treatment,Training & Education: Yes Patient would benefit from OT for education, treatment and training to promote independence in ADL's, mobility, safety and/or upper extremity function for ADL's. Plan of Care: ADL Retraining, Cognitive Retraining, Concurrent Therapy, Functional Mobility, Group Exercise/Act as Ind, UE Funct Exercise/Act, UE Neuromus Re-Ed/Coord Treatment Duration: Sep 04, 2022 Frequency: 3 times per week (3-5 times per wek) Estimated Hrs Per Day: .25 hour per day Agreement: Yes Rehab Potential: Fair Time Start Time: 08:00 Stop Time: 08:24 DATE: Jul 23, 2022 Total Time Billed (hr/min): 24 Billed Treatment Time 1 ELH 10min 1 ADL 14min ALICIA MERRILL OT Jul 23, 2022 09:09
[2022-07-23] MEDS: SINEMET 25/100 (CARBIDOPA/LEVODOPA) TAB PO SCH ×2 (09:13→14:45)
[2022-07-23] MEDS: MICONAZOLE 2% POWDER (DESENEX AF) 90 GM TOP SCH (09:14)
[2022-07-23] MEDS: ACETAMINOPHEN 325 MG TABLET PO PRN ×2 (10:48→15:40)
[2022-07-23 11:40] VITALS: BP 123/59
[2022-07-23] MEDS ORDERED: ERTA1VIA4 IJ (12:18)
[2022-07-23] MEDS ORDERED: ERTAPENEM (NON-FORMULARY) 1,000 MG in NS (IVPB) 50 ML IV SCH (13:00)
--- NOTE | 2022-07-23 13:24 | Discharge Inst-Simple/Standard ---
Discharge Inst-Standard Discharge Medications New, Converted or Re-Newed RX: Transmitted to Pharmacy Patient Instructions/Follow Up Plan of Care/Instructions/FU: Please continue to take your medications as written. Please follow up with your primary care doctor to follow up this hospital stay. Activity as Tolerated: Yes Discharge Diet: No Restrictions Return to The Hospital For: Chest pain, shortness of breath, fever, weakness, if you feel you are getting worse. ELVA VALENZUELA MD Jul 23, 2022 13:24
[2022-07-23] MEDS ORDERED: ONDA-106 PO (13:47)
[2022-07-23] MEDS ORDERED: GUAI-367 PO (13:47)
[2022-07-23] MEDS ORDERED: TRM50T PO (13:47)
[2022-07-23] MEDS ORDERED: ALBU1.25 INH (13:47)
[2022-07-23] MEDS ORDERED: LACT10SO3 PO (13:47)
[2022-07-23] MEDS ORDERED: LORA-404 PO (13:47)
[2022-07-23] MEDS ORDERED: FAMO20TA5 PO (13:47)
[2022-07-23] MEDS ORDERED: L.AC1CAP6 PO (13:47)
[2022-07-23] MEDS ORDERED: GABA-486 PO (13:47)
[2022-07-23] MEDS ORDERED: LOSA50TA63 PO (13:47)
[2022-07-23] MEDS ORDERED: BACL5TAB PO (13:47)
[2022-07-23] MEDS ORDERED: MENT118G TP (13:47)
[2022-07-23] MEDS ORDERED: MIRA25TA PO (13:47)
[2022-07-23] MEDS ORDERED: LINA72CA PO (13:47)
[2022-07-23] MEDS ORDERED: TRAM50TA3 PO (13:47)
[2022-07-23] MEDS ORDERED: SIME125C78 PO (13:47)
[2022-07-23] MEDS ORDERED: CARB1DRO5 OU (13:47)
[2022-07-23] MEDS ORDERED: MAG30ORA2 PO (13:47)
[2022-07-23] MEDS ORDERED: NYST60PO TP (13:47)
[2022-07-23] MEDS ORDERED: PRAM0.5T2 PO (13:47)
[2022-07-23] MEDS ORDERED: LOPE-175 PO (13:47)
[2022-07-23] MEDS ORDERED: PROP10DR3 OU (13:47)
[2022-07-23] MEDS ORDERED: CHOL20003 PO (13:47)
[2022-07-23] MEDS ORDERED: QUET200T29 PO (13:47)
[2022-07-23] MEDS ORDERED: MELA3TAB39 PO (13:47)
[2022-07-23] MEDS ORDERED: MULT-1136 PO (13:47)
[2022-07-23] MEDS ORDERED: CALC1TAB84 PO (13:47)
[2022-07-23] MEDS ORDERED: QUET100T33 PO (13:47)
[2022-07-23] MEDS ORDERED: CARB1TAB45 PO (13:54)
[2022-07-23] MEDS ORDERED: CARB1TAB35 PO (13:54)
[2022-07-23] MEDS ORDERED: ERTA1VIA4 IV (13:57)
--- NOTE | 2022-07-23 15:13 | Discharge Summary ---
Diagnosis/Chief Complaint Date of Admission Jul 22, 2022 at 14:07 Date of Discharge Discharge Date: Jul 23, 2022 Admission Diagnosis Altered Mental Status secondary to UTI Primary Care Leroy Hartmann DO Discharge Summary Discharge Physical Exam Allergies: Coded Allergies: No Known Drug Allergies (Verified , 09/04/11) Vitals & I&Os Vital Signs Date Time Temp Pulse Resp B/P (MAP) Pulse Ox O2 Delivery O2 Flow Rate FiO2 07/23/22 11:40 37.0 80 18 123/59 (80) 94 Room Air 07/22/22 16:37 21 General Appearance: No Apparent Distress, WD/WN Cardiovascular: Regular Rate, Rhythm Neurologic/Psychiatric: Alert Hospital Course Patient was admitted to the hospital secondary to urinary tract infection with ESBL E. coli. She was confused upon arrival to the emergency department so was admitted for IV antibiotics. She was started on Merrem per sensitivities and improved significantly back to her baseline mentation. A PICC line was placed and she was discharged back to her facility for IV ertapenem. She is to follow- up with her primary care physician to follow-up this hospital stay. Labs (last 24 hrs) Laboratory Tests 07/23/22 05:50: White Blood Count 9.8, Red Blood Count 4.42, Hemoglobin 13.1, Hematocrit 40, Mean Corpuscular Volume 91, Mean Corpuscular Hemoglobin 30, Mean Corpuscular Hemoglobin Concent 33, Red Cell Distribution Width 13.8, Platelet Count 163, Mean Platelet Volume 9.5, Sodium Level 135, Potassium Level 4.3, Chloride Level 98, Carbon Dioxide Level 26, Anion Gap 11, Blood Urea Nitrogen 16, Creatinine 0.63, Estimat Glomerular Filtration Rate 93, BUN/Creatinine Ratio 25, Glucose Level 118H, Calcium Level 9.8 Microbiology 07/22/22 Urine Culture - Preliminary, Resulted Escherichia coli Patient resulted labs reviewed. Discussion & Recommendations Discharge Planning: >30 minutes discharge planning Discharge Home Medications: Active Scripts Active Ertapenem (Ertapenem Sodium) 1 Gram Vial 1 Gm IV DAILY Reported Carbidopa-Levodopa 25-250 Tab (Carbidopa/Levodopa) 25 Mg-250 Mg Tablet 1 Each PO 0600 Carbidopa-Levo 25-250 mg Odt (Carbidopa/Levodopa) 25 Mg-250 Mg Tab.rapdis 0.5 Each PO 5XD TAKES AT 0900,1200,1500,1800,2000 Vitamin D3 (Cholecalciferol (Vitamin D3)) 50 Mcg (2000 Unit) Capsule 50 Mcg PO DAILY Tramadol HCl 50 Mg Tablet 50 Mg PO HS Tramadol HCl 50 Mg Tablet 50 Mg PO Q6H PRN Systane Balance (Propylene Glycol) 0.6 % Drops 1 Drop OU QID Simethicone 125 Mg Capsule 125 Mg PO TID Quetiapine Fumarate 200 Mg Tablet 200 Mg PO HS TAKES 2 (100MG) TABS Quetiapine Fumarate 100 Mg Tablet 50 Mg PO 1200 TAKES OF A 100MG Refresh Celluvisc (Carboxymethylcellulose Sodium) 1 % Droper.gel 1 Drop OU HS Probiotic (L.acidoph & Paracasei,B.lactis) 10 Billion Cell Capsule 1 Each PO TID Famotidine 20 Mg Tablet 20 Mg PO DAILY Ondansetron HCl 8 Mg Tablet 8 Mg PO Q6H PRN Nystop (Nystatin) 100,000 Unit/Gram Powder 1 Applic TP BID APPLY UNDER BREAST Myrbetriq (Mirabegron) 25 Mg Tab.er.24h 25 Mg PO DAILY Mylanta Suspension (Al Hydrox/Mg Hydrox/Simethicone) 30 Ml Oral.susp 30 Ml PO Q6H PRN Multivitamin 1 Each Tablet 1 Each PO DAILY Mucinex Dm ER 600-30 mg Tablet (Guaifenesin/Dextromethorphan) 600 Mg-30 Mg Tab.er.12h 1 Each PO Q12H PRN Mirapex (Pramipexole Di-HCl) 0.5 Mg Tablet 0.5 Mg PO BID Melatonin 3 Mg Tablet 3 Mg PO HS Ativan (Lorazepam) 0.5 Mg Tablet 0.5 Mg PO BID Linzess (Linaclotide) 72 Mcg Capsule 72 Mcg PO Q72H Lactulose 10 Gram/15 Ml Solution 30 Ml PO Q12H PRN Imodium A-D (Loperamide HCl) 2 Mg Capsule 4 Mg PO Q6H PRN Gabapentin 100 Mg Capsule 200 Mg PO BID TAKES 2 (100MG) TABS Losartan Potassium 50 Mg Tablet 50 Mg PO DAILY HOLD IF SBP <100 OR PULSE <60 Calcium 600 + Vit D 200 Tablet (Calcium Carbonate/Vitamin D3) 600 Mg Calcium-5 Mcg (200 Unit) Tablet 1 Each PO DAILY Biofreeze (Menthol) 4 % Gel..ml. 1 Applic TP Q8H PRN Baclofen 5 Mg Tablet 5 Mg PO BID Albuterol Sulfate 1.25 Mg/3 Ml Vial.neb 1.25 Mg INH Q6H PRN Tylenol Extra Strength (Acetaminophen) 500 Mg Tablet 1,000 Mg PO Q6H PRN TAKES 2 (500MG) TABLETS Colace (Docusate Sodium) 100 Mg Capsule 100 Mg PO DAILY PRN Instructions to patient/family Please see electronic discharge instructions given to patient. Clinical Quality Measures Stroke: Date of last known well: Jul 22, 2022 Time of last known well: 08:10 ELVA VALENZUELA MD Jul 23, 2022 15:13
[2022-07-23 16:00] VITALS: BP 122/60
[2022-07-23 16:15] VITALS: BP 123/59
== END 2022-07-23 15:05 ==
LOC: EDUNIT# 11:16 → ER 11:17 → 4TH 14:07 → UNDOADMOB 14:07 → 4TH 17:00 → UNDODISOB 07-23 15:05
PROVIDERS: ADMIT Family Medicine; ATTEND Family Medicine
DX: N39.0 Urinary tract infection, site not specified (principal); R79.1 Abnormal coagulation profile; G20 Parkinson's disease; B19.20 Unspecified viral hepatitis C without hepatic coma
CPT/HCPCS: 36569; 70496; 70498; 71045; 76937; 80048; 80053; 81000; 82947; 84484; 85025; 85027; 85379; 85610; 85730; 87077; 87088; 87186; 93005; 93041; 97167; 97535; 99284; C1751; 36415; 96366; 96375; 96376; G0378